=== PATIENT | female | born 1940 | race Caucasian/White ===

== ENCOUNTER 2019-08-01 01:20 | Day surgery (SDC) | payer MEDICARE, SELFPAY ==
[2019-07-26 13:35] VITALS: BMI 41.9
--- NOTE | 2019-07-31 17:20 | WPDANESEPP ---
Anes - Eval Pre Procedure Procedure: Operation Date: 08/01/19 07:30 Proposed Procedures p Screening Colonoscopy - Otoniel Grant MD Date/Time: 07/31/19 17:20 Pre Op Diagnosis: Neoplasm screening Patient Data Age: 78 Gender: F Height: 1.6 m Weight: 107.3 kg Allergies Allergy/AdvReac Type Severity Reaction Status Date / Time Penicillins Allergy Unknown Urticaria Verified 07/26/19 13:29 montelukast AdvReac Intermediate Hallucinati Verified 07/26/19 14:08 ng Home Medications Medication Instructions Recorded Confirmed Type albuterol sulfate 90 mcg/actuation 2 puff INHALATION Q4H PRN gm 05/16/19 07/26/19 History aerosol inhaler cholecalciferol (vitamin D3) 4,000 4,000 unit PO DAILY 05/16/19 07/26/19 History unit capsule coenzyme Q10 100 mg capsule 100 mg PO DAILY 05/16/19 07/26/19 History fluticasone 250 mcg-salmeterol 50 1 inhalation INHALATION BID 05/16/19 07/26/19 History mcg/dose blistr powdr for inhalation levothyroxine 150 mcg tablet 150 mcg PO DAILY 05/16/19 07/26/19 History montelukast 10 mg tablet 10 mg PO DAILY 05/16/19 07/09/19 History multivitamin,ze-gtut-snyrnuwi 1 tablet PO DAILY 05/16/19 07/26/19 History hyoscyamine sulfate 0.125 mg tablet 0.125 mg PO QID PRN #60 tablet 07/09/19 07/26/19 Rx ondansetron HCl 4 mg tablet 4 mg PO Q8H PRN 07/09/19 07/26/19 History peg 3350-electrolytes 236 4,000 ml PO Q10M #4000 ml 07/09/19 Rx gram-22.74 gram-6.74 gram-5.86 gram solution pravastatin 20 mg tablet 20 mg PO DAILY #30 tablet 07/09/19 07/26/19 Rx famotidine [Pepcid AC] 10 mg PO DAILY 07/26/19 07/26/19 History metoprolol succinate 25 mg PO DAILY 07/26/19 07/26/19 History Patient hx anesthesia problems: none Family hx anesthesia problems: none PMFSH Past Medical History Medical History (Updated 07/31/19 @ 17:21 by Jo Ann Mckinney CRNA) 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 artery 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 Fibromyalgia GERD (gastroesophageal reflux disease) Hypothyroidism, unspecified Irritable bowel syndrome with diarrhea Mixed hyperlipidemia Moderate persistent asthma without status asthmaticus without complication Nausea Pancreatitis Surgical History Surgical History (Updated 07/31/19 @ 17:21 by Jo Ann Mckinney CRNA) Hx of cholecystectomy Family History Family History (Updated 10/11/18 @ 13:01 by DOCTOR UNKNOWN) Sibling Family history of condition Family history of Parkinson's disease Social History Social History Smoking status: Never smoker Alcohol intake: never Exam Day of Procedure 07/31/19 17:20
--- NOTE | 2019-08-01 06:38 | WPDANESEFPP ---
Anes - Eval Final PreProcedure Day of Procedure 08/01/19 06:38 Patient weight: morbidly obese Heart: regular rate and rhythm Lungs: clear to auscultation Airway: Mallampati scale class II Neurological: alert and oriented Last oral intake: >/= 8 hours ASA classification: III Emergent: no Anesthetic plan: proceed Anesthesia type and monitoring: general GIVS and standard monitoring Informed Consent: The patient's anesthetic plan and its attendant risks and benefits were discussed with the patient/family/POA. Questions were solicited and answers provided to the satisfaction of the patient/family/POA.
[2019-08-01] MEDS: LACTATED RINGERS 1,000 ML 30 ML IV CONT (06:56)
[2019-08-01 07:12] VITALS: BP 126/98; PULSE 111; RESP 22; TEMP 36; O2SAT 98; BMI 40.1
--- NOTE | 2019-08-01 07:37 | PM.HPGS ---
History of Present Illness History of Present Illness Consent: Risks, benefits, and alternatives have been discussed and questions answered. Patient agrees to proceed with procedure. Chief complaint: Neoplasm screening Narrative: Damaris Wilhelm is a 78 year old female with diarrhea for few months, last colonoscopy 10 years ago Review of Systems Constitutional: Constitutional: Denies headache(s) and Denies weakness Eyes: Eyes: Denies blurry vision ENT: Reports Normal hearing present, Denies headache(s) and Denies neck pain Cardiovascular: Cardiovascular: Denies chest pain and Denies dyspnea Respiratory: Respiratory: Denies dyspnea Gastrointestinal: Gastrointestinal: Reports no additional gastrointestinal complaints Genitourinary: Genitourinary: Denies dysuria Musculoskeletal: Musculoskeletal: Denies neck pain Integumentary/Breasts: Skin/Breast: Denies dry skin Neurologic: Reports Normal hearing present, Denies headache(s) and Denies weakness Psychiatric: Psychiatric: Denies anxiety Endocrine: Endocrine: Denies change in body appearance Hematologic/Lymphatic: Hematologic/Lymphatic: Denies easy bleeding Allergic/Immunologic: Allergic/Immunologic: Denies urticaria PMFSH Past Medical History Medical History (Updated 08/01/19 @ 07:38 by Otoniel Grant MD) 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 artery 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 Diarrhea Fibromyalgia GERD (gastroesophageal reflux disease) Hypothyroidism, unspecified Irritable bowel syndrome with diarrhea Mixed hyperlipidemia Moderate persistent asthma without status asthmaticus without complication Nausea Pancreatitis Surgical History Surgical History (Updated 07/31/19 @ 17:21 by Jo Ann Mckinney CRNA) Hx of cholecystectomy Family History Family History (Updated 10/11/18 @ 13:01 by DOCTOR UNKNOWN) Sibling Family history of condition Family history of Parkinson's disease Social History Social History Smoking status: Never smoker Alcohol intake: never Meds Home Medications and Allergies Home Medications Medication Instructions Recorded Confirmed Type albuterol sulfate 90 mcg/actuation 2 puff INHALATION Q4H PRN gm 05/16/19 08/01/19 History aerosol inhaler cholecalciferol (vitamin D3) 4,000 4,000 unit PO DAILY 05/16/19 07/26/19 History unit capsule coenzyme Q10 100 mg capsule 100 mg PO DAILY 05/16/19 07/26/19 History fluticasone 250 mcg-salmeterol 50 1 inhalation INHALATION BID 05/16/19 07/26/19 History mcg/dose blistr powdr for inhalation levothyroxine 150 mcg tablet 150 mcg PO DAILY 05/16/19 07/26/19 History montelukast 10 mg tablet 10 mg PO DAILY 05/16/19 08/01/19 History multivitamin,ub-yloj-bmfbkqig 1 tablet PO DAILY 05/16/19 07/26/19 History hyoscyamine sulfate 0.125 mg tablet 0.125 mg PO QID PRN #60 tablet 07/09/19 07/26/19 Rx ondansetron HCl 4 mg tablet 4 mg PO Q8H PRN 07/09/19 07/26/19 History pravastatin 20 mg tablet 20 mg PO DAILY #30 tablet 07/09/19 07/26/19 Rx famotidine [Pepcid AC] 10 mg PO DAILY 07/26/19 08/01/19 History metoprolol succinate 25 mg PO DAILY 07/26/19 07/26/19 History Allergies Allergy/AdvReac Type Severity Reaction Status Date / Time Penicillins Allergy Unknown Urticaria Verified 08/01/19 06:42 montelukast AdvReac Intermediate Hallucinati Verified 08/01/19 06:42 ng Vital Signs Vital Signs - 24 hr 08/01/19 07:12 Temperature 96.8 F L Pulse Rate 111 H Respiratory Rate 22 H Blood Pressure 126/98 H Pulse Oximetry 98 Exam Const: General: comfortable and no acute distress Nutritional Appearance: obese HENMT: General nose exam: Normal nares present Eyes: General: appearance normal, both eyes and all related structures Neck: Neck: no JVD Resp: Auscultation: clear to auscultation bilaterally Cardio: Rate: regular rate Rhythm: regular rhythm GI: Inspection: non-distended GI Palp: Yes Soft to p
[2019-08-01 08:00] VITALS: BP 125/65; PULSE 85; RESP 24; O2SAT 99
[2019-08-01 08:10] VITALS: BP 130/76; PULSE 85; RESP 18; O2SAT 98
[2019-08-01 08:20] VITALS: BP 142/64; PULSE 84; RESP 22; O2SAT 99
--- NOTE | 2019-08-01 08:28 | SUR.PHASEII ---
0820 IV D/C'D, SITE WNL/NO ECCYMOSIS.
== END 2019-08-01 08:31 | disposition home or self-care (01) ==
PROVIDERS: PCP Family Medicine; Visit Provider Internal Medicine Gastroenterology
PROC: 0DJD8ZZ Inspection of Lower Intestinal Tract, Via Natural or Artificial Opening Endoscopic (ICD-10-PCS; CPT 45378; principal; 2019-08-01 07:30)
DX: Z12.11 Encounter for screening for malignant neoplasm of colon (principal); K58.0 Irritable bowel syndrome with diarrhea; K57.30 Diverticulosis of large intestine without perforation or abscess without bleeding; K64.8 Other hemorrhoids; I25.10 Atherosclerotic heart disease of native coronary artery without angina pectoris; J45.40 Moderate persistent asthma, uncomplicated; E78.2 Mixed hyperlipidemia; M79.7 Fibromyalgia; H81.10 Benign paroxysmal vertigo, unspecified ear; E03.9 Hypothyroidism, unspecified; K21.9 Gastro-esophageal reflux disease without esophagitis
CPT/HCPCS: 45380; 88305; J2704; J7120

== ENCOUNTER 2020-06-18 06:54 | Outpatient (NON) | payer MEDICARE, SELFPAY ==
[2020-06-18 22:08] LABS: SARS-CoV-2 RNA PCR Negative
== END 2020-06-18 06:55 ==
LOC: ANHCOVIDDT 07:01
PROVIDERS: PCP Family Medicine; Visit Provider Family Medicine
DX: J01.00 Acute maxillary sinusitis, unspecified (principal); Z20.828 Contact with and (suspected) exposure to other viral communicable diseases
CPT/HCPCS: 87635; C9803; U0003

== ENCOUNTER 2020-10-03 12:58 | Outpatient (CLI) | payer MEDICARE, SELFPAY | END 2020-10-03 12:59 | disposition home or self-care (01) | LOC: ANHCOVIDVC 12:58 | PROVIDERS: PCP Family Medicine | DX: Z23 Encounter for immunization (principal) | CPT/HCPCS: 0001A; 91300 ==

== ENCOUNTER 2020-10-24 13:09 | Outpatient (CLI) | payer MEDICARE, SELFPAY | END 2020-10-24 13:10 | disposition home or self-care (01) | LOC: ANHCOVIDVC 13:10 | PROVIDERS: PCP Family Medicine | DX: Z23 Encounter for immunization (principal) | CPT/HCPCS: 0002A; 91300 ==

== ENCOUNTER 2020-11-11 16:00 | Inpatient (IN) | payer MEDICARE, SELFPAY ==
[2020-11-11] VITALS (18 sets, daily range): BP systolic 138–155; BP diastolic 68–91; PULSE 72–96; RESP 11–22; TEMP 36.2–36.7; O2SAT 97–100; BMI 41.8
--- NOTE | ~2020-11-11 | XR_ITS ---
EXAMINATION: XR chest 2V DATE: 11/11/2020 17:29 INDICATION: Left-sided chest pain, asthma and dyspnea on exertion. Weakness and nausea. TECHNIQUE: PA and lateral views of the chest were obtained. COMPARISON: Chest radiograph and CT dated 03/14/2019 FINDINGS: Chronic mild lingular atelectasis/scarring. No new airspace opacities, pulmonary edema, pleural effus ion or pneumothorax. The cardiomediastinal silhouette is normal. Moderate thoracic spondylosis. IMPRESSION: 1. Chronic mild lingular atelectasis/scarring. No acute cardiopulmonary disease. Reviewed, dictated and finalized at location A. IMPRESSION: 1. Chronic mild lingular atelectasis/scarring. No acute cardiopulmonary disease .
--- NOTE | ~2020-11-11 | CT_ITS ---
EXAMINATION: CT abdomen pelvis w con DATE: 11/11/2020 19:32 INDICATION: Generalized abdominal pain. Weight loss for 6 weeks. TECHNIQUE: Computed tomography (CT) of the abdomen and pelvis was performed with 100 cc Omnipaque 350 intravenous contrast. The dose-length product was 1328.09 mGy-cm. Automated exposure control and ite rative reconstruction technique were employed. COMPARISON: CT dated 10/28/2014. FINDINGS: Soft tissue in the breasts is not significantly changed allowing for differences of techniq ue. Heart size normal. No significant pleural or pericardial effusion. Dependent atelectasis. There i s atherosclerosis without aneurysm. No lymphadenopathy. There is atrophy of the psoas muscles, right greater than left. Fatty infiltration of the liver. The spleen, pancreas, adrenal glands are unremarkable. There are su ateral renal cysts. Gallbladder is not identified, likely surgically absent. Nonobstructive bowel gas pattern. Normal appendix. Colonic diverticulosis without evidence for diverticulitis. Small fat-cont aining umbilical hernia. There are bilateral hip arthroplasties. Streak artifact from hip replacement s limit evaluation of the pelvis. No free air or free fluid identified. No acute osseous abnormality. IMPRESSION: 1. No acute abdominal abnormality. Reviewed, dictated and finalized at location A.
--- NOTE | 2020-11-11 16:59 | ECG_ITS ---
Measurements Intervals [place] Rate: 90 P: 8 VA: 202 QRS: -37 QRSD: 82 T: -1 QT: 346 QTc: 425 Interpretive Statements SINUS RHYTHM LEFT AXIS DEVIATION POOR R WAVE PROGRESSION, ANTERIOR LEADS INFERIOR INFARCT, AGE INDETERMINATE ABNORMAL ECG Electronically Signed On 11-11-2020 20:28:41 CDT by Pato Aguirre D.O.
[2020-11-11 17:32] LABS: Basophils Absolute Auto 0.1 K/mm3 (0.0-0.1); Basophils Percent Auto 0.5 % (0.2-1.2); Eosinophils Absolute Auto 0.2 K/mm3 (0-0.3); Eosinophils Percent Auto 1.2 % (0-4.4); Hematocrit 46.2 % (37.0-47.0); Hemoglobin 15.3 g/dL (12.0-15.0); Immature Granulocyte Absolute 0.03 K/mm3 (0.00-0.031); Immature Granulocyte Percent A 0.2 % (0-0.5); Lymphocytes Absolute Auto 3.54 K/mm3 (0.9-3.2); Lymphocytes Percent Auto 27.6 % (18.3-44.2); Mean Corpuscular HGB Conc 33.1 g/dl (32-36); Mean Corpuscular Volume 93.7 fl (80-100); Mean Platelet Volume 10.5 fl (7.4-10.4); Monocytes Absolute Auto 0.7 K/mm3 (0.1-0.6); Monocytes Percent Auto 5.8 % (2.6-8.5); Neutrophils Absolute Auto 8.3 K/mm3 (1.3-6.7); Neutrophils Percent Auto 64.7 % (45.5-73.1); Platelet Count Result 319 k/mm3 (150-375); Red Blood Count 4.93 M/mm3 (4.2-5.4); Red Cell Distribution Width 14.7 % (11.5-14.5); White Blood Count 12.8 K/mm3 (4.5-10.0)
[2020-11-11 17:41] LABS: Anion Gap 12 mmol/L (8-16); Blood Urea Nitrogen 14 mg/dL (7-17); Calcium 9.6 mg/dL (8.4-10.2); Carbon Dioxide 18 mmol/L (22-30); Chloride 110 mmol/L (98-107); Estimated CRCL calculation 63 ml/min; Estimated Glomerular Filt Rate > 60; Glucose 122 mg/dL (65-105); Sodium 140 mmol/L (137-145)
[2020-11-11 17:52] LABS: INR 0.8; Prothrombin Time 12.1 Seconds (11.1-14.7)
[2020-11-11 17:53] LABS: NT Pro B Type Natriuretic Pept 149 pg/mL (5-100); Troponin I < 0.012 ng/mL (0.000-0.034)
--- NOTE | 2020-11-11 19:06 | ED.RECABL ---
HPI - Recheck/Abnormal Lab/Rx General Chief Complaint: Recheck/Abnormal Lab/Rx Stated Complaint: Sob,Elevated Blood Pressure Time Seen by Provider: 11/11/20 19:06 Source: patient Mode of arrival: ambulatory Limitations: no limitations History of Present Illness HPI narrative: Patient is a 80-year-old female complaining of chest discomfort, fatigue, generalized weakness, nausea, loss of appetite and dizziness for the past 6 weeks and getting worse . Patient's chest discomfort is mild intermittent currently denies any pain. Patient also complaining of abdominal discomfort, described as tightness, accompanied by intermittent diarrhea described as loose watery. Patient states that she has been in a lot of stress lately taking care of her sick for the past 6 weeks. Related Data Home Medications Medication Instructions Recorded Confirmed cholecalciferol (vitamin D3) 100 4,000 unit PO DAILY 05/16/19 07/16/20 mcg (4,000 unit) capsule coenzyme Q10 100 mg capsule 100 mg PO DAILY 05/16/19 07/16/20 multivitamin,zi-zbkn-yrmruybm 1 tablet PO DAILY 05/16/19 07/16/20 famotidine [Pepcid AC] 10 mg PO DAILY 07/26/19 07/16/20 metoprolol succinate 25 mg PO DAILY 07/26/19 07/16/20 rosuvastatin 5 mg tablet 5 mg PO DAILY 02/28/20 07/16/20 Allergies Allergy/AdvReac Type Severity Reaction Status Date / Time Penicillins Allergy Unknown Urticaria Verified 11/11/20 19:13 montelukast AdvReac Intermediate Hallucinati Verified 11/11/20 19:13 ng Review of Systems Review of Systems: All systems reviewed & are unremarkable except as noted in HPI and below Constitutional: Constitutional: Denies body ache(s), Denies chills, Denies excessive sweating, Denies fatigue, Denies fever(s), Denies headache(s), Denies lethargy, Denies malaise and Denies weight loss Eyes: Eyes: Denies blurry vision, Denies change in vision and Denies loss of vision ENT: Denies dizziness, Denies ear discharge, Denies headache(s), Denies lip swelling, Denies epistaxis, Denies nasal congestion, Denies neck pain, Denies throat swelling and Denies tongue swelling Cardiovascular: Cardiovascular: Denies chest pain, Denies chest pain at rest, Denies chest pain with activity, Denies diaphoresis, Denies rapid heart rate, Denies edema, Denies irregular heart rhythm, Denies lightheadedness, Denies palpitations and Denies dyspnea Respiratory: Respiratory: Denies chest congestion, Denies cough, Denies hemoptysis and Denies dyspnea Gastrointestinal: Gastrointestinal: Denies melena, Denies hematochezia, Denies diarrhea, Denies vomiting and Denies hematemesis Musculoskeletal: Musculoskeletal: Denies abnormal gait, Denies deformity, Denies joint swelling, Denies limited range of motion, Denies neck pain and Denies numbness Neurologic: Denies Abnormal speech present, Denies abnormal gait, Denies confusion, Denies headache(s), Denies focal weakness, Denies loss of vision, Denies numbness, Denies Other visual disturbances, Denies Sensory deficit (Neuro) and Denies weakness Psychiatric: Psychiatric: Denies confusion, Denies depression, Denies auditory hallucinations, Denies homicidal ideation and Denies suicidal ideation Endocrine: Endocrine: Denies cold intolerance, Denies excessive sweating, Denies fatigue, Denies heat intolerance and Denies palpitations Hematologic/Lymphatic: Hematologic/Lymphatic: Denies easy bleeding and Denies easy bruising Allergic/Immunologic: Allergic/Immunologic: Denies lip swelling, Denies throat swelling and Denies tongue swelling PMFSH Past Medical History Medical History Abnormal fasting glucose Acute non-recurrent maxillary sinusitis 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 artery 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 Diarrhea Fibromyalgia GERD (gastroesophageal reflux disease) Hirsutism Hypothyroidism, unspecified Irritable bowel syndrome with diarrhea Migraine wit
[2020-11-11] MEDS: LACTATED RINGERS 1,000 ML 500 ML IV CONT (20:26)
[2020-11-11 20:57] LABS: Add Urine Microscopic? YES; Appearance Urine Cloudy (Clear); Bacteria Urine Trace /hpf; Bilirubin Urine Negative (Negative); Color Urine Yellow (Yellow); Glucose Urine UA Negative (Negative); Ketones Urine Negative (Negative); Leukocyte Esterase Ur 3+ LEU/UL (Negative); Mucus Urine Moderate /lpf; Nitrate Urine Negative (Negative); Protein Urine Negative (Negative); RBC Urine 21-50 /hpf (0-2); Squamous Epithelial Cell Urine Many /hpf (Few); Urobilinogen Urine Negative mg/dL (<2.0); WBC Urine >75 /hpf
[2020-11-11 21:01] LABS: Blood Urine Negative (Negative); Specific Grav Ur 1.015 (1.001-1.035)
[2020-11-11] MEDS: ASPIRIN 81 MG CHEWABLE TABLET 324 MG PO (21:25)
[2020-11-11 22:21] LABS: Troponin I < 0.012 ng/mL (0.000-0.034)
--- NOTE | 2020-11-11 22:53 | ADMGEN ---
This patient, Damaris Wilhelm, was admitted to 2 Medical Room 256-01. Patient/family oriented to hospital policies and general routines including ID bracelet, bed and alarms, visiting hours, pain management, procedures, bathroom and other care routines, personal items, smoking policy, room service/diet, and visiting hours. Information on how to activate the Rapid Response Team has been discussed. Patient/Family are encouraged to report perceived risks to care and to ask questions if they do not understand what they are told or what they should do.
[2020-11-12] VITALS (10 sets, daily range): BP systolic 126–149; BP diastolic 60–73; PULSE 73–89; RESP 12–18; TEMP 35.6–36.3; O2SAT 95–97; BMI 41.8
[2020-11-12 01:33] LABS: Troponin I < 0.012 ng/mL (0.000-0.034)
--- NOTE | 2020-11-12 03:20 | PM.IMHP ---
H&P: HPI History of Present Illness Date/Time: 11/12/20 03:20 Chief Complaint: Weakness Narrative: This is a 80-year-old female with past medical history significant for irritable bowel syndrome, asthma, obesity, impaired glucose tolerance ,hypertension. Patient presented to the emergency room due to generalized weakness of burning with urination poor appetite ,chills, nausea but no vomiting, fatigue. Patient states that she has been taking care of her for the last 6 weeks after he fell ill and has taken a toll on her she has barely any energy to feed the cat and dog . Today she presented to the emergency after at home she had an episode of dizziness checked her blood pressure was 168 over 95 and that was sitting in when she stood up it went up to 185 over 98. Patient denies any near syncope ,syncope, falls, chest pain, shortness of breath, cough, sputum production, no leg swelling no PND no orthopnea. Preliminary workup was significant for a urinalysis with wbc's over 75 per high power field. CBC with mild leukocytosis. A chest x-ray was clear for any infiltrate Review of Systems Review of Systems: Narrative: Patient presented to the emergency room due to dizziness fatigue generalized weakness poor appetite Constitutional: Constitutional: Reports chills, Reports fatigue, Reports lethargy, Reports poor appetite and Reports weakness Eyes: Eyes: Denies change in vision ENT: Denies nasal congestion, Denies nasal discharge and Denies nasal obstruction Cardiovascular: Cardiovascular: Denies irregular heart rhythm, Denies leg edema, Denies lightheadedness, Denies radiating jaw, neck or arm pain, Denies palpitations, Denies dyspnea and Denies dyspnea on exertion Respiratory: Respiratory: Denies cough and Denies dyspnea Gastrointestinal: Gastrointestinal: Denies change in bowel habits, Denies nausea and Denies vomiting Genitourinary: Genitourinary: Reports dysuria Musculoskeletal: Musculoskeletal: Reports muscle weakness Integumentary/Breasts: Skin/Breast: Denies rash Neurologic: Denies focal weakness and Denies Sensory deficit (Neuro) Psychiatric: Psychiatric: Reports no additional psychiatric complaints Endocrine: Endocrine: Reports no additional endocrine complaints Hematologic/Lymphatic: Hematologic/Lymphatic: Reports no additional hematologic/lymphatic complaints Allergic/Immunologic: Allergic/Immunologic: Reports no additional allergic/immunologic complaints PMFSH Past Medical History Medical History Abnormal fasting glucose Acute non-recurrent maxillary sinusitis 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 artery 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 Diarrhea Fibromyalgia GERD (gastroesophageal reflux disease) Hirsutism Hypothyroidism, unspecified Irritable bowel syndrome with diarrhea Migraine without aura and without status migrainosus, not intractable Mixed hyperlipidemia Moderate persistent asthma without status asthmaticus without complication Nausea Neoplasm of skin of cheek Pancreatitis Surgical History Surgical History Hx of cholecystectomy Family History Family History Sibling Family history of condition Family history of Parkinson's disease Social History Social History Smoking status: Never smoker Alcohol intake: never Substance use: never Substance use type: does not use Gender identity (if verbalized by the patient): Female Spiritual care concerns: No Meds Home Medications and Allergies Home Medications Medication Instructions Recorded Confirmed Type cholecalciferol (vitamin D3) 100 4,000 unit PO DAILY 05/16/19 11/11/20 History mcg (4,000 unit) capsule coenzyme Q10 100 mg capsule 100 mg PO DAILY 05/16/19 0
[2020-11-12] MEDS: ONDANSETRON HCL ODT 4 MG TABLET PO ×2 (05:20→13:02)
[2020-11-12] MEDS: LEVOTHYROXINE SODIUM 150 MCG TABLET PO (06:01)
[2020-11-12] MEDS: FLUTICASONE/SALMETEROL 115-21 MCG INHALER 1 PUFF 2 PUFF INHALATION ×2 (09:42→21:25)
[2020-11-12] MEDS: SPIRONOLACTONE 25 MG TABLET PO ×2 (09:50→16:25)
[2020-11-12] MEDS: THERAPEUTIC MULTIVITAMINS/MINERALS TAB (*BKC) 1 TABLET PO (09:50)
[2020-11-12] MEDS: METOPROLOL SUCCINATE EXT REL 25 MG TABCR PO (09:50)
[2020-11-12] MEDS: FAMOTIDINE 10 MG TABLET PO (09:50)
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
[2020-11-12] MEDS: polyethylene glycoL 3350 17 GM POWD.PACK PO (14:26)
[2020-11-12] MEDS: PANTOPRAZOLE SODIUM IV 40 MG VIAL IV PUSH (14:26)
[2020-11-12 14:39] LABS: D Dimer 0.27 ug/mL (<0.48)
[2020-11-12] MEDS: diazePAM (*CRX) 2 MG TABLET PO (16:28)
[2020-11-13] VITALS (7 sets, daily range): BP systolic 130–136; BP diastolic 63–65; PULSE 68–113; RESP 18; TEMP 36.2–36.5; O2SAT 96–97
[2020-11-13 05:38] LABS: Basophils Absolute Auto 0.1 K/mm3 (0.0-0.1); Basophils Percent Auto 0.5 % (0.2-1.2); Eosinophils Absolute Auto 0.2 K/mm3 (0-0.3); Eosinophils Percent Auto 2.4 % (0-4.4); Hematocrit 40.4 % (37.0-47.0); Hemoglobin 13.1 g/dL (12.0-15.0); Immature Granulocyte Absolute 0.02 K/mm3 (0.00-0.031); Immature Granulocyte Percent A 0.2 % (0-0.5); Lymphocytes Percent Auto 37.3 % (18.3-44.2); Mean Corpuscular HGB Conc 32.4 g/dl (32-36); Mean Corpuscular Hemoglobin 30.8 pg (26-34); Mean Corpuscular Volume 95.1 fl (80-100); Mean Platelet Volume 10.4 fl (7.4-10.4); Monocytes Absolute Auto 0.8 K/mm3 (0.1-0.6); Monocytes Percent Auto 8.9 % (2.6-8.5); Neutrophils Absolute Auto 4.6 K/mm3 (1.3-6.7); Neutrophils Percent Auto 50.7 % (45.5-73.1); Platelet Count Result 277 k/mm3 (150-375); Red Blood Count 4.25 M/mm3 (4.2-5.4); White Blood Count 9.1 K/mm3 (4.5-10.0)
[2020-11-13 05:50] LABS: Alanine Aminotransferase 24 U/L (4-35); Albumin Level 3.4 g/dL (3.5-5.1); Alkaline Phosphatase 67 U/L (38-126); Anion Gap 7 mmol/L (8-16); Aspartate Amino Transferase 28 U/L (14-36); Bilirubin,Total 0.3 mg/dL (0.2-1.3); Blood Urea Nitrogen 10 mg/dL (7-17); Carbon Dioxide 27 mmol/L (22-30); Chloride 109 mmol/L (98-107); Estimated CRCL calculation 50 ml/min; Estimated Glomerular Filt Rate 60; Glucose 120 mg/dL (65-105); Potassium 3.9 mmol/L (3.4-5.0); Sodium 143 mmol/L (137-145)
[2020-11-13] MEDS: LEVOTHYROXINE SODIUM 150 MCG TABLET PO (05:56)
[2020-11-13 06:44] LABS: Thyroid Stimulating Hormone Reflex 0.833 uIU/mL (0.465-4.68)
[2020-11-13] MEDS: polyethylene glycoL 3350 17 GM POWD.PACK PO (08:35)
[2020-11-13] MEDS: THERAPEUTIC MULTIVITAMINS/MINERALS TAB (*BKC) 1 TABLET PO (08:36)
[2020-11-13] MEDS: METOPROLOL SUCCINATE EXT REL 25 MG TABCR PO (08:36)
[2020-11-13] MEDS: PANTOPRAZOLE SODIUM IV 40 MG VIAL IV PUSH (08:37)
[2020-11-13] MEDS: FLUTICASONE/SALMETEROL 115-21 MCG INHALER 1 PUFF 2 PUFF INHALATION (08:38)
[2020-11-13] MEDS: SPIRONOLACTONE 25 MG TABLET PO (08:38)
--- NOTE | 2020-11-13 09:15 | PM.DS ---
DS: Admitting Diagnosis Admitting Diagnosis Admitting Diagnosis: uti DS: Discharge Diagnosis Discharge Diagnosis (1) Urinary tract infection: Qualifiers: Hematuria presence: without hematuria Urinary tract infection type: site unspecified Qualified Code(s): N39.0 - Urinary tract infection, site not specified Code(s): N39.0 - Urinary tract infection, site not specified Status: Acute Assessment and Plan: Growth of mixed ya suggesting possible contamination but the patient had improvement with oral antibiotics -will finish off antibiotics outpatient (2) Abnormal fasting glucose: Code(s): R73.01 - Impaired fasting glucose Status: Acute Assessment and Plan: A1c 6.1 -follow with primary -continue home metformin (3) Moderate persistent asthma without status asthmaticus without complication: Code(s): J45.40 - Moderate persistent asthma, uncomplicated Status: Acute Assessment and Plan: Stable, I do not suspect this to be the cause of her dyspnea on exertion. (4) Benign paroxysmal positional vertigo due to bilateral vestibular disorder: Code(s): H81.13 - Benign paroxysmal vertigo, bilateral Status: Acute Assessment and Plan: Patient has had this for 2 years -much better at discharge, back to baseline -follow-up with ENT (5) Hypothyroidism, unspecified: Qualifiers: Hypothyroidism type: unspecified Qualified Code(s): E03.9 - Hypothyroidism, unspecified Code(s): E03.9 - Hypothyroidism, unspecified Status: Acute Assessment and Plan: TSH WNL -continue levothyroxine (6) Fibromyalgia: Code(s): M79.7 - Fibromyalgia Status: Acute Assessment and Plan: Chronic and stable (7) GERD (gastroesophageal reflux disease): Qualifiers: Esophagitis presence: without esophagitis Qualified Code(s): K21.9 - Gastro-esophageal reflux disease without esophagitis Code(s): K21.9 - Gastro-esophageal reflux disease without esophagitis Status: Acute Assessment and Plan: Will start Protonix instead of Pepcid since the patient has been having nausea and vomiting for 6 weeks -consider outpatient GI follow-up for EGD if she continues to have problems (8) Coronary artery 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: Qualifiers: Coronary Disease-Associated Artery/Lesion type: unspecified vessel or lesion type [place] vs. transplanted heart: absentee-[place] heart Qualified Code(s): I25.10 - Atherosclerotic heart disease of [place] coronary artery without angina pectoris Code(s): I25.10 - Atherosclerotic heart disease of [place] coronary artery without angina pectoris Status: Acute Assessment and Plan: No acute issues -troponins negative x3, BNP slightly elevated but not worrisome for her age (9) Irritable bowel syndrome with diarrhea: Code(s): K58.0 - Irritable bowel syndrome with diarrhea Status: Acute Assessment and Plan: She is a bit constipated -start MiraLax (10) Generalized weakness: Code(s): R53.1 - Weakness Status: Acute Assessment and Plan: Secondary due to her dizziness and now worsened with her UTI -she did well with PT/OT and felt to be back to her baseline (11) Dyspnea on exertion: Code(s): R06.00 - Dyspnea, unspecified Status: Acute Assessment and Plan: Resolved -Could be due to deconditioning or acute illness -d-dimer neg, no hypoxia, no cp or SOB day of discharge. PE less likely -she sees Dr. Tafoya is group and last had a specialized CT which showed 25% disease and cardiac catheterization within the last 10 years with no intervention -she also had a stress test -follow-up with his office (12) Dizziness: Code(s): R42 - Dizziness and giddiness Status: Acute Assessment and Plan: Acute on chronic -she said this starte
== END 2020-11-13 17:30 | disposition home or self-care (01) | DRG 690 ==
LOC: ANHED 21:18 → ANH2MED 22:00
PROVIDERS: Emergency Medicine; Physician Assistant; Admitting Provider Internal Medicine; Emergency Provider Emergency Medicine; PCP Family Medicine; Visit Provider Family Medicine
DX: N39.0 Urinary tract infection, site not specified (principal); Z68.41 Body mass index [BMI] 40.0-44.9, adult; R73.01 Impaired fasting glucose; J45.40 Moderate persistent asthma, uncomplicated; H81.13 Benign paroxysmal vertigo, bilateral; E03.9 Hypothyroidism, unspecified; M79.7 Fibromyalgia; R06.00 Dyspnea, unspecified; K21.9 Gastro-esophageal reflux disease without esophagitis; I25.10 Atherosclerotic heart disease of native coronary artery without angina pectoris; K58.0 Irritable bowel syndrome with diarrhea; L68.0 Hirsutism; E66.9 Obesity, unspecified; J45.909 Unspecified asthma, uncomplicated; Z90.49 Acquired absence of other specified parts of digestive tract
CPT/HCPCS: 36415; 71046; 74177; 80048; 80076; 81001; 83880; 84443; 84484; 85025; 85380; 85610; 85730; 87086; 87088; 93005; 96361; 96365; 97110; 97116; 97161; 99285; A9270; C9113; G0378; J0696; J7120; Q9967

== ENCOUNTER 2021-11-09 15:06 | Inpatient (IN) | payer MEDICARE, SELFPAY ==
[2021-11-09] VITALS (12 sets, daily range): BP systolic 141–180; BP diastolic 84–113; PULSE 90–118; RESP 16–26; TEMP 36.5; O2SAT 92–94
--- NOTE | ~2021-11-09 | XR_ITS ---
EXAMINATION: XR chest 2V Exam Date/Time: 11/09/2021 15:45 CDT HISTORY: SOB, HX CAD, HX ASTHMA, HEADACHE Comparison: 11/11/2020. RESULT: Lines, tubes, and devices: None. Lungs and pleura: Clear. Cardiomediastinal silhouette: Stable cardiomediastinal silhouette. Other: No acute osseous or upper abdominal finding. IMPRESSION: No acute cardiopulmonary process. Reviewed, dictated and finalized at location K.
--- NOTE | ~2021-11-09 | CT_ITS ---
EXAMINATION: CTA chest PE protocol DATE: 11/09/2021 17:29 CDT INDICATION: Chest pain. Anxiety. Elevated d-dimer. Shortness of breath. TECHNIQUE: Computed tomographic angiography (CTA) of the chest was performed with 100 mL Omnipaque-35 0 intravenous contrast. The dose-length product was 888.09 mGy-cm. Maximum intensity projection 3D-re constructions of the aorta and other arteries were constructed by the technologist on a separate work station. COMPARISON: CT dated 03/14/2019. FINDINGS: Study is technically adequate. There is large amount of thrombus in the main pulmonary kimberley mona as well as bilateral segmental and subsegmental pulmonary arteries, consistent with pulmonary em bolism. There is atherosclerosis of the aorta without evidence for aneurysm or dissection. No signifi cant pleural or pericardial effusion. No thoracic lymphadenopathy. There are patchy groundglass opaci ties throughout both lungs and. There is dependent atelectasis. No endobronchial lesions. There is a 1.6 cm left renal cyst. IMPRESSION: 1. Bilateral pulmonary embolism, moderate-large thrombus burden. 2: Patchy groundglass opacities in both lungs which may reflect small airway disease or infection. Dr. Andrés Perry discussed with Dr. Derrick Jiménez MD at 11/09/2021 17:35 CDT. Reviewed, dictated and finalized at location A. IMPRESSION: 1. Bilateral pulmonary embolism, moderate-large thrombus burden. 2: Patchy groundglass opacities in both lungs which may reflect small airway d isease or infection. Dr. Andrés Perry discussed with Dr. Derrick Jiménez MD at 11/09/2021 17:35 CDT.
--- NOTE | ~2021-11-09 | US_ITS ---
EXAMINATION: US venous doppler [facility] DATE: 11/10/2021 08:21 INDICATION: Pulmonary embolism TECHNIQUE: Grayscale ultrasound images without and with compression and Doppler ultrasound images of the bilateral lower extremity veins were obtained. COMPARISON: None. FINDINGS: The visualized portions of right common femoral vein, profunda (deep) femoral vein, femoral vein, pop liteal vein, posterior tibial veins, peroneal veins, gastrocnemius vein and greater saphenous vein ou tflow are patent. Noncompressible deep venous thrombosis in the left popliteal vein as well as the left posterior tibia l and popliteal veins. The visualized portions of left common femoral vein, profunda femoral vein, fe moral vein, gastrocnemius vein and greater saphenous vein outflow are patent. IMPRESSION: 1. Left-sided ijvjp-[id number]-zoov deep venous lumbosacral left popliteal, posterior tibial and peroneal v eins. 2. No right-sided deep venous necrosis. Reviewed, dictated and finalized at location D. IMPRESSION: 1. Left-sided [id number]-kut-[id number] deep venous lumbosacral left popliteal, posterior tibial and peroneal veins. 2. No right-sided deep venous necrosis.
--- NOTE | 2021-11-09 15:17 | ECG_ITS ---
Measurements Intervals [place] Rate: 108 P: [place]: 0 QRS: -39 QRSD: 95 T: 16 QT: 343 QTc: 461 Interpretive Statements SINUS RHYTHM CHANGES TO ATRIAL TACHYCARDIA, THEN CHANGES TO SINUS RHYTHM LEFT AXIS DEVIATION ANTEROSEPTAL INFARCT, AGE INDETERMINATE CONSIDER INFERIOR INFARCT, AGE INDETERMINATE ABNORMAL ECG Electronically Signed On 11-10-2021 08:29:52 CDT by Pato NAPOLES
[2021-11-09 15:52] LABS: Basophils Absolute Auto 0.1 K/mm3 (0.0-0.1); Basophils Percent Auto 0.5 % (0.2-1.2); Eosinophils Absolute Auto 0.2 K/mm3 (0-0.3); Eosinophils Percent Auto 1.5 % (0-4.4); Hematocrit 46.3 % (37.0-47.0); Hemoglobin 15.8 g/dL (12.0-15.0); Immature Granulocyte Absolute 0.05 K/mm3 (0.00-0.031); Immature Granulocyte Percent A 0.4 % (0-0.5); Lymphocytes Absolute Auto 3.52 K/mm3 (0.9-3.2); Lymphocytes Percent Auto 26.6 % (18.3-44.2); Mean Corpuscular HGB Conc 34.1 g/dl (32-36); Mean Corpuscular Hemoglobin 31.6 pg (26-34); Mean Corpuscular Volume 92.6 fl (80-100); Mean Platelet Volume 10.6 fl (7.4-10.4); Monocytes Absolute Auto 0.8 K/mm3 (0.1-0.6); Neutrophils Absolute Auto 8.6 K/mm3 (1.3-6.7); Platelet Count Result 228 k/mm3 (150-375); Red Cell Distribution Width 14.1 % (11.5-14.5); White Blood Count 13.2 K/mm3 (4.5-10.0)
--- NOTE | 2021-11-09 15:54 | ED.SOB ---
HPI - SOB/Dyspnea General Chief Complaint: Shortness of Breath/Dyspnea Stated Complaint: SOB Time Seen by Provider: 11/10/21 07:32 Related Data Home Medications Medication Instructions Recorded Confirmed cholecalciferol (vitamin D3) 100 4,000 unit PO DAILY 05/16/19 09/16/21 mcg (4,000 unit) capsule coenzyme Q10 100 mg capsule (Co 100 mg PO DAILY 05/16/19 09/16/21 Q-10) multivitamin,yc-qvfe-[id number] 1 tablet PO DAILY 05/16/19 09/16/21 (Complete Multivitamin) Allergies Allergy/AdvReac Type Severity Reaction Status Date / Time Penicillins Allergy Unknown Urticaria Verified 11/09/21 15:19 montelukast AdvReac Intermediate Hallucinati Verified 11/09/21 15:19 ng PMFSH Past Medical History Medical History Abnormal fasting glucose Acute non-recurrent maxillary sinusitis Anxiety Benign paroxysmal positional vertigo due to bilateral vestibular disorder Candidiasis of genitalia in female Chronic depression (~06/2021) Controlled diabetes mellitus Coronary artery 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 cardiac catheterization 04/02/2019 with diffuse mild coronary artery disease with 25-40% lesion of the LAD, diagonal, circumflex, and obtuse marginal with normal right coronary artery. Diarrhea Fibromyalgia GERD (gastroesophageal reflux disease) Hirsutism Hypothyroidism, unspecified Irritable bowel syndrome with diarrhea Migraine without aura and without status migrainosus, not intractable Mixed hyperlipidemia Moderate persistent asthma without status asthmaticus without complication Nausea Neoplasm of skin of cheek Pancreatitis Surgical History Surgical History Hx of cholecystectomy Family History Family History Sibling Family history of condition Family history of Parkinson's disease Social History Social History Smoking status: Never smoker Alcohol intake: never Substance use: never Substance use type: does not use Gender identity (if verbalized by the patient): Female Spiritual care concerns: No Course Vital Signs Vital signs: Vital Signs Temperature 97.7 F 11/09/21 15:13 Pulse Rate 118 H 11/09/21 15:13 Respiratory Rate 18 11/09/21 15:13 Blood Pressure 180/112 H 11/09/21 15:13 Pulse Oximetry 94 11/09/21 15:13 Oxygen Delivery Room Air 11/09/21 15:13 Temperature 97.7 F 11/09/21 15:13 Pulse Rate 94 11/10/21 10:00 Respiratory Rate 16 11/10/21 10:48 Blood Pressure 124/65 11/10/21 10:48 Pulse Oximetry 96 11/10/21 10:00 Oxygen Delivery Room Air 11/10/21 01:22 MDM - SOB/Dyspnea Lab Data Result diagrams: 11/09/21 15:40 11/09/21 16:22 Labs: Lab Results 11/09/21 11/09/21 11/09/21 Range/Units 15:40 15:41 16:22 WBC 13.2 H (4.5-10.0) K/mm3 RBC 5.00 (4.2-5.4) M/mm3 Hgb 15.8 H (12.0-15.0) g/dL Hct 46.3 (37.0-47.0) % MCV 92.6 (80-100) fl MCH 31.6 (26-34) pg MCHC 34.1 (32-36) g/dl RDW 14.1 (11.5-14.5) % Plt Count 228 (150-375) k/mm3 MPV 10.6 H (7.4-10.4) fl Immature Gran % (Auto) 0.4 (0-0.5) % Neut % (Auto) 65.0 (45.5-73.1) % Lymph % (Auto) 26.6 (18.3-44.2) % Andrew % (Auto) 6.0 (2.6-8.5) % Eos % (Auto) 1.5 (0-4.4) % Baso % (Auto) 0.5 (0.2-1.2) % Lymph # (Auto) 3.52 H (0.9-3.2) K/mm3 Andrew # (Auto) 0.8 H (0.1-0.6) K/mm3 Eos # (Auto) 0.2 (0-0.3) K/mm3 Baso # (Auto) 0.1 (0.0-0.1) K/mm3 Abs Immat Gran (auto) 0.05 H (0.00-0.031) K/mm3 Absolute Neuts (auto) 8.6 H (1.3-6.7) K/mm3 Absolute Nucleated RBC 0.0 (0.0-0.012) K/mm3 Nucleated RBC % 0.0 (0.0-0.2) % D-Dimer 16.33 H (<0.48) ug/mL Sodium 142 (137-145) mmol/L Potassium 4.0 (3.4-5.0) mmol/L Chloride 111 H (98-107) mmol/L Carbon
--- NOTE | 2021-11-09 16:17 | ER_ITS ---
HPI - SOB/Dyspnea General Chief Complaint: Shortness of Breath/Dyspnea Stated Complaint: SOB Time Seen by Provider: 11/10/21 07:32 Related Data HPI: Patient is 81 years old white female came to the emergency room with gradual increase shortness of breath over the last few weeks. She denies any fever, chills, nausea, vomiting, chest pain. Home Medications Medication Instructions Recorded Confirmed cholecalciferol (vitamin D3) 100 4,000 unit PO DAILY 05/16/19 09/16/21 mcg (4,000 unit) capsule coenzyme Q10 100 mg capsule (Co 100 mg PO DAILY 05/16/19 09/16/21 Q-10) multivitamin,nt-xzqd-[id number] 1 tablet PO DAILY 05/16/19 09/16/21 (Complete Multivitamin) Allergies Allergy/AdvReac Type Severity Reaction Status Date / Time Penicillins Allergy Unknown Urticaria Verified 11/09/21 15:19 montelukast AdvReac Intermediate Hallucinati Verified 11/09/21 15:19 ng [facility] Past Medical History Medical History Abnormal fasting glucose Acute non-recurrent maxillary sinusitis Anxiety Benign paroxysmal positional vertigo due to bilateral vestibular disorder Candidiasis of genitalia in female Chronic depression (~06/2021) Controlled diabetes mellitus Coronary artery 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 cardiac catheterization 04/02/2019 with diffuse mild coronary artery disease with 25-40% lesion of the LAD, diagonal, circumflex, and obtuse marginal with normal right coronary artery. Diarrhea Fibromyalgia GERD (gastroesophageal reflux disease) Hirsutism Hypothyroidism, unspecified Irritable bowel syndrome with diarrhea Migraine without aura and without status migrainosus, not intractable Mixed hyperlipidemia Moderate persistent asthma without status asthmaticus without complication Nausea Neoplasm of skin of cheek Pancreatitis Surgical History Surgical History Hx of cholecystectomy Family History Family History Sibling Family history of condition Family history of Parkinson's disease Social History Social History Smoking status: Never smoker Alcohol intake: never Substance use: never Substance use type: does not use Gender identity (if verbalized by the patient): Female Spiritual care concerns: No Review of system: CONSTITUTIONAL: Denies fever, chills, or sweats. EYES: Denies visual changes, redness, or discharge. ENT: Denies rhinorrhea, congestion, sore throat, or otalgia. CARDIOVASCULAR: Denies chest pain, palpitations, or edema. RESPIRATORY: Gradual shortness of breath GASTROINTESTINAL: Denies abdominal pain, nausea, vomiting, or diarrhea. GENITOURINARY: Denies dysuria or hematuria. SKIN: Denies rash or itching. MUSCULOSKELETAL: Denies back pain, joint pain, or myalgia. NEUROLOGIC: Denies headache, numbness, or weakness. PSYCHIATRIC: Denies anxiety or depression. , Physical examination: General appearance: Well-developed, well-nourished Skin: Normal color Head: Normocephalic, nontraumatic Eyes: Clear conjunctiva ENT: Oropharynx normal, ears normal, nose normal Neck: Supple, nontender Chest and respiratory: Airway patent, no respiratory distress, no accessory muscle use Heart: Regular rate/rhythm Abdomen: Soft, nontender, no organomegaly, quiet bowel sounds Vascular: Normal peripheral pulses, normal capillary refill. Musculoskeletal: Normal range of motion, nontender back Neurologic: Alert and oriented ?3, [employer]ICAL ENGINEER is normal as tested, no gross
[2021-11-09 16:36] LABS: D Dimer 16.33 ug/mL (<0.48)
[2021-11-09 16:41] LABS: Alanine Aminotransferase 26 U/L (6-35); Alkaline Phosphatase 99 U/L (38-126); Anion Gap 10 mmol/L (8-16); Aspartate Amino Transferase 34 U/L (14-36); Bilirubin,Total 0.4 mg/dL (0.2-1.3); Blood Urea Nitrogen 14 mg/dL (7-17); Calcium 9.1 mg/dL (8.4-10.2); Carbon Dioxide 21 mmol/L (22-30); Chloride 111 mmol/L (98-107); Estimated CRCL calculation 58 ml/min; Estimated Glomerular Filt Rate > 60; Glucose 133 mg/dL (65-110); Sodium 142 mmol/L (137-145)
[2021-11-09] MEDS: ENOXAPARIN 100 MG/ML SYRINGE SUB-Q (17:06)
[2021-11-09 17:10] LABS: NT Pro B Type Natriuretic Pept 261 pg/mL (5-100); Troponin I 0.122 ng/mL (0.000-0.034)
[2021-11-09 17:37] LABS: Alveolar/Arterial O2 Gradient 57.1 mmHg; Base Excess ABG -4.4 mEq/l (+/-2.0); Fractional Inspired Oxygen 21 %; HCO3 ABG 17.4 mEq/l (22.0-26.0); Oxygen Saturation ABG 93.7 % (95.0-100.0); Oxyhemoglobin 92.4 % THb (90.0-100.0); PCO2 ABG 24.9 mmHg (35.0-45.0); PO2 ABG 62.8 mmHg (80.0-100.0); PO2 FiO2 Ratio Arterial Blood 2.99 %; Total Hemoglobin 15.4 g/dL (12.0-18.0); pH ABG 7.462 (7.350-7.450)
[2021-11-09 17:38] LABS: Device ROOM AIR; Modified Allen's Test Pass; Site Drawn RIGHT RADIAL
[2021-11-09 20:16] LABS: Troponin I 0.122 ng/mL (0.000-0.034)
--- NOTE | 2021-11-09 23:20 | PC.NURSE ---
Assumed care of pt at this time, report taken from Ashley LNIN
--- NOTE | 2021-11-09 23:46 | PC.NURSE ---
Pt states she has not urinated since 11am this morning. Per bladder scan, pt has approx 278 mL in bladder. EDP notified.
[2021-11-10] VITALS (89 sets, daily range): BP systolic 104–161; BP diastolic 54–98; PULSE 78–126; RESP 13–24; TEMP 36.8; O2SAT 85–97; BMI 39.5
--- NOTE | 2021-11-10 | ECHO_ITS ---
Patient Info Name: Damaris Wilhelm Age: 81 years : 1940 Gender: Female Ht: 64 in Wt: 231 lbs BSA: 2.23 m2 HR: 78 bpm BP: 117 / 70 mmHg Heart Rhythm: Sinus Rhythm Technical Quality: Fair Exam Date: 11/10/2021 12:55 PM Exam Location: [facility] Pulmonary Patient Status: Emergency Admit Date: 11/09/2021 Staff Ordering Physician: Derrick Jiménez MD Aircraft Magneto Mechanic: Viky Stuart RDCS Attending Provider: Derrick Jiménez MD Exam Type: CA echo dop color flow w con Study Info Indications - pulmonary embolism, rule out right ventricular str Complete two-dimensional, color flow and Doppler transthoracic echocardiogram is performed with contrast to opacify the left ventricle and to improve the deliniation of the left ventricle endocardial borders. Contrast/Agitated Saline Contrast/Ag. Saline: Definity Amount: 2.00 ml Administered By: Viky Stuart RDCS Existing IV Access: Yes IV Access Condition: patent with no signs of infiltration Summary 1. Left ventricular chamber dimension is normal. 2. Definity contrast administered improved wall motion interpretation. 3. Left ventricular systolic function is normal, estimated at 65-70%. 4. The left ventricular diastolic function is grade I diastolic dysfunction. 5. E/e' 7 is not elevated. 6. There is mild aortic valve sclerosis. 7. The mitral valve has moderately calcified annulus. 8. No pulmonary hypertension, estimated pulmonary arterial systolic pressure is 27 mmHg. Left Ventricle E/e' 7 is not elevated. Definity contrast administered improved wall motion interpretation. Left ventricular chamber dimension is normal. Left ventricular systolic function is normal, estimated at 65-70%. The left ventricular diastolic function is grade I diastolic dysfunction. Right Ventricle Right ventricular systolic function is normal and with normal TAPSE 1.9 cm. Right ventricular chamber dimension is normal. Left Atria Left atrial chamber dimension is normal. Right Atria Right atrial chamber dimension is normal. Aortic Valve The aortic valve is trileaflet. There is mild aortic valve sclerosis. There is no aortic valve stenosis. There is no aortic valve regurgitation. Pulmonic Valve There is no pulmonic regurgitation. Mitral Valve The mitral valve has moderately calcified annulus. There is no mitral valve stenosis. There is no mitral valve regurgitation. Tricuspid Valve There is no tricuspid valve regurgitation. No pulmonary hypertension, estimated pulmonary arterial systolic pressure is 27 mmHg. Pericardium/Pleural There is no pericardial effusion. Inferior Vena Cava Inferior vena cava is not well visualized. Aorta The aortic root size at the sinus of Valsalva is normal. Left Ventricular Outflow Tract Name Value Normal LVOT 2D LVOT Diameter 1.96 cm LVOT Doppler LVOT Peak Gradient 5 mmHg LVOT Mean Gradient 2 mmHg LVOT VTI 18.76 cm LVOT VTI/AV VTI Ratio 0.82
--- NOTE | 2021-11-10 00:55 | PC.NURSE ---
got her on bedside potty after several failed attempts on bedpans and finally was able to go both urine and bowel. did not desat either.
--- NOTE | 2021-11-10 04:06 | PC.NURSE ---
Received call from Iva at [facility]. No bed at this time.
[2021-11-10] MEDS: ENOXAPARIN 100 MG/ML SYRINGE SUB-Q ×2 (06:34→18:07)
[2021-11-10] MEDS: ONDANSETRON INJ 4 MG/2 ML VIAL IV PUSH (06:35)
--- NOTE | 2021-11-10 07:00 | ECG_ITS ---
Measurements Intervals [place] Rate: 82 P: 14 CO: 202 QRS: -26 QRSD: 93 T: 16 QT: 386 QTc: 453 Interpretive Statements SINUS RHYTHM WITH SINUS ARRHYTHMIA ATRIAL PREMATURE COMPLEX BORDERLINE AV CONDUCTION DELAY POOR R WAVE PROGRESSION, ANTERIOR LEADS CONSIDER INFERIOR INFARCT, AGE INDETERMINATE ABNORMAL ECG Electronically Signed On 11-10-2021 8:01:16 CDT by Pato Aguirre D.O.
--- NOTE | 2021-11-10 08:09 | PC.NURSE ---
Pt to ultrasound
[2021-11-10] MEDS: PERFLUTREN LIPID MICROSPHERES 1.5 ML VIAL DILUTED TO 10 ML TOTAL VOLUME IV PUSH (13:35)
--- NOTE | 2021-11-10 13:35 | IVDEFINITY ---
Prior to administration of IV Definity the patient was educated on the risks and benefits of the imaging enhancing agent including potential adverse side effects. The patient verbalized understanding. Allergies were verified. No exclusion criteria were identified and at least one of the following inclusion criteria were met: 1) physician request, 2) patient technically difficult to image (per the [place] [employer] Echocardi[employer] guidelines of two or more segments not discernable within the apical view), or 3) questionable left ventricular function. ?
--- NOTE | 2021-11-10 13:44 | PC.NURSE ---
Pt resting on stretcher. Still no bed availability at [facility].
--- NOTE | 2021-11-10 17:50 | ECG_ITS ---
Measurements Intervals [place] Rate: 122 P: [place]: 0 QRS: -44 QRSD: 76 T: 28 QT: 350 QTc: 500 Interpretive Statements ATRIAL FLUTTER/TACHYCARDIA WITH RAPID VENTRICULAR RESPONSE LEFT AXIS DEVIATION BORDERLINE R WAVE PROGRESSION, ANTERIOR LEADS ABNORMAL ECG Electronically Signed On 11-10-2021 20:16:54 CDT by Pato Aguirre D.O.
[2021-11-10] MEDS: ASPIRIN 81 MG CHEWABLE TABLET PO (18:07)
--- NOTE | 2021-11-10 18:21 | PC.NURSE ---
Dr. Jiménez at bedside for re-evaluation and to discuss treatment plan with patient.
--- NOTE | 2021-11-10 18:37 | PC.NURSE ---
Update given to [facility] transfer line. [facility] remains at capacity. Pt remains on wait list.
[2021-11-10 19:00] LABS: Troponin I 0.031 ng/mL (0.000-0.034)
--- NOTE | 2021-11-10 19:05 | ED.SOB ---
HPI - SOB/Dyspnea General Chief Complaint: Shortness of Breath/Dyspnea Stated Complaint: SOB Time Seen by Provider: 11/10/21 07:32 Source: patient History of Present Illness HPI Narrative: Patient came with shortness of breath for weeks Related Data Home Medications Medication Instructions Recorded Confirmed cholecalciferol (vitamin D3) 100 4,000 unit PO DAILY 05/16/19 09/16/21 mcg (4,000 unit) capsule coenzyme Q10 100 mg capsule (Co 100 mg PO DAILY 05/16/19 09/16/21 Q-10) multivitamin,up-uwrs-fzfogrzl 1 tablet PO DAILY 05/16/19 09/16/21 (Complete Multivitamin) Allergies Allergy/AdvReac Type Severity Reaction Status Date / Time Penicillins Allergy Unknown Urticaria Verified 11/09/21 15:19 montelukast AdvReac Intermediate Hallucinati Verified 11/09/21 15:19 ng Review of Systems Review of Systems: All systems reviewed & are unremarkable except as noted in HPI and below PMFSH Past Medical History Medical History Abnormal fasting glucose Acute non-recurrent maxillary sinusitis Anxiety Benign paroxysmal positional vertigo due to bilateral vestibular disorder Candidiasis of genitalia in female Chronic depression (~06/2021) Controlled diabetes mellitus Coronary artery 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 cardiac catheterization 04/02/2019 with diffuse mild coronary artery disease with 25-40% lesion of the LAD, diagonal, circumflex, and obtuse marginal with normal right coronary artery. Diarrhea Fibromyalgia GERD (gastroesophageal reflux disease) Hirsutism Hypothyroidism, unspecified Irritable bowel syndrome with diarrhea Migraine without aura and without status migrainosus, not intractable Mixed hyperlipidemia Moderate persistent asthma without status asthmaticus without complication Nausea Neoplasm of skin of cheek Pancreatitis Surgical History Surgical History Hx of cholecystectomy Family History Family History Sibling Family history of condition Family history of Parkinson's disease Social History Social History Smoking status: Never smoker Alcohol intake: never Substance use: never Substance use type: does not use Gender identity (if verbalized by the patient): Female Spiritual care concerns: No Exam Narrative: General appearance: Well-developed, well-nourished Skin: Normal color Head: Normocephalic, nontraumatic Eyes: Clear conjunctiva ENT: Oropharynx normal, ears normal, nose normal Neck: Supple, nontender Chest and respiratory: Airway patent, no respiratory distress, no accessory muscle use Heart: Regular rate/rhythm Abdomen: Soft, nontender, no organomegaly, quiet bowel sounds Vascular: Normal peripheral pulses, normal capillary refill. Musculoskeletal: Normal range of motion, nontender back Neurologic: Alert and oriented ?3, PHOTOLITHOGRAPHER is normal as tested, no gross motor deficit , Labored breathing Course Course Emergency Course: Patient has been in our emergency room for the last 24 hours, 2D echo showed no significant abnormality to require patient transfer to [facility], venous Doppler showed left lower leg deep vein thrombosis, repeated EKG showed A. fib with RVR which is new, elevated troponin is normal. Currently patient is on Lovenox, admit to med telemetry, discussed with cyber security analyst and nurse history hospitalist Consultations Consultation #1: DR PAUL ICU, admit to hospitalist Date: 11/10/21 Time: 19:07 Consultation #2: KANDIS Date: 11/10/21 Time: 19:09 Vital Sign
--- NOTE | 2021-11-10 19:21 | PC.NURSE ---
Assuming care of pt.
--- NOTE | 2021-11-10 20:02 | PM.IMHP ---
H&P: HPI History of Present Illness Date/Time: 11/10/21 20:02 Chief Complaint: Shortness of breath. Narrative: This is an 81-year-old female with past medical history significant for obesity, hypothyroidism, type 2 diabetes mellitus, gastroesophageal reflux disease, dyslipidemia, benign paroxysmal positional vertigo, coronary artery disease, fibromyalgia. Patient presents to the emergency room due to fatigue, shortness of breath, according to patient this has been going on for the last several weeks however lately in the last 2-3 days or so she foot just extremely weak unable to get up unable to walk short distances within the house without getting exhausted. Patient denies any fevers, rigors, chills, no hemoptysis, patient has had a cough productive of grayish color sputum, patient also complains of chest discomfort which initially attributed to her fibromyalgia but eventually after being persistently present thought otherwise, no swelling of the legs, no calves pain. Preliminary workup was significant for CT angiogram of the chest with extensive pulmonary embolism present, patient was also found to have atrial fibrillation with rapid ventricular response. Patient has been admitted for further evaluation management and treatment. Review of Systems Review of Systems: Fatigue, shortness of breath, generalized weakness, chest pain. Constitutional: Constitutional: Denies chills, Reports fatigue, Denies fever(s), Reports lethargy and Reports weakness Eyes: Eyes: Denies change in vision ENT: Denies dysphagia, Denies vertigo, Denies dizziness, Denies nasal congestion, Denies nasal discharge and Denies odynophagia Cardiovascular: Cardiovascular: Reports chest pain, Denies syncope, Denies pedal edema, Denies edema, Denies claudication, Denies leg edema, Denies lightheadedness, Denies radiating jaw, neck or arm pain, Reports dyspnea and Reports dyspnea on exertion Respiratory: Respiratory: Reports chest congestion, Reports cough and Reports other (Sputum production bassett color) Gastrointestinal: Gastrointestinal: Denies abdominal pain, Denies dyspepsia, Denies heartburn, Denies nausea and Denies vomiting Genitourinary: Genitourinary: Denies dysuria Musculoskeletal: Musculoskeletal: Denies arthralgias Integumentary/Breasts: Skin/Breast: Denies rash Neurologic: Denies focal weakness and Denies Sensory deficit (Neuro) Psychiatric: Psychiatric: Reports no additional psychiatric complaints and Reports as per HPI Endocrine: Endocrine: Denies cold intolerance, Denies flushing, Denies heat intolerance, Denies polyphagia, Denies polydipsia, Denies polyuria and Denies palpitations Hematologic/Lymphatic: Hematologic/Lymphatic: Reports no additional hematologic/lymphatic complaints and Reports as per HPI Allergic/Immunologic: Allergic/Immunologic: Reports no additional allergic/immunologic complaints and Reports as per HPI [facility] Past Medical History Medical History (Updated 11/11/21 @ 15:47 by Carolyn Saavedra, INSURANCE POLICY ISSUE CLERK) Abnormal fasting glucose Acute non-recurrent maxillary sinusitis Anxiety Benign paroxysmal positional vertigo due to bilateral vestibular disorder Candidiasis of genitalia in female Chronic depression (~06/2021) Controlled diabetes mellitus Coronary artery 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 cardiac catheterization 04/02/2019 with diffuse mild coronary artery disease with 25-40% lesion of the LAD, diagonal, circumflex, and obtuse marginal with normal right coronary artery. Deep vein thrombosis (DVT) of left lower extremity (11/09/21) Diarrhea Fibromyalgia GERD (gastroesophageal reflux disease) Hirsutism Hypothyroidism, unspecified Irritable bowel syndrome with diarrhea Migraine without aura and without status migrainosus, not intractable Mixed hyperlipidemia Moderate persistent asthma without status asthmaticus without complication Nausea Neoplasm of skin of cheek Pancreatitis Surgical History Surgical History (Reviewed
--- NOTE | 2021-11-10 21:27 | ADMGEN ---
This patient, Damaris Wilhelm, was admitted to 3 Med Surg Room 307-02. Patient/family oriented to hospital policies and general routines including ID bracelet, bed and alarms, visiting hours, pain management, procedures, bathroom and other care routines, personal items, smoking policy, room service/diet, and visiting hours. Information on how to activate the Rapid Response Team has been discussed. Patient/Family are encouraged to report perceived risks to care and to ask questions if they do not understand what they are told or what they should do.
[2021-11-11] VITALS (13 sets, daily range): BP systolic 114–125; BP diastolic 50–68; PULSE 71–100; RESP 16–22; TEMP 36.1–37.2; O2SAT 92–97
[2021-11-11] MEDS: ACETAMINOPHEN 325 MG TABLET 650 MG PO ×2 (03:03→14:36)
[2021-11-11] MEDS: LEVOTHYROXINE SODIUM 150 MCG TABLET PO (05:59)
[2021-11-11] MEDS: ENOXAPARIN 120 MG/0.8 ML SYRINGE 105 MG SUB-Q ×2 (06:03→17:04)
[2021-11-11 06:25] LABS: Anion Gap 7 mmol/L (8-16); Blood Urea Nitrogen 14 mg/dL (7-17); Calcium 8.3 mg/dL (8.4-10.2); Carbon Dioxide 23 mmol/L (22-30); Chloride 109 mmol/L (98-107); Estimated CRCL calculation 58 ml/min; Estimated Glomerular Filt Rate > 60; Glucose 127 mg/dL (65-110); Potassium 3.9 mmol/L (3.4-5.0); Sodium 139 mmol/L (137-145)
[2021-11-11] MEDS: ROSUVASTATIN 5 MG TABLET PO (08:06)
[2021-11-11] MEDS: THERAPEUTIC MULTIVITAMINS/MINERALS TAB (*BKC) 1 TABLET PO (08:06)
[2021-11-11] MEDS: PANTOPRAZOLE SOD SESQUIHYDRATE 20 MG TAB PO (08:06)
[2021-11-11] MEDS: METOPROLOL SUCCINATE EXT REL 25 MG TABCR PO (08:06)
[2021-11-11] MEDS: CHOLECALCIFEROL 1,000 UNITS TABLET 4000 UNITS PO (08:07)
[2021-11-11] MEDS: FLUTICASONE/SALMETEROL 115-21 MCG INHALER 1 PUFF 2 PUFF INHALATION ×2 (08:17→20:45)
[2021-11-11] MEDS: ASPIRIN 81 MG CHEWABLE TABLET PO (08:55)
--- NOTE | 2021-11-11 10:43 | PM.CNCAR ---
Assessment and Plan Assessment and plan (1) Deep vein thrombosis (DVT) of left lower extremity: Onset Date: 11/09/21 Code(s): I82.402 - Acute embolism and thrombosis of unspecified deep veins of left lower extremity Status: Acute Assessment and Plan: Enoxaparin for now and likely to start Xarelto. Clot is likely from inactivity (2) Pulmonary embolism: Onset Date: 11/09/21 Qualifiers: Acute cor pulmonale presence: unspecified Chronicity: acute Pulmonary embolism type: unspecified Qualified Code(s): I26.99 - Other pulmonary embolism without acute cor pulmonale Code(s): I26.99 - Other pulmonary embolism without acute cor pulmonale Status: Acute Assessment and Plan: Extensive bilateral pulmonary embolism. She is on enoxaparin 1 milligram/kilogram q.12 hours. Transition to direct oral anticoagulant. Given her obesity and clot burden, Xarelto would be a preferential choice. 15 mg p.o. b.i.d. times 21 days and transition 20 mg thereafter (3) Atrial tachycardia: Code(s): I47.1 - Supraventricular tachycardia Status: Acute Assessment and Plan: Patient is not having atrial fibrillation. She is having bursts of atrial tachycardia. Continue metoprolol (4) Elevated troponin: Code(s): R77.8 - Other specified abnormalities of plasma proteins Status: Acute Assessment and Plan: Related to right heart strain. Not related to ACS (5) Coronary artery 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: Qualifiers: Coronary Disease-Associated Artery/Lesion type: unspecified vessel or lesion type [place] vs. transplanted heart: [place] heart Qualified Code(s): I25.10 - Atherosclerotic heart disease of [place] coronary artery without angina pectoris Code(s): I25.10 - Atherosclerotic heart disease of [place] coronary artery without angina pectoris Status: Acute Assessment and Plan: Continue metoprolol, rosuvastatin. History of Present Illness History of Present Illness Consult date/time: 11/11/21 10:43 mine Requesting and physician: Dr. Méndez Consult reason: atrial fibrillation and Other (Elevated troponin, PE) Reason For Visit: Pulmonary embolism, new onset A. fib with RVR Narrative: History: Patient is a an 81-year-old female who was admitted because of shortness of breath and pulmonary embolism. She has had a 4 month history of worsening shortness of breath. Over the past month or so she has been very short of breath with mild activity and 3 days ago which show short of breath she was scared that she cannot get to the phone. She also had chest pain which is pleuritic in her left upper chest as well as under her left breast area. She has been more sedentary as of late. Patient denies any edema. She has had some paroxysmal nocturnal dyspnea also for the past couple months which is usually happening between the hours of 2 and 4:00 a.m.. She does feel some palpitations and runs of fast heartbeat [place] relatively brief lasting for a few seconds at a time. She denies any syncope, presyncope. She came to the hospital where workup was performed including an echocardiogram which did not show any RV strain. Troponins were minimally elevated and CT scan of chest showed extensive bilateral pulmonary embolism as well as residual left leg thrombus also. She has been started on anticoagulation. There was initial plan for transfer to [facility] but this was not done the patient is now being seen on the floor Review of Systems Review of Systems: All systems reviewed & are unremarkable except as noted in HPI and below Constitutional: Comments: No weight gain or weight loss Eyes: Comments: No blurry vision ENT: Comments: Hearing is normal. Cardiovascular: Comments: Chest pain as above Respiratory: Comments: Shortness of breath as above Gastrointestinal: Comments: No diarrhea Genitourinary: Comments: No urinary c
--- NOTE | 2021-11-11 11:04 | PM.IMPN ---
Progress Note: A&P Assessment and Plan (1) Pulmonary embolism: Onset Date: 11/09/21 Qualifiers: Acute cor pulmonale presence: unspecified Chronicity: acute Pulmonary embolism type: unspecified Qualified Code(s): I26.99 - Other pulmonary embolism without acute cor pulmonale Code(s): I26.99 - Other pulmonary embolism without acute cor pulmonale Status: Acute Assessment and Plan: CTA with bilateral PE and venous doppler with left sided [id number] DVT left popliteal, posterior tibial and peroneal veins. TTE without right heart strain noted. -Continue therapeutic lovenox 1 mg/kg. Plan to transition to oral DOAC pending care coordination evaluation for insurance coverage/cost. -Monitor for bleeding. -Troponin trended down. -Daily CBC & BMP (2) Atrial fibrillation with rapid ventricular response: Onset Date: 11/09/21 Code(s): I48.91 - Unspecified atrial fibrillation Status: Inactive Assessment and Plan: -Cardiology consulted. Unlikely afib, appears SR/ST with PACs. -Continue metoprolol XL 25 mg daily (3) Elevated troponin: Code(s): R77.8 - Other specified abnormalities of plasma proteins Status: Acute Assessment and Plan: Trended down. Likely secondary to demand ischemia from PEs, hypoxia and tachcyardia. (4) Generalized weakness: Code(s): R53.1 - Weakness Status: Acute Assessment and Plan: -secondary to above. (5) Fibromyalgia: Code(s): M79.7 - Fibromyalgia Status: Chronic Assessment and Plan: To be aware. (6) GERD (gastroesophageal reflux disease): Qualifiers: Esophagitis presence: without esophagitis Qualified Code(s): K21.9 - Gastro-esophageal reflux disease without esophagitis Code(s): K21.9 - Gastro-esophageal reflux disease without esophagitis Status: Chronic Assessment and Plan: Protonix PO daily (7) Coronary artery 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: Qualifiers: Coronary Disease-Associated Artery/Lesion type: unspecified vessel or lesion type [place] vs. transplanted heart: [place] heart Qualified Code(s): I25.10 - Atherosclerotic heart disease of [place] coronary artery without angina pectoris Code(s): I25.10 - Atherosclerotic heart disease of [place] coronary artery without angina pectoris Status: Chronic Assessment and Plan: continue aspirin, statin, and beta-gabriela. (8) Body mass index (BMI) 40.0-44.9, adult: Onset Date: 10/11/18 Code(s): Z68.41 - Body mass index [BMI] 40.0-44.9, adult Status: Chronic Assessment and Plan: Recommend lifestyle modifications. Time Spent With Patient Time with patient: 15 - 25 minutes Subjective Date/time seen: 11/11/21 11:04 Patient is a 81 yo female with medical history of asthma, CAD, diabetes, GERD, hypothyroidism and obesity. She presented to the ED for evaluation of progressively worsening dyspnea for several weeks. She was found to have bilateral PEs and multiple DVTs to LLE. EKG in the ED was concerning for afib with RVR. Patient is lying in bed. She c/o pleuritic pain to left chest area that is moderate and aching. She denies shortness of breath, but dose think her breathing is shallow. No recent travel or surgeries noted and she has had no prior history of PE/DVT, however she does report being more sedentary in the past 4 months. She sits for long hours at a time at her desk for work. She denies LLE pain or redness. No paresthesia. She attributed her shortness of breath to anxiety related to caring for her . Review of Systems Review of Systems: All systems reviewed & are unremarkable except as noted in HPI and below Psychiatric: Psychiatric: Reports anxiety Exam Narrative: General:?Well-developed, obese female lying in bed.? NAD. HEENT:??Normocephalic. Atraumatic. PERRL, EOMI.? Sclerae anicteric.? Oral mucosa pink & moist.? Neck:??Supple. No JVD.
[2021-11-11] MEDS: LIDOCAINE 5% PATCH 1 PATCH TRANSDERM (17:05)
[2021-11-12] VITALS (8 sets, daily range): BP systolic 121–127; BP diastolic 56–65; PULSE 79–93; RESP 16–20; TEMP 36–36.5; O2SAT 94–96
[2021-11-12 06:17] LABS: Hematocrit 38.8 % (37.0-47.0); Hemoglobin 12.6 g/dL (12.0-15.0); Mean Corpuscular HGB Conc 32.5 g/dl (32-36); Mean Corpuscular Hemoglobin 30.8 pg (26-34); Mean Corpuscular Volume 94.9 fl (80-100); Mean Platelet Volume 10.8 fl (7.4-10.4); Platelet Count Result 196 k/mm3 (150-375); Red Blood Count 4.09 M/mm3 (4.2-5.4); Red Cell Distribution Width 14.2 % (11.5-14.5); White Blood Count 11.4 K/mm3 (4.5-10.0)
[2021-11-12] MEDS: LEVOTHYROXINE SODIUM 150 MCG TABLET PO (06:18)
[2021-11-12] MEDS: ENOXAPARIN 120 MG/0.8 ML SYRINGE 105 MG SUB-Q (06:18)
[2021-11-12 06:34] LABS: Anion Gap 7 mmol/L (8-16); Blood Urea Nitrogen 11 mg/dL (7-17); Calcium 8.4 mg/dL (8.4-10.2); Carbon Dioxide 24 mmol/L (22-30); Chloride 107 mmol/L (98-107); Estimated CRCL calculation 52 ml/min; Estimated Glomerular Filt Rate 60; Glucose 127 mg/dL (65-110); Potassium 3.7 mmol/L (3.4-5.0); Sodium 138 mmol/L (137-145)
[2021-11-12] MEDS: FLUTICASONE/SALMETEROL 115-21 MCG INHALER 1 PUFF 2 PUFF INHALATION (08:11)
[2021-11-12] MEDS: ROSUVASTATIN 5 MG TABLET PO (09:33)
[2021-11-12] MEDS: METOPROLOL SUCCINATE EXT REL 25 MG TABCR PO (09:33)
[2021-11-12] MEDS: ASPIRIN 81 MG CHEWABLE TABLET PO (09:33)
[2021-11-12] MEDS: PANTOPRAZOLE SOD SESQUIHYDRATE 20 MG TAB PO (09:33)
[2021-11-12] MEDS: THERAPEUTIC MULTIVITAMINS/MINERALS TAB (*BKC) 1 TABLET PO (09:34)
[2021-11-12] MEDS: LIDOCAINE 5% PATCH 1 PATCH TRANSDERM (09:34)
[2021-11-12] MEDS: CHOLECALCIFEROL 1,000 UNITS TABLET 4000 UNITS PO (09:34)
[2021-11-12 11:10] LABS: Hematocrit 41.9 % (37.0-47.0); Hemoglobin 13.5 g/dL (12.0-15.0)
--- NOTE | 2021-11-12 12:02 | PM.DS ---
DS: Admitting Diagnosis Discharge Date 11/12/2021 1221 Admitting Diagnosis Pulmonary embolism DVT, left leg Possible afib RVR Elevated troponin DS: Discharge Diagnosis Discharge Diagnosis (1) Pulmonary embolism: Onset Date: 11/09/21 Qualifiers: Acute cor pulmonale presence: unspecified Chronicity: acute Pulmonary embolism type: unspecified Qualified Code(s): I26.99 - Other pulmonary embolism without acute cor pulmonale Code(s): I26.99 - Other pulmonary embolism without acute cor pulmonale Status: Acute (2) Deep vein thrombosis (DVT) of left lower extremity: Onset Date: 11/09/21 Code(s): I82.402 - Acute embolism and thrombosis of unspecified deep veins of left lower extremity Status: Acute (3) Atrial tachycardia: Onset Date: 11/09/21 Code(s): I47.1 - Supraventricular tachycardia Status: Acute (4) Elevated troponin: Code(s): R77.8 - Other specified abnormalities of plasma proteins Status: Acute (5) Controlled diabetes mellitus: Code(s): E11.9 - Type 2 diabetes mellitus without complications Status: Chronic (6) Chronic depression: Onset Date: Code(s): F32.A - Depression, unspecified Status: Chronic (7) Generalized weakness: Code(s): R53.1 - Weakness Status: Chronic (8) GERD (gastroesophageal reflux disease): Qualifiers: Esophagitis presence: without esophagitis Qualified Code(s): K21.9 - Gastro-esophageal reflux disease without esophagitis Code(s): K21.9 - Gastro-esophageal reflux disease without esophagitis Status: Suspected (9) Coronary artery 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: Qualifiers: Coronary Disease-Associated Artery/Lesion type: unspecified vessel or lesion type [place] vs. transplanted heart: [place] heart Qualified Code(s): I25.10 - Atherosclerotic heart disease of [place] coronary artery without angina pectoris Code(s): I25.10 - Atherosclerotic heart disease of [place] coronary artery without angina pectoris Status: Chronic (10) Body mass index (BMI) 40.0-44.9, adult: Onset Date: 10/11/18 Code(s): Z68.41 - Body mass index [BMI] 40.0-44.9, adult Status: Chronic DS: Summary Hospital Course Reason for hospitalization: Pulmonary embolism Hospital Course: Damaris Wilhelm is a 81-year-old female with past medical history significant for obesity, hypothyroidism, type 2 diabetes mellitus, gastroesophageal reflux disease, dyslipidemia, benign paroxysmal positional vertigo, coronary artery disease, and fibromyalgia.? She presented to the emergency room for evaluation of fatigue and shortness of breath that has been going on for the last several weeks and worsened 2-3 days prior to admission. She reported extremely weak foot and unable to get up or walk short distances within the house without getting exhausted.? Patient denied any fevers, rigors, chills, no hemoptysis, patient has had a cough, productive with grayish color sputum. She also complained of chest discomfort, which initially she attributed to her fibromyalgia but decided otherwise when it persisted. No swelling of the legs or calf pain.? Preliminary workup was significant for CT angiogram of the chest with extensive pulmonary embolism present, patient was also found to have atrial fibrillation with rapid ventricular response.? Patient has been admitted to the medical floor with telemetry for further evaluation management and treatment. Cardiology was consulted for evaluation of afib and she was thought to have bursts of atrial tachycardia, but otherwise was in sinus rhythm. She was continued on Toprol XL 25 mg daily and HR was stable 70-90s at discharge She was continued on therapeutic lovenox 1 mg/kg BID. Echocardiogram did not demonstrate right heart strain and she was hemodynamically stable, requiring only 2 liters of O2 upon admission. Her troponin was mildly eleva
[2021-11-12] MEDS: RIVAROXABAN 15 MG TABLET PO (17:24)
== END 2021-11-12 17:30 | disposition home or self-care (01) | DRG 176 ==
LOC: ANHED 11-10 19:07 → ANH3MEDSUR 11-10 20:28
PROVIDERS: Admitting Provider Internal Medicine; Emergency Provider Emergency Medicine; PCP Family Medicine; Visit Provider Nurse Practitioner Family
DX: I26.99 Other pulmonary embolism without acute cor pulmonale (principal); I82.432 Acute embolism and thrombosis of left popliteal vein; I82.442 Acute embolism and thrombosis of left tibial vein; I82.452 Acute embolism and thrombosis of left peroneal vein; I24.8 Other forms of acute ischemic heart disease; Z68.41 Body mass index [BMI] 40.0-44.9, adult; I47.1 Supraventricular tachycardia; I48.91 Unspecified atrial fibrillation; R77.8 Other specified abnormalities of plasma proteins; R53.1 Weakness; M79.7 Fibromyalgia; K21.9 Gastro-esophageal reflux disease without esophagitis; I25.10 Atherosclerotic heart disease of native coronary artery without angina pectoris; E78.2 Mixed hyperlipidemia; E03.9 Hypothyroidism, unspecified; J45.40 Moderate persistent asthma, uncomplicated; F32.A Depression, unspecified; E66.9 Obesity, unspecified; E11.9 Type 2 diabetes mellitus without complications; Z82.49 Family history of ischemic heart disease and other diseases of the circulatory system; Z79.899 Other long term (current) drug therapy
CPT/HCPCS: 36415; 36600; 71046; 71275; 80048; 80053; 82805; 83880; 84484; 85014; 85018; 85025; 85027; 85380; 93005; 93970; 94640; 96372; 96374; 96375; 97161; 97165; 99285; A9270; C8929; G0378; J1650; J2405; Q9957; Q9967

== ENCOUNTER 2022-02-17 17:52 | Observation (INO) | payer MEDICARE, SELFPAY ==
[2022-02-17] VITALS (8 sets, daily range): BP systolic 136–156; BP diastolic 51–98; PULSE 79–100; RESP 16–23; TEMP 36.6–36.8; O2SAT 96–99; BMI 39.0
--- NOTE | ~2022-02-17 | XR_ITS ---
EXAMINATION: XR chest 1V portable Exam Date/Time: 02/17/2022 18:18 CDT HISTORY: dyspnea on exertion Comparison: 11/09/2021. RESULT: Lines, tubes, and devices: None. Lungs and pleura: Streaky bibasilar opacities, likely representing atelectasis. Senescent change. Cardiomediastinal silhouette: Stable. Other: No acute osseous or upper abdominal finding. IMPRESSION: No acute cardiopulmonary process. Reviewed, dictated and finalized at location K.
--- NOTE | ~2022-02-17 | CT_ITS ---
EXAMINATION: CTA chest PE protocol DATE: 02/17/2022 18:51 INDICATION: PE TECHNIQUE: Computed tomography angiography (CTA) of the chest was performed with 100 mL Omnipaque-350 intravenous contrast timed to evaluate the pulmonary arteries. Coronal maximum intensity projection 3D-reconstructions were created by the technologist. The dose-length product (DLP) was 632.07 mGy-cm. Automated exposure control and iterative reconstruction technique were employed. COMPARISON: 11/09/2021. FINDINGS: Lung parenchyma and airways: Mild senescent change. Mild dependent atelectasis.. Pleura: Unremarkable. Thoracic inlet, axillae and chest wall: Unremarkable. Thoracic aorta: Ectasia and arch calcifications. Mediastinum: Dilated central pulmonary arteries as can be seen with pulmonary arterial hypertension. Heart and pericardium: Normal. Coronary artery calcifications: Mild. Upper abdomen: No significant finding. Bones: No acute osseous finding. Pulmonary arteries: Study quality: Adequate. No pulmonary emboli detected. IMPRESSION: No CT evidence of acute pulmonary embolus. Reviewed, dictated and finalized at location K.
--- NOTE | ~2022-02-17 | NM_ITS ---
EXAMINATION: NM jose juan stress w perfusion DATE: 02/18/2022 14:09 INDICATION: Chest pain TECHNIQUE: Rest images were obtained following intravenous administration of 9.4 mCi Tc99m tetrofosmi n (Myoview). The patient was infused intravenously with Lexiscan (Regadenoson). Then, 32 mCi Tc99m te trofosmin (Myoview) was administered intravenously, and stress images were obtained. Data was reconst ructed into short axis and horizontal and vertical long axis SPECT images. Gated SPECT images were al so obtained. COMPARISON: None. FINDINGS: There is no definite reversible or fixed perfusion abnormality to suggest ischemia or infar ction. There is normal left ventricular chamber size, wall motion and ejection fraction. Left ventr icular ejection fraction measures 69%. IMPRESSION: 1. Normal myocardial perfusion at rest and during stress. 2. Left ventricular ejection fraction measuring 69%. Reviewed, dictated and finalized at location A.
--- NOTE | 2022-02-17 17:53 | ECG_ITS ---
Measurements Intervals [place] Rate: 96 P: 41 DC: 203 QRS: -18 QRSD: 85 T: 19 QT: 328 QTc: 416 Interpretive Statements SINUS RHYTHM WITH OCCASIONAL SUPRAVENTRICULAR PREMATURE COMPLEXES COMPARED TO ECG 11/10/2021 18:16:03 SINUS RHYTHM HAS BEEN RESTORED Electronically Signed On 02-17-2022 20:03:56 CDT by Ashley Kee M.D.
--- NOTE | 2022-02-17 18:09 | ED.CHESTPAIN ---
HPI - Chest Pain General Chief Complaint: Chest Pain Stated Complaint: CP Time Seen by Provider: 02/17/22 17:55 History of Present Illness HPI narrative: Pt presents with chest pain and sob with minimal exertion today. This has been progressively worsening over the last week. Pt went to see PCP today and got very SOB and diaphoretic going to car and then to his office and then even getting from chair to exam table. Pt states the symptoms resolve after 15-20 minutes if she rests. Pt has no CP or SOB now. Pt had PE in October and is on Xeralto. Pt had a negative cardiac cath in 2018. Related Data Home Medications Medication Instructions Recorded Confirmed cholecalciferol (vitamin D3) 100 4,000 unit PO DAILY 05/16/19 02/17/22 mcg (4,000 unit) capsule coenzyme Q10 100 mg capsule (Co 100 mg PO DAILY 05/16/19 02/17/22 Q-10) multivitamin,[id number]-[id number]-mpohrauj 1 tablet PO DAILY 05/16/19 02/17/22 (Complete Multivitamin tablet) Allergies Allergy/AdvReac Type Severity Reaction Status Date / Time Penicillins Allergy Unknown Urticaria Verified 02/17/22 17:54 montelukast AdvReac Intermediate Hallucinati Verified 02/17/22 17:54 ng Review of Systems Review of Systems: All systems reviewed & are unremarkable except as noted in HPI and below PMFSH Past Medical History Medical History Abnormal fasting glucose Acute non-recurrent maxillary sinusitis Anxiety Benign paroxysmal positional vertigo due to bilateral vestibular disorder BMI 38.0-38.9,adult Candidiasis of genitalia in female Chronic depression (~06/2021) Controlled diabetes mellitus Coronary artery 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 cardiac catheterization 04/02/2019 with diffuse mild coronary artery disease with 25-40% lesion of the LAD, diagonal, circumflex, and obtuse marginal with normal right coronary artery. Deep vein thrombosis (DVT) of left lower extremity (11/09/21) Diarrhea Fibromyalgia GERD (gastroesophageal reflux disease) Hirsutism Hypothyroidism, unspecified Irritable bowel syndrome with diarrhea Migraine without aura and without status migrainosus, not intractable Mixed hyperlipidemia Moderate persistent asthma without status asthmaticus without complication Nausea Neoplasm of skin of cheek Obesity (BMI 35.0-39.9 without comorbidity) Pancreatitis Surgical History Surgical History Hx of cholecystectomy Family History Family History Sibling Family history of condition Family history of Parkinson's disease Father CHF (congestive heart failure) Social History Social History Smoking status: Never smoker Alcohol intake: never Substance use: never Substance use type: does not use Gender identity (if verbalized by the patient): Female Spiritual care concerns: No Exam Const: General: healthy appearing Nutritional Appearance: well nourished and obese Orientation/consciousness: patient oriented x3 Limitations: no limitations Chest: Chest palpation & inspection: normal inspection of the chest Resp: Effort & Inspection: normal respiratory effort Auscultation: clear to auscultation bilaterally Cardio: Rate: regular rate Rhythm: regular rhythm GI: GI Palp: Yes Soft to palpation Auscultation: normal bowel sounds Skin: General skin exam: normal color Rashes: no rashes Wounds: no wounds Neuro: General: patient oriented x3 and no focal motor deficits Cranial nerves: Yes Nystagmus not present Speech: normal speech Extrem: General: normal to inspection and no clubbing, cyanosis or edema Other: no calf tenderness Psych: Mental Status: mental status grossly normal Affect: normal affect Attitude: cooperative Course Vital Signs Vital signs: Vital Signs Temperature 98.2 F 02/17/22 17:59 Pulse Rate 1
[2022-02-17 18:21] LABS: Basophils Absolute Auto 0.1 K/mm3 (0.0-0.1); Basophils Percent Auto 0.5 % (0.2-1.2); Eosinophils Absolute Auto 0.1 K/mm3 (0-0.3); Eosinophils Percent Auto 1.2 % (0-4.4); Hematocrit 41.5 % (37.0-47.0); Hemoglobin 13.6 g/dL (12.0-15.0); Immature Granulocyte Absolute 0.03 K/mm3 (0.00-0.031); Immature Granulocyte Percent A 0.3 % (0-0.5); Lymphocytes Absolute Auto 2.57 K/mm3 (0.9-3.2); Lymphocytes Percent Auto 21.8 % (18.3-44.2); Mean Corpuscular HGB Conc 32.8 g/dl (32-36); Mean Corpuscular Hemoglobin 30.2 pg (26-34); Mean Corpuscular Volume 92.2 fl (80-100); Mean Platelet Volume 10.3 fl (7.4-10.4); Monocytes Absolute Auto 0.8 K/mm3 (0.1-0.6); Neutrophils Absolute Auto 8.2 K/mm3 (1.3-6.7); Neutrophils Percent Auto 69.2 % (45.5-73.1); Platelet Count Result 311 k/mm3 (150-375); Red Cell Distribution Width 14.7 % (11.5-14.5); White Blood Count 11.8 K/mm3 (4.5-10.0)
[2022-02-17 18:34] LABS: Alanine Aminotransferase 24 U/L (6-35); Albumin Level 3.8 g/dL (3.5-5.1); Alkaline Phosphatase 84 U/L (38-126); Anion Gap 15 mmol/L (8-16); Aspartate Amino Transferase 26 U/L (14-36); Bilirubin,Total 0.2 mg/dL (0.2-1.3); Blood Urea Nitrogen 19 mg/dL (7-17); Calcium 9.5 mg/dL (8.4-10.2); Carbon Dioxide 20 mmol/L (22-30); Chloride 105 mmol/L (98-107); Estimated CRCL calculation 51 ml/min; Estimated Glomerular Filt Rate 60; Glucose 127 mg/dL (65-110); Lipase 115 U/L (23-300); Potassium 3.8 mmol/L (3.4-5.0); Sodium 140 mmol/L (137-145)
[2022-02-17 18:42] LABS: INR 1.6; Partial Thromboplastin Time 32.5 SECONDS (22.3-36.8); Prothrombin Time 18.3 Seconds (11.1-14.7)
[2022-02-17 18:44] LABS: NT Pro B Type Natriuretic Pept 225 pg/mL (5-100); Troponin I < 0.012 ng/mL (0.000-0.034)
--- NOTE | 2022-02-17 19:41 | PM.IMHP ---
H&P: [facility] History of Present Illness Date/Time: 02/17/22 19:41 Chief Complaint: Shortness of breath. Narrative: This is an 81-year-old female with past medical history significant for obesity, hypothyroidism, type 2 diabetes mellitus, gastroesophageal reflux disease, dyslipidemia, benign paroxysmal positional vertigo, coronary artery disease, fibromyalgia. Patient presents to the emergency room with progressively worsening dyspnea on exertion, relieved with laying flat and rest. She states that she is having sharp pain in her back, that radiates into her armpit and to her chest on the left side. It is reproducible with palpation. She admits to her falling a few weeks ago and she grabbed him to catch him and feels like she pulled a muscle at that time. She denies palpitations, fevers, chills, URI symptoms. She does admit to significant anxiety and did chart all of her symptoms on a spreadsheet over the last 3 months. Her difficulty breathing did not correlate with when she felt more anxious. Of note, patient was diagnosed with PE as well as DVT in October 2021 and has been on Xarelto since then. In the ER, CTA was redone of her chest, negative for any blood clots or pathology. ECG and troponin were both negative for acute cardiac issues. She was admitted to trend troponins, monitor telemetry and check a stress test. Review of Systems Review of Systems: 12 point review of systems was assessed and was negative except as noted in the HPI [facility] Past Medical History Medical History Abnormal fasting glucose Acute non-recurrent maxillary sinusitis Anxiety Benign paroxysmal positional vertigo due to bilateral vestibular disorder BMI 38.0-38.9,adult Candidiasis of genitalia in female Chronic depression (~06/2021) Controlled diabetes mellitus Coronary artery 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 cardiac catheterization 04/02/2019 with diffuse mild coronary artery disease with 25-40% lesion of the LAD, diagonal, circumflex, and obtuse marginal with normal right coronary artery. Deep vein thrombosis (DVT) of left lower extremity (11/09/21) Diarrhea Fibromyalgia GERD (gastroesophageal reflux disease) Hirsutism Hypothyroidism, unspecified Irritable bowel syndrome with diarrhea Migraine without aura and without status migrainosus, not intractable Mixed hyperlipidemia Moderate persistent asthma without status asthmaticus without complication Nausea Neoplasm of skin of cheek Obesity (BMI 35.0-39.9 without comorbidity) Pancreatitis Surgical History Surgical History Hx of cholecystectomy Family History Family History Sibling Family history of condition Family history of Parkinson's disease Father CHF (congestive heart failure) Social History Social History Smoking status: Never smoker Alcohol intake: never Substance use: never Substance use type: does not use Gender identity (if verbalized by the patient): Female Spiritual care concerns: No Meds Home Medications and Allergies Home Medications Medication Instructions Recorded Confirmed Type cholecalciferol (vitamin D3) 100 4,000 unit PO DAILY 05/16/19 02/17/22 History mcg (4,000 unit) capsule multivitamin,[id number]-bpee-[id number] 1 tablet PO DAILY 05/16/19 02/17/22 History (Complete Multivitamin tablet) spironolactone 25 mg tablet 25 mg PO BID #60 tabs 04/27/21 02/17/22 Rx metoprolol succinate 25 mg 25 mg PO DAILY #30 tabs 07/03/21 02/17/22 Rx tablet,extended release 24 hr diazepam 2 mg tablet 2 mg PO BID PRN anxiety #60 tabs 09/16/21 02/17/22 Rx metformin 500 mg tablet,extended 500 mg PO BID #60 tabs 09/16/21 02/17/22 Rx release 24 hr levothyroxine 150 mcg tablet 150 mcg PO DAILY #90 tabs 10/21/21 02/17/22 Rx (Synthroid) albuterol sul
[2022-02-17] MEDS: ALBUTEROL SULFATE NEB 2.5 MG/3 ML INH INHALATION (19:46)
[2022-02-17 20:11] LABS: Glucose Point of Care 105 mg/dl (65-105)
[2022-02-17 20:13] LABS: D Dimer 0.27 ug/mL (<0.48)
--- NOTE | 2022-02-17 20:48 | ADMGEN ---
This patient, Damaris Wilhelm, was admitted to Medical Room 246-01. Patient/family oriented to hospital policies and general routines including ID bracelet, bed and alarms, visiting hours, pain management, procedures, bathroom and other care routines, personal items, smoking policy, room service/diet, and visiting hours. Information on how to activate the Rapid Response Team has been discussed. Patient/Family are encouraged to report perceived risks to care and to ask questions if they do not understand what they are told or what they should do.
[2022-02-17 21:45] LABS: Hemoglobin A1C 6.2 % (<5.7)
[2022-02-17 21:48] LABS: Glucose Point of Care 166 mg/dl (65-105)
[2022-02-17 22:23] LABS: Troponin I < 0.012 ng/mL (0.000-0.034)
[2022-02-17] MEDS: predniSONE 20 MG TABLET 40 MG PO (23:01)
[2022-02-18] VITALS (12 sets, daily range): BP systolic 136–147; BP diastolic 72–79; PULSE 77–98; RESP 16–20; TEMP 36.2–36.6; O2SAT 94–97
[2022-02-18 00:55] LABS: Troponin I < 0.012 ng/mL (0.000-0.034)
--- NOTE | 2022-02-18 04:12 | PC.NURSE ---
Pt admitted to unit for observation. Pt resting in room. Pt up with NICK dorantes. Pt states she believes now that she was experiencing asthma earlier in the day. Will continue to monitor pt.
[2022-02-18] MEDS: LEVOTHYROXINE SODIUM 150 MCG TABLET PO (05:32)
[2022-02-18 07:05] LABS: Thyroid Stimulating Hormone 0.046 uIU/mL (0.465-4.680)
[2022-02-18 08:05] LABS: Glucose Point of Care 160 mg/dl (65-105)
[2022-02-18] MEDS: FLUTICASONE/SALMETEROL 115-21 MCG INHALER 1 PUFF 2 PUFF INHALATION ×2 (09:30→20:47)
--- NOTE | 2022-02-18 09:31 | EST_ITS ---
Patient Info Name: Damaris Wilhelm Age: 81 years : 1940 Gender: Female Ht: 64 in Wt: 222 lbs BSA: 2.18 m2 Exam Date: 02/18/2022 12:43 PM Exam Location: [facility] Stress Patient Status: Inpatient Admit Date: 02/17/2022 Staff Ordering Physician: Noel Coy MD Attending Provider: Kiersten Wolfe DO Exercise Technologist: Portia Adams RDCS Nurse: LEILANI KEITH NP Exam Type: CA stress josej uan w NM Study Info Indications - SOB WITH EXERTION R06.02 - Shortness of breath A regadenoson stress test was performed. Summary 1. No abnormal ST-T wave changes with lexiscan. 2. Nuclear test results to follow. Protocol: Lexiscan Stress ECG Details Stage: REST Duration (min): 8 min : 3 sec HR (bpm): 90 SBP (mmHg): 147 DBP (mmHg): 77 Stage: REST Duration (min): 9 min : 5 sec HR (bpm): 86 SBP (mmHg): 147 DBP (mmHg): 77 Stage: STAGE 1 Duration (min): 1 min : 0 sec HR (bpm): 103 SBP (mmHg): 157 DBP (mmHg): 63 Stage: RECOVERY Duration (min): 1 min : 0 sec HR (bpm): 102 SBP (mmHg): 133 DBP (mmHg): 58 Stage: RECOVERY Duration (min): 2 min : 0 sec HR (bpm): 107 SBP (mmHg): 133 DBP (mmHg): 58 Stage: RECOVERY Duration (min): 3 min : 0 sec HR (bpm): 109 SBP (mmHg): 148 DBP (mmHg): 58 Stage: RECOVERY Duration (min): 4 min : 0 sec HR (bpm): 112 SBP (mmHg): 148 DBP (mmHg): 58 Stage: RECOVERY Duration (min): 5 min : 0 sec HR (bpm): 109 SBP (mmHg): 148 DBP (mmHg): 58 Stage: RECOVERY Duration (min): 6 min : 0 sec HR (bpm): 104 SBP (mmHg): 173 DBP (mmHg): 88 Stage: RECOVERY Duration (min): 7 min : 0 sec HR (bpm): 100 SBP (mmHg): 162 DBP (mmHg): 81 Stage: RECOVERY Duration (min): 7 min : 1 sec HR (bpm): 100 SBP (mmHg): 162 DBP (mmHg): 81 Rest HR: 86 bpm Peak HR: 113 bpm Rest Sys BP: 147 mmHg Peak Sys BP: 173 mmHg Max Pred HR: 140 bpm % Max Pred HR: 81 % Target HR: 119 bpm Max RPP: 19,549 bpm*mmHg Total Time: 1 min : 0 sec Rest Patterson BP: 77 mmHg Peak Patterson BP: 88 mmHg Total Dose: 0.4 mg Resting ECG Normal sinus rhythm - normal ECG. Stress ECG No abnormal ST/T wave changes with test. Arrhythmias Occasional PACs. Report Signatures
--- NOTE | 2022-02-18 11:33 | PM.IMPN ---
Progress Note: A&P Assessment and Plan (1) Chest pain: Code(s): R07.9 - Chest pain, unspecified Status: Acute Assessment and Plan: Suspect costochondritis, prednisone burst, heating pad Rule out underlying cardiac etiology, monitor telemetry, trend troponins, check stress test (2) SCHWARZ (dyspnea on exertion): Code(s): R06.09 - Other forms of dyspnea Status: Acute Assessment and Plan: Suspect this is 2/2 msk pain from intercostal spasm (3) BMI 38.0-38.9,adult: Code(s): Z68.38 - Body mass index [BMI] 38.0-38.9, adult Status: Acute (4) Pulmonary embolism: Onset Date: 11/09/21 Qualifiers: Acute cor pulmonale presence: unspecified Chronicity: acute Pulmonary embolism type: unspecified Qualified Code(s): I26.99 - Other pulmonary embolism without acute cor pulmonale Code(s): I26.99 - Other pulmonary embolism without acute cor pulmonale Status: Acute Assessment and Plan: Continue Xarelto for now, can likely discontinue in the next few months if no recurrences of blood clots (5) Deep vein thrombosis (DVT) of left lower extremity: Onset Date: 11/09/21 Code(s): I82.402 - Acute embolism and thrombosis of unspecified deep veins of left lower extremity Status: Acute Assessment and Plan: As above for PE (6) Controlled diabetes mellitus: Code(s): E11.9 - Type 2 diabetes mellitus without complications Status: Chronic Assessment and Plan: Check A1c, monitor Accu-Cheks, add sliding scale insulin (7) Anxiety: Code(s): F41.9 - Anxiety disorder, unspecified Status: Acute (8) Hypothyroidism, unspecified: Qualifiers: Hypothyroidism type: unspecified Qualified Code(s): E03.9 - Hypothyroidism, unspecified Code(s): E03.9 - Hypothyroidism, unspecified Status: Acute Assessment and Plan: Check TSH (9) Fibromyalgia: Code(s): M79.7 - Fibromyalgia Status: Chronic (10) GERD (gastroesophageal reflux disease): Qualifiers: Esophagitis presence: without esophagitis Qualified Code(s): K21.9 - Gastro-esophageal reflux disease without esophagitis Code(s): K21.9 - Gastro-esophageal reflux disease without esophagitis Status: Suspected (11) Coronary artery 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: Qualifiers: Coronary Disease-Associated Artery/Lesion type: unspecified vessel or lesion type [place] vs. transplanted heart: [place] heart Qualified Code(s): I25.10 - Atherosclerotic heart disease of [place] coronary artery without angina pectoris Code(s): I25.10 - Atherosclerotic heart disease of [place] coronary artery without angina pectoris Status: Chronic (12) Irritable bowel syndrome with diarrhea: Code(s): K58.0 - Irritable bowel syndrome with diarrhea Status: Acute (13) Mixed hyperlipidemia: Code(s): E78.2 - Mixed hyperlipidemia Status: Acute Plan DVT prophylaxis with Xarelto GI prophylaxis not indicated Code status full code Subjective Date/time seen: 02/18/22 11:33 no complaints Exam Narrative: General: No acute distress, alert and oriented per baseline HEENT: Atraumatic, normocephalic, mucous membranes moist CV: Regular rate and rhythm, S1, S2 Lungs: Clear to auscultation bilaterally, no rales or crackles noted, no wheezes, good air entry Msk: TTP over left rib 4-5, lateral ribs 4-5 on the left, and in thoracic area adjacent to ribs 4-5, ribs noted to be stuck in exhalation/depressed position with significant pain Abdomen: Soft, nontender, nondistended Extremities: Normal to inspection Skin: No rashes noted, no lesions or wounds seen Psych: Euthymic, normal affect Objective Data Vital Signs Vital Signs: Vital Signs - 24 hr 02/17/22 17:59 02/17/22 17:59 02/17/22 18:01 Temperature 98.2 F 98.2 F Pulse Rate 100 92 Respiratory Rate 16 23 H Blood Pressure 151/86 H 151/86
--- NOTE | 2022-02-18 11:55 | PC.NURSE ---
To Nuclear Medicine via wheelchair.
--- NOTE | 2022-02-18 13:35 | PC.NURSE ---
Returned from Nuclear Med via wheelchair.
[2022-02-18] MEDS: ACETAMINOPHEN 325 MG TABLET 650 MG PO (14:43)
[2022-02-18 14:47] LABS: Glucose Point of Care 175 mg/dl (65-105)
[2022-02-18] MEDS: SPIRONOLACTONE 25 MG TABLET PO (16:32)
[2022-02-18] MEDS: predniSONE 40 MG, predniSONE 10 MG 50 MG PO (16:32)
[2022-02-18] MEDS: METOPROLOL SUCCINATE EXT REL 25 MG TABCR PO (16:34)
[2022-02-18] MEDS: RIVAROXABAN 20 MG TABLET PO (16:34)
[2022-02-18] MEDS: PANTOPRAZOLE SOD SESQUIHYDRATE 20 MG TAB PO (16:34)
[2022-02-18] MEDS: ROSUVASTATIN 5 MG TABLET PO (16:35)
[2022-02-18 17:06] LABS: Glucose Point of Care 208 mg/dl (65-105)
[2022-02-18 21:03] LABS: Glucose Point of Care 195 mg/dl (65-105)
[2022-02-19] VITALS (10 sets, daily range): BP systolic 128–150; BP diastolic 57–81; PULSE 73–93; RESP 16–18; TEMP 36.2–36.4; O2SAT 95–96
--- NOTE | 2022-02-19 05:18 | PC.NURSE ---
Pt resting comfortably. Pt states she has no complaints of pain at this time. Pt gets up independently to the bathroom. Pt anticipates discharge today. Will continue to monitor pt.
[2022-02-19] MEDS: LEVOTHYROXINE SODIUM 150 MCG TABLET PO (06:18)
[2022-02-19] MEDS: FLUTICASONE/SALMETEROL 115-21 MCG INHALER 1 PUFF 2 PUFF INHALATION (08:07)
[2022-02-19 08:46] LABS: Glucose Point of Care 108 mg/dl (65-105)
[2022-02-19] MEDS: METOPROLOL SUCCINATE EXT REL 25 MG TABCR PO (08:57)
[2022-02-19] MEDS: predniSONE 40 MG, predniSONE 10 MG 50 MG PO (08:57)
[2022-02-19] MEDS: THERAPEUTIC MULTIVITAMINS/MINERALS TAB (*BKC) 1 TABLET PO (08:57)
[2022-02-19] MEDS: CHOLECALCIFEROL 1,000 UNITS TABLET 4000 UNITS PO (08:57)
[2022-02-19] MEDS: SPIRONOLACTONE 25 MG TABLET PO (08:58)
[2022-02-19] MEDS: PANTOPRAZOLE SOD SESQUIHYDRATE 20 MG TAB PO (08:58)
[2022-02-19] MEDS: RIVAROXABAN 20 MG TABLET PO (08:58)
--- NOTE | 2022-02-19 11:31 | PM.DS ---
DS: Admitting Diagnosis Discharge Date February 19, 2022 Admitting Diagnosis Chest pain DS: Discharge Diagnosis Discharge Diagnosis (1) Chest pain: Code(s): R07.9 - Chest pain, unspecified Status: Acute Assessment and Plan: Suspect costochondritis, prednisone burst, heating pad Rule out underlying cardiac etiology, monitor telemetry, trend troponins, check stress test (2) SCHWARZ (dyspnea on exertion): Code(s): R06.09 - Other forms of dyspnea Status: Acute Assessment and Plan: Suspect this is 2/2 msk pain from intercostal spasm (3) BMI 38.0-38.9,adult: Code(s): Z68.38 - Body mass index [BMI] 38.0-38.9, adult Status: Acute (4) Pulmonary embolism: Onset Date: 11/09/21 Qualifiers: Acute cor pulmonale presence: unspecified Chronicity: acute Pulmonary embolism type: unspecified Qualified Code(s): I26.99 - Other pulmonary embolism without acute cor pulmonale Code(s): I26.99 - Other pulmonary embolism without acute cor pulmonale Status: Acute Assessment and Plan: Continue Xarelto for now, can likely discontinue in the next few months if no recurrences of blood clots (5) Deep vein thrombosis (DVT) of left lower extremity: Onset Date: 11/09/21 Code(s): I82.402 - Acute embolism and thrombosis of unspecified deep veins of left lower extremity Status: Acute Assessment and Plan: As above for PE (6) Controlled diabetes mellitus: Code(s): E11.9 - Type 2 diabetes mellitus without complications Status: Chronic Assessment and Plan: Check A1c, monitor Accu-Cheks, add sliding scale insulin (7) Anxiety: Code(s): F41.9 - Anxiety disorder, unspecified Status: Acute (8) Hypothyroidism, unspecified: Qualifiers: Hypothyroidism type: unspecified Qualified Code(s): E03.9 - Hypothyroidism, unspecified Code(s): E03.9 - Hypothyroidism, unspecified Status: Acute Assessment and Plan: Check TSH (9) Fibromyalgia: Code(s): M79.7 - Fibromyalgia Status: Chronic (10) GERD (gastroesophageal reflux disease): Qualifiers: Esophagitis presence: without esophagitis Qualified Code(s): K21.9 - Gastro-esophageal reflux disease without esophagitis Code(s): K21.9 - Gastro-esophageal reflux disease without esophagitis Status: Suspected (11) Coronary artery 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: Qualifiers: Coronary Disease-Associated Artery/Lesion type: unspecified vessel or lesion type [place] vs. transplanted heart: [place] heart Qualified Code(s): I25.10 - Atherosclerotic heart disease of [place] coronary artery without angina pectoris Code(s): I25.10 - Atherosclerotic heart disease of [place] coronary artery without angina pectoris Status: Chronic (12) Irritable bowel syndrome with diarrhea: Code(s): K58.0 - Irritable bowel syndrome with diarrhea Status: Acute (13) Mixed hyperlipidemia: Code(s): E78.2 - Mixed hyperlipidemia Status: Acute Plan DVT prophylaxis with Xarelto GI prophylaxis not indicated Code status full code DS: Summary Hospital Course Hospital Course: Patient was admitted for chest pain, workup negative. She can be discharged follow-up primary care physician as needed. Time Spent with Patient Time attestation: Total time spent providing and/or coordinating discharge services: Exam Narrative: General: No acute distress, alert and oriented per baseline HEENT: Atraumatic, normocephalic, mucous membranes moist CV: Regular rate and rhythm, S1, S2 Lungs: Clear to auscultation bilaterally, no rales or crackles noted, no wheezes, good air entry Msk: TTP over left rib 4-5, lateral ribs 4-5 on the left, and in thoracic area adjacent to ribs 4-5, ribs noted to be stuck in exhalation/depressed position with significant pain Abdomen: Soft, nontender, nondistended Extremities: Normal to
[2022-02-19 12:15] LABS: Glucose Point of Care 187 mg/dl (65-105)
== END 2022-02-19 15:30 | disposition home or self-care (01) ==
LOC: ANHED 19:39 → ANH2MED 21:35
PROVIDERS: Emergency Medicine; Admitting Provider Student in an Organized Health Care Education/Training Program; Emergency Provider Emergency Medicine; PCP Family Medicine; Visit Provider Chiropractor
DX: R07.9 Chest pain, unspecified (principal); R06.09 Other forms of dyspnea; E66.9 Obesity, unspecified; Z68.39 Body mass index [BMI] 39.0-39.9, adult; I26.99 Other pulmonary embolism without acute cor pulmonale; I82.402 Acute embolism and thrombosis of unspecified deep veins of left lower extremity; E11.9 Type 2 diabetes mellitus without complications; F41.9 Anxiety disorder, unspecified; E03.9 Hypothyroidism, unspecified; M79.7 Fibromyalgia; K21.9 Gastro-esophageal reflux disease without esophagitis; I25.10 Atherosclerotic heart disease of native coronary artery without angina pectoris; E78.2 Mixed hyperlipidemia; H81.10 Benign paroxysmal vertigo, unspecified ear; K58.0 Irritable bowel syndrome with diarrhea; I49.1 Atrial premature depolarization; J45.909 Unspecified asthma, uncomplicated; R61 Generalized hyperhidrosis; F32.A Depression, unspecified; Z86.718 Personal history of other venous thrombosis and embolism; Z79.01 Long term (current) use of anticoagulants; Z79.51 Long term (current) use of inhaled steroids; Z79.84 Long term (current) use of oral hypoglycemic drugs; Z79.899 Other long term (current) drug therapy; Z82.49 Family history of ischemic heart disease and other diseases of the circulatory system
CPT/HCPCS: 36415; 71045; 71275; 78452; 80053; 82948; 83036; 83690; 83880; 84443; 84484; 85025; 85380; 85610; 85730; 93005; 93017; 94640; 99285; A9270; A9502; G0378; J2785; J7512; Q9967

== ENCOUNTER → 2023-05-10 12:41 | Outpatient (CLI) | payer MEDICARE, SELFPAY ==
--- NOTE | ~2023-05-10 | CT_ITS ---
EXAMINATION: CTA chest DATE: 05/11/2023 08:47 UNION REPRESENTATIVE INDICATION: Abnormal echocardiogram. TECHNIQUE: Computed tomographic angiography (CTA) of the chest was performed with 100 mL Omnipaque-35 0 intravenous contrast. The dose-length product was 666.55 mGy-cm. Maximum intensity projection 3D-re constructions of the aorta and other arteries were constructed by the technologist on a separate work station. Automated exposure control and iterative reconstruction technique were employed. COMPARISON: CT dated 02/17/2022. FINDINGS: There is atherosclerosis of the aorta without aneurysm or dissection. Heart size normal. No significant pleural or pericardial effusion. No thoracic lymphadenopathy. No focal airspace consolid ation. No endobronchial lesions. No pulmonary nodules or masses. No pneumothorax. Moderate thoracic s pondylosis. IMPRESSION: 1. No acute cardiopulmonary disease. No significant vascular abnormality. Reviewed, dictated and finalized at location B. N REPRESENTATIVE
== END ==
PROVIDERS: PCP Family Medicine; Visit Provider Internal Medicine Cardiovascular Disease
DX: R93.1 Abnormal findings on diagnostic imaging of heart and coronary circulation (principal); R06.02 Shortness of breath; I47.19 Other supraventricular tachycardia; I49.1 Atrial premature depolarization; Z86.711 Personal history of pulmonary embolism
CPT/HCPCS: 71275; Q9967

== ENCOUNTER 2023-07-21 00:47 | Day surgery (SDC) | payer MEDICARE, SELFPAY ==
[2023-07-20 16:08] VITALS: BMI 36.9
[2023-07-21] VITALS (21 sets, daily range): BP systolic 109–135; BP diastolic 48–78; PULSE 64–87; RESP 14–22; TEMP 36.3–37.1; O2SAT 95–99; BMI 36.3
[2023-07-21 07:30] LABS: Basophils Absolute Auto 0.1 K/mm3 (0.0-0.1); Basophils Percent Auto 0.5 % (0.2-1.2); Eosinophils Absolute Auto 0.2 K/mm3 (0-0.3); Eosinophils Percent Auto 2.1 % (0-4.4); Hematocrit 42.2 % (37.0-47.0); Hemoglobin 13.3 g/dL (12.0-15.0); Immature Granulocyte Absolute 0.03 K/mm3 (0.00-0.031); Immature Granulocyte Percent A 0.3 % (0-0.5); Lymphocytes Absolute Auto 3.43 K/mm3 (0.9-3.2); Lymphocytes Percent Auto 33.1 % (18.3-44.2); Mean Corpuscular HGB Conc 31.5 g/dl (32-36); Mean Corpuscular Hemoglobin 30.1 pg (26-34); Mean Corpuscular Volume 95.5 fl (80-100); Mean Platelet Volume 10.6 fl (7.4-10.4); Monocytes Absolute Auto 0.7 K/mm3 (0.1-0.6); Monocytes Percent Auto 6.9 % (2.6-8.5); Neutrophils Absolute Auto 5.9 K/mm3 (1.3-6.7); Neutrophils Percent Auto 57.1 % (45.5-73.1); Platelet Count Result 300 k/mm3 (150-375); Red Blood Count 4.42 M/mm3 (4.2-5.4); Red Cell Distribution Width 14.3 % (11.5-14.5); White Blood Count 10.4 K/mm3 (4.5-10.0)
[2023-07-21 07:42] LABS: Anion Gap 11 mmol/L (8-16); Blood Urea Nitrogen 21 mg/dL (7-17); Calcium 9.3 mg/dL (8.4-10.2); Carbon Dioxide 22 mmol/L (22-30); Chloride 108 mmol/L (98-107); Estimated CRCL calculation 48 ml/min; Estimated Glomerular Filt Rate 60; Glucose 116 mg/dL (65-110); Sodium 141 mmol/L (137-145)
[2023-07-21] MEDS: SODIUM CHLORIDE 0.9% IV 500 ML 100 ML IV CONT (08:30)
--- NOTE | 2023-07-21 10:03 | WPDHPUPDATE1 ---
History and Physical Update Update Date/Time: 07/21/23 10:03 History and Physical has been reviewed, including an updated exam of the patient. There are NO changes in the patient's condition. Risks, benefits, and alternatives have been discussed and questions answered. Patient agrees to proceed with procedure.
--- NOTE | 2023-07-21 10:03 | WPDMODSED ---
Moderate Sedation Note-Pt Data Patient Data Diagnosis: Chest pain Present Complaint: Chest pain Procedure to be performed/Plan: Coronary angiography, left heart cath, +/- PCI Allergies Allergy/AdvReac Type Severity Reaction Status Date / Time Penicillins Allergy Unknown Hives Verified 07/21/23 07:16 montelukast AdvReac Intermediate Hallucinating Verified 07/21/23 07:16 suicidial ideation morphine AdvReac Hallucinati Verified 07/21/23 07:16 ng Home Medications Medication Instructions Recorded Confirmed Type cholecalciferol (vitamin D3) 100 4,000 unit PO DAILY 05/16/19 07/20/23 History mcg (4,000 unit) capsule multivitamin,gi-[id number]-[id number] 1 tablet PO BID 05/16/19 07/20/23 History (Complete Multivitamin tablet) pantoprazole 20 mg tablet,delayed 20 mg PO QAM 4 weeks #30 tabs 11/08/22 07/20/23 Rx release arginine HCl (L-arginine) 1,000 mg 1,000 mg PO . daily 11/11/22 07/20/23 History tablet levothyroxine 150 mcg tablet 150 mcg PO DAILY #90 tabs 11/30/22 07/21/23 Rx (Synthroid) fluticasone 250 mcg-salmeterol 50 1 inh inhalation BID #60 ea 12/27/22 07/20/23 Rx mcg/dose blistr powdr for inhalation (Advair Diskus) spironolactone 25 mg tablet 25 mg PO BID #60 tabs 02/28/23 07/20/23 Rx magnesium malate, chelate 250 mg PO . daily #180 caps 05/18/23 07/20/23 Rx rivaroxaban 20 mg tablet (Xarelto) 20 mg PO QAM #30 tabs 07/04/23 07/20/23 Rx albuterol sulfate 90 mcg/actuation 2 puff inhalation Q4H PRN 07/18/23 07/20/23 Rx aerosol inhaler (Proventil HFA) Shortness Of Breath #18 grams metformin 500 mg tablet,extended 500 mg PO BID #60 tabs 07/19/23 07/20/23 Rx release 24 hr aspirin 81 mg chewable tablet 81 mg PO DAILY 07/20/23 07/20/23 History coQ10 (ubiquinol) 100 mg capsule 100 mg PO DAILY 07/20/23 07/20/23 History metoprolol succinate 25 mg 37.5 mg PO DAILY 07/20/23 07/21/23 History tablet,extended release 24 hr zinc 50 mg tablet 50 mg PO DAILY 07/20/23 07/20/23 History Current Medications: Active Medications Sodium Chloride (Normal Saline Iv) 500 mls @ 100 mls/hr IV CONT .Q5H CHRISTIANO Sedation/Anesthesia: No previous sedation/anesthesia problems (including family history). [facility] Past Medical History Medical History Abdominal pain Abnormal fasting glucose Acute non-recurrent maxillary sinusitis Anxiety At low risk for fall Benign paroxysmal positional vertigo due to bilateral vestibular disorder BMI 36.0-36.9,adult BMI 38.0-38.9,adult BMI 39.0-39.9,adult Body mass index (BMI) 40.0-44.9, adult (10/11/18) Breast cancer screening by mammogram Candidiasis of genitalia in female Chest pain Lexiscan stress test negative for ischemia 02/18/2022 Chest pain in adult Chronic depression (~06/2021) Controlled diabetes mellitus fasting glucose 115 with hemoglobin A1c 6.2 on 08/24/2022. Fasting glucose 112 with hemoglobin A1c 5.7 on 05/05/2023. Coronary artery 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 cardiac catheterization 04/02/2019 with diffuse mild coronary artery disease with 25-40% lesion of the LAD, diagonal, circumflex, and obtuse marginal with normal right coronary artery. Deep vein thrombosis (DVT) of left lower extremity (11/09/21) Diarrhea Dizziness Dyspnea on exertion Elevated troponin Fibromyalgia Generalized weakness GERD (gastroesophageal reflux disease) Hirsutism Hypothyroidism, unspecified TSH suppressed at 0.35 08/24/2022. TSH 0.33 on 05/05/2023. Irritable bowel syndrome with diarrhea Leukocytosis WBC 12.8 on 11/11/2020. WBC 11.3 on 05/05/2023. Migraine without aura and without status migrainosus, not intractable Mixed hyperlipidemia Total cholesterol 160, triglycerides 126, HDL 52, LDL 85 on 08/24/2022. Cholesterol 221, triglycerides 172, HDL 59, LDL 139 with ratio of 3.7 on 05/05/2023. Moderate persistent asthma without status asthmaticus without complication Nausea Neoplasm of skin of cheek Obesity (BMI 30-39.
--- NOTE | 2023-07-21 10:06 | WPDCARDPROC ---
Cardiac Cath Procedure Note Date of procedure:: 07/21/23 Performing physician:: CATHETERIZATION LABORATORY REPORT Procedure Date: 07/21/2023 Band Machine Operator: Crystal Gray M.D., [facility]? Referring Physician: Clarence Cabello M.D. ? Anesthesia: Versed and Fentanyl were ordered and given in my presence at 09:28, procedure ended at 09:59. Supervision of nurse monitored moderate sedation with Versed and Fentanyl was provided for 31 minutes. Total of Versed 2mg and Fentanyl 50mcg were administered by the Shear Grinder Operator Helper RN Geno Claudio. Pre-op Diagnosis: Coronary artery disease Post-op Diagnosis: 1. The distal LAD has a moderate stenosis. 2. The first diagonal branch has a moderate stenosis in the proximal portion followed by a tandem lesion of 99%. 3. Left ventricular end-diastolic pressure of 16mmHg Procedure(s): 1. Moderate sedation 2. Ultrasound-guided access of the right common femoral artery 3. Coronary angiography 4. Left heart cath Access Site: Right common femoral artery Brief History and Clinical Indications: Patient is an 82 year old female with history of pulmonary embolism, type 2 diabetes mellitus, dyslipidemia who is referred for cardiac catheterization for angina. All risks, benefits and alternatives to left heart catheterization with or without percutaneous coronary intervention was discussed at length with the patient. Risk of complications including but not limited to bleeding, infection, arrhythmia, stroke, worsening kidney function, blood loss, groin hematoma, limb loss, emergency coronary artery bypass grafting, and even were discussed with the patient and all questions were answered. The patient understood and wished to proceed. Time out called, patient name, date of , medical record number, allergies, procedure performed, identify Band Machine Operator, patient and staff member concurred with accurate data, procedure carried on. Findings: LEFT HEART CATHETERIZATION FINDINGS: 1. Left main: The left main coronary artery is widely patent without any significant obstructive disease. 2. Left anterior descending: The proximal and mid LAD has luminal irregularities without any significant obstructive angiographic disease. The distal LAD has a moderate stenosis. The first diagonal branch has a moderate stenosis in the proximal portion followed by a tandem lesion of 99%. 3. Ramus: There is a large caliber Ramus with luminal irregularities. 4. Left circumflex: The left circumflex artery and the main marginal branches have mild luminal irregularities without any significant obstructive angiographic disease. 5. Right coronary artery: The RCA has luminal irregularities without any significant obstructive angiographic disease. The RCA is the dominant vessel. 6. Left ventricle: A. End-diastolic pressure 16 mmHg. B. LV gram deferred. C. No significant gradient across aortic valve on catheter pullback. Description of Procedure: Informed consent signed and placed in the chart. Patient transferred to laboratory animal caretaker room. Prepped and draped in usual sterile fashion. 2% lidocaine injected subcutaneously in right wrist area. 22-gauge venipuncture catheter used to access the right radial artery under ultrasound guidance. Unable to cannulate the radial artery with wire, therefore, femoral access pursued. Manual pressure applied to achieve hemostasis at right radial artery. 2% lidocaine in right groin area. Micropuncture needle used to access right common femoral artery with Seldinger technique under fluoroscopic and ultrasound guidance. J wire advanced, micropuncture cannula placed. Right iliofemoral angiogram performed, access confirmed and micropuncture cannula exchanged for 5-FR sheath. 5F FL 4 diagnostic catheter engaged Left Main Coronary Artery. 5F FR 4 diagnostic catheter engaged Right Coronary Artery. Multiple orthogonal angiogram obtained and reviewed 5F Pigtail diagnostic catheter crossed aortic valve to obtain L
== END 2023-07-21 17:00 | disposition home or self-care (01) ==
PROVIDERS: PCP Family Medicine; Visit Provider Internal Medicine
PROC: 4A023N7 Measurement of Cardiac Sampling and Pressure, Left Heart, Percutaneous Approach (ICD-10-PCS; CPT 93452; principal; 2023-07-21 08:30)
DX: I25.119 Atherosclerotic heart disease of native coronary artery with unspecified angina pectoris (principal); I47.19 Other supraventricular tachycardia; E78.5 Hyperlipidemia, unspecified; E11.9 Type 2 diabetes mellitus without complications; E03.9 Hypothyroidism, unspecified; E78.2 Mixed hyperlipidemia; M79.7 Fibromyalgia; F41.9 Anxiety disorder, unspecified; F32.A Depression, unspecified; J45.40 Moderate persistent asthma, uncomplicated; E66.9 Obesity, unspecified; Z68.36 Body mass index [BMI] 36.0-36.9, adult; K21.9 Gastro-esophageal reflux disease without esophagitis; K58.0 Irritable bowel syndrome with diarrhea; Z86.711 Personal history of pulmonary embolism; Z79.01 Long term (current) use of anticoagulants; Z79.51 Long term (current) use of inhaled steroids; Z79.84 Long term (current) use of oral hypoglycemic drugs; Z79.82 Long term (current) use of aspirin; Z86.718 Personal history of other venous thrombosis and embolism
CPT/HCPCS: 36415; 80048; 85025; 93458; C1769; C1887; C1894; J0461; J1644; J2250; J2305; J3010; J7040

== ENCOUNTER 2023-09-09 15:10 | Observation (INO) | payer MEDICARE, SELFPAY ==
[2023-09-09] VITALS (26 sets, daily range): BP systolic 113–147; BP diastolic 53–99; PULSE 72–116; RESP 12–20; TEMP 36.1–36.5; O2SAT 96–100; BMI 36.3
--- NOTE | ~2023-09-09 | XR_ITS ---
EXAMINATION: XR chest 2V DATE: 09/09/2023 15:41 INDICATION: Chest pain TECHNIQUE: Frontal and lateral views of the chest are obtained COMPARISON: 02/17/2022 FINDINGS: The lungs are free of acute opacities. No pleural effusion or pneumothorax. The cardiomedia stinal silhouette is normal. There is moderate thoracic spondylosis. IMPRESSION: 1. No acute cardiopulmonary abnormality. Reviewed, dictated and finalized at location F.
--- NOTE | 2023-09-09 15:12 | ECG_ITS ---
Measurements Intervals [place] Rate: 100 P: DC: 0 QRS: -47 QRSD: 79 T: 15 QT: 339 QTc: 438 Interpretive Statements SINUS TACHYCARDIA WITH SINUS ARRHYTHMIA ATRIAL AND VENTRICULAR PREMATURE COMPLEXES LEFT AXIS DEVIATION BORDERLINE AV CONDUCTION DELAY LOW QRS VOLTAGE IN PRECORDIAL LEADS EXTENSIVE ANTERIOR INFARCT, AGE INDETERMINATE CONSIDER INFERIOR INFARCT, AGE INDETERMINATE COMPARED TO ECG 02/17/2022 17:59:29 ABNORMAL ECG NO SIGNIFICANT CHANGES Electronically Signed On 09-09-2023 16:00:15 CDT by Pato Aguirre D.O.
--- NOTE | 2023-09-09 15:16 | ED.CHESTPAIN ---
HPI - Chest Pain General Chief Complaint: Chest Pain <Veronica Jaquez PA-C - Last Filed: 09/10/23 09:06> Stated Complaint: sent by ralph <Veronica Jaquez PA-C - Last Filed: 09/10/23 09:06> Time Seen by Provider: 09/09/23 15:16 <Veronica Jaquez PA-C - Last Filed: 09/10/23 09:06> Patient is an 82 y/o female, with PMH of PE, AFIB on xarelto, CAD, who presents to the ED with c/o CP. Patient reports she has had intermittent CP over the last 1 month, has had more persistent CP yesterday and today. States pain is intermittent, radiates through to back - occasionally to neck, worse with exertion. States she can only exert herself for about 5 minutes before she begins to feel chest tightness/heaviness and develops shortness of breath, fatigue, nausea. States she will need to rest for at least 15 minutes before symptoms improve. She had an office visit with her log chipper operator, Dr. Cabello, today and was referred to the ED for further evaluation. She was given NTG in office by Dr. Cabello which improved her CP. Rates CP 07/30 currently. Patient had cardiac cath on 07/22 which showed a 99% blockage of one of her vessels. Patient states she is being medically managed for this. <Veronica Jaquez PA-C - Last Filed: 09/10/23 09:06> Source: patient <Veronica Jaquez PA-C - Last Filed: 09/10/23 09:06> Mode of arrival: ambulatory <CHARISMA Barnard Last Filed: 09/10/23 09:06> Limitations: no limitations <Veronica Jauqez PA-C - Last Filed: 09/10/23 09:06> History of Present Illness HPI narrative: 82-year-old female presenting with exertional shortness of breath and chest pain. Saw her log chipper operator today who gave her a dose of nitro which helped with her discomfort and advised she come to the ER for further evaluation. Currently denies active symptoms. <Nhi Kan MD - Last Filed: 09/16/23 10:20> Related Data Home Medications: Home Medications Medication Instructions Recorded Confirmed cholecalciferol (vitamin D3) 100 4,000 unit PO DAILY 05/16/19 09/09/23 mcg (4,000 unit) capsule multivitamin,au-[id number]-[id number] 1 tablet PO BID 05/16/19 09/09/23 (Complete Multivitamin tablet) arginine HCl (L-arginine) 1,000 mg 1,000 mg PO . daily 11/11/22 09/09/23 tablet coQ10 (ubiquinol) 100 mg capsule 100 mg PO DAILY 07/20/23 09/09/23 <Veronica Jaquez PA-C - Last Filed: 09/10/23 09:06> Allergies/Adverse Reactions: Allergies Allergy/AdvReac Type Severity Reaction Status Date / Time Penicillins Allergy Unknown Hives Verified 09/09/23 15:21 montelukast AdvReac Intermediate Hallucinating Verified 09/09/23 15:21 suicidial ideation morphine AdvReac Hallucinati Verified 09/09/23 15:21 ng <Veronica Jaquez PA-C - Last Filed: 09/10/23 09:06> Review of Systems Review of Systems: All systems reviewed & are unremarkable except as noted in HPI and below <Nhi Kan MD - Last Filed: 09/16/23 10:20> [facility] Past Medical History Medical History: Medical History (Updated 09/13/23 @ 15:04 by Ahsan Ta MD) Abdominal pain Abnormal fasting glucose Acute non-recurrent maxillary sinusitis Anxiety At low risk for fall Benign paroxysmal positional vertigo due to bilateral vestibular disorder BMI 36.0-36.9,adult BMI 38.0-38.9,adult BMI 39.0-39.9,adult Body mass index (BMI) 40.0-44.9, adult (10/11/18) Breast cancer screening by mammogram Candidiasis of genitalia in female Chest pain Lexiscan stress test negative for ischemia 02/18/2022 Chest pain in adult Chronic depression (~06/2021) Controlled diabetes mellitus fasting glucose 115 with hemoglobin A1c 6.2 on 08/24/2022. Fasting glucose 112 with hemoglobin A1c 5.7 on 05/05/2023. Coronary artery 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 cardiac catheterization 04/02/2019 with diffuse mild coronary artery disease with 25-40% lesion of the LAD, diagonal, circumflex, a
[2023-09-09 15:40] LABS: Basophils Absolute Auto 0.1 K/mm3 (0.0-0.1); Basophils Percent Auto 0.5 % (0.2-1.2); Eosinophils Absolute Auto 0.3 K/mm3 (0-0.3); Eosinophils Percent Auto 2.5 % (0-4.4); Hematocrit 42.6 % (37.0-47.0); Hemoglobin 13.8 g/dL (12.0-15.0); Immature Granulocyte Absolute 0.03 K/mm3 (0.00-0.031); Immature Granulocyte Percent A 0.3 % (0-0.5); Lymphocytes Absolute Auto 3.52 K/mm3 (0.9-3.2); Lymphocytes Percent Auto 31.9 % (18.3-44.2); Mean Corpuscular HGB Conc 32.4 g/dl (32-36); Mean Corpuscular Hemoglobin 29.9 pg (26-34); Mean Corpuscular Volume 92.4 fl (80-100); Mean Platelet Volume 10.8 fl (7.4-10.4); Monocytes Absolute Auto 0.7 K/mm3 (0.1-0.6); Monocytes Percent Auto 6.6 % (2.6-8.5); Neutrophils Absolute Auto 6.4 K/mm3 (1.3-6.7); Neutrophils Percent Auto 58.2 % (45.5-73.1); Platelet Count Result 312 k/mm3 (150-375); Red Blood Count 4.61 M/mm3 (4.2-5.4); Red Cell Distribution Width 14.6 % (11.5-14.5)
[2023-09-09] MEDS: ONDANSETRON INJ 4 MG/2 ML VIAL IV PUSH (15:47)
[2023-09-09] MEDS: ASPIRIN 81 MG CHEWABLE TABLET 324 MG PO (15:47)
[2023-09-09 15:50] LABS: INR 1.6; Prothrombin Time 20.1 Seconds (11.1-14.7)
[2023-09-09 15:51] LABS: Partial Thromboplastin Time 33.6 Seconds (22.3-36.8)
[2023-09-09 15:56] LABS: Alanine Aminotransferase 23 U/L (6-35); Alkaline Phosphatase 89 U/L (38-126); Anion Gap 8 mmol/L (8-16); Bilirubin,Total 0.4 mg/dL (0.2-1.3); Blood Urea Nitrogen 18 mg/dL (7-17); Calcium 9.8 mg/dL (8.4-10.2); Carbon Dioxide 20 mmol/L (22-30); Chloride 112 mmol/L (98-107); Estimated CRCL calculation 62 ml/min; Estimated Glomerular Filt Rate > 60; Glucose 121 mg/dL (65-110); Lipase 129 U/L (23-300); Potassium 3.9 mmol/L (3.4-5.0); Sodium 140 mmol/L (137-145)
[2023-09-09 16:04] LABS: NT Pro B Type Natriuretic Pept 299 pg/mL (19.9-100); Troponin I < 0.012 ng/mL (0.000-0.034)
[2023-09-09 16:14] LABS: Aspartate Amino Transferase 30 U/L (14-36)
--- NOTE | 2023-09-09 18:20 | ECG_ITS ---
Measurements Intervals [place] Rate: 75 P: 28 NV: 221 QRS: -24 QRSD: 87 T: 1 QT: 375 QTc: 421 Interpretive Statements SINUS RHYTHM WITH FIRST DEGREE AV BLOCK LOW QRS VOLTAGE IN PRECORDIAL LEADS PATTERN CONSISTENT WITH PULMONARY DISEASE CONSIDER INFERIOR INFARCT, AGE INDETERMINATE ABNORMAL ECG COMPARED TO ECG 09/09/2023 15:22:13 SINUS RHYTHM NOW PRESENT FIRST DEGREE AV BLOCK NOW PRESENT Electronically Signed On 09-09-2023 20:09:18 CDT by Pato Aguirre D.O.
[2023-09-09 18:55] LABS: Troponin I < 0.012 ng/mL (0.000-0.034)
--- NOTE | 2023-09-09 20:08 | PM.IMHP ---
H&P: HPI History of Present Illness Date/Time: 09/09/23 20:08 Chief Complaint: Chest pain Narrative: this is an 82-year-old female with past medical history significant for coronary artery disease, fibromyalgia, hypothyroidism, type 2 diabetes mellitus, GERD, pulmonary embolism. patient comes to the emergency room instructed by her community arts worker due to chest pain, recent left heart catheterization was significant for blockage. Patient complaints of shortness of with minimal exertion and chest pain localized to the retrosternal area feels like 10 books on top of my chest , denies any lightheadedness, syncope near syncope, no palpitations, has had orthopnea and PND no leg swelling, no pedal swelling, has a cough nonproductive, no fevers no rigors no chills. While at the office patient receive nitroglycerin which took the pain away. Preliminary workup has been essentially nonrevealing. EXAMINATION: XR chest 2V DATE: 09/09/2023 15:41 INDICATION: Chest pain TECHNIQUE: Frontal and lateral views of the chest are obtained COMPARISON: 02/17/2022 FINDINGS: The lungs are free of acute opacities. No pleural effusion or pneumothorax. The cardiomediastinal silhouette is normal. There is moderate thoracic spondylosis. IMPRESSION: 1. No acute cardiopulmonary abnormality. Review of Systems Review of Systems: Chest pain, shortness of breath, PND, orthopnea PMFSH Past Medical History Medical History Abdominal pain Abnormal fasting glucose Acute non-recurrent maxillary sinusitis Anxiety At low risk for fall Benign paroxysmal positional vertigo due to bilateral vestibular disorder BMI 36.0-36.9,adult BMI 38.0-38.9,adult BMI 39.0-39.9,adult Body mass index (BMI) 40.0-44.9, adult (10/11/18) Breast cancer screening by mammogram Candidiasis of genitalia in female Chest pain Lexiscan stress test negative for ischemia 02/18/2022 Chest pain in adult Chronic depression (~06/2021) Controlled diabetes mellitus fasting glucose 115 with hemoglobin A1c 6.2 on 08/24/2022. Fasting glucose 112 with hemoglobin A1c 5.7 on 05/05/2023. Coronary artery 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 cardiac catheterization 04/02/2019 with diffuse mild coronary artery disease with 25-40% lesion of the LAD, diagonal, circumflex, and obtuse marginal with normal right coronary artery. Cardiac catheterization 07/21/2023 with moderate distal LAD lesion. Moderate lesion of the 1st diagonal with tandem distal lesion of 99%. Deep vein thrombosis (DVT) of left lower extremity (11/09/21) Diarrhea Dizziness Dyspnea on exertion Elevated troponin Fibromyalgia Generalized weakness GERD (gastroesophageal reflux disease) Hirsutism Hypothyroidism, unspecified TSH suppressed at 0.35 08/24/2022. TSH 0.33 on 05/05/2023. Irritable bowel syndrome with diarrhea Leukocytosis WBC 12.8 on 11/11/2020. WBC 11.3 on 05/05/2023. Migraine without aura and without status migrainosus, not intractable Mixed hyperlipidemia Total cholesterol 160, triglycerides 126, HDL 52, LDL 85 on 08/24/2022. Cholesterol 221, triglycerides 172, HDL 59, LDL 139 with ratio of 3.7 on 05/05/2023. Moderate persistent asthma without status asthmaticus without complication Nausea Neoplasm of skin of cheek Obesity (BMI 30-39.9) Obesity (BMI 35.0-39.9 without comorbidity) Pancreatitis Pulmonary embolism (11/09/21) Urinary tract infection Surgical History Surgical History Hx of cholecystectomy Family History Family History Sibling Family history of condition Family history of Parkinson's disease Father CHF (congestive heart failure) Social History Social History Smoking status: Never smoker Second hand tobacco smoke exposure: No Alcohol intake: never Substance
--- NOTE | 2023-09-09 21:31 | ECG_ITS ---
Measurements Intervals [place] Rate: 73 P: -11 GA: 202 QRS: -21 QRSD: 90 T: -4 QT: 383 QTc: 424 Interpretive Statements SINUS RHYTHM LOW QRS VOLTAGE IN PRECORDIAL LEADS PATTERN CONSISTENT WITH PULMONARY DISEASE CONSIDER INFERIOR INFARCT, AGE INDETERMINATE ABNORMAL ECG COMPARED TO ECG 09/09/2023 18:22:12 NO SIGNIFICANT CHANGES Electronically Signed On 09-10-2023 7:25:18 CDT by Pato Aguirre D.O.
[2023-09-09 22:00] LABS: Troponin I < 0.012 ng/mL (0.000-0.034)
--- NOTE | 2023-09-09 22:19 | ADMGEN ---
This patient, Damaris Wilhelm, was admitted to IMU Room [id number] Patient/family oriented to hospital policies and general routines including ID bracelet, bed and alarms, visiting hours, pain management, procedures, bathroom and other care routines, personal items, smoking policy, room service/diet, and visiting hours. Information on how to activate the Rapid Response Team has been discussed. Patient/Family are encouraged to report perceived risks to care and to ask questions if they do not understand what they are told or what they should do.
[2023-09-10] VITALS (17 sets, daily range): BP systolic 111–135; BP diastolic 50–82; PULSE 68–96; RESP 12–24; TEMP 36.1–36.8; O2SAT 92–97
[2023-09-10] MEDS: LEVOTHYROXINE SODIUM 150 MCG TABLET PO (06:11)
[2023-09-10] MEDS: FLUTICASONE/SALMETEROL 115-21 MCG INHALER 1 PUFF 2 PUFF INHALATION ×2 (08:14→20:57)
[2023-09-10] MEDS: PANTOPRAZOLE SOD SESQUIHYDRATE 20 MG TAB PO (09:03)
[2023-09-10] MEDS: METOPROLOL SUCCINATE EXT REL 25 MG TABCR PO ×2 (09:04→09:45)
[2023-09-10] MEDS: MAGNESIUM OXIDE 200 MG TABLET PO (09:04)
[2023-09-10] MEDS: ASPIRIN 81 MG CHEWABLE TABLET PO (09:04)
[2023-09-10] MEDS: SPIRONOLACTONE 25 MG TABLET PO ×2 (09:04→18:09)
--- NOTE | 2023-09-10 09:17 | PM.CNCAR ---
Assessment and Plan Assessment and plan (1) Unstable angina pectoris: Code(s): I20.0 - Unstable angina Status: Acute Assessment and Plan: She is having chest pain consistent with unstable angina which is progressive and occurring at rest. Plan will be to up titrate medications initially and depending on response consider PCI to the diagonal branch. Will start her on isosorbide mononitrate 30 mg daily. P.r.n. nitro were also be ordered. Will increase her metoprolol succinate to 50 mg daily. Continue aspirin and will add rosuvastatin 10 mg daily also. Depending on response, will is to discharge her for outpatient follow-up and outpatient PCI versus keeping her in the hospital to undergo repeat angiogram early next week. In preparation, will hold her Xarelto. Will give DVT dose enoxaparin 40 mg subQ daily in the interim. (2) CAD (coronary artery disease): Code(s): I25.10 - Atherosclerotic heart disease of [place] coronary artery without angina pectoris Status: Acute Assessment and Plan: Plan as above (3) Hypertension: Code(s): I10 - Essential (primary) hypertension Status: Acute Assessment and Plan: At goal (4) History of pulmonary embolism: Code(s): Z86.711 - Personal history of pulmonary embolism Status: Acute Assessment and Plan: Holding anticoagulation but will use DVT prophylaxis dose in the interim (5) Chronic anticoagulation: Code(s): Z79.01 - terminal system operator (current) use of anticoagulants Status: Acute Assessment and Plan: On Xarelto but will currently hold case catheterization is performed History of Present Illness History of Present Illness Consult date/time: 09/10/23 09:17 Requesting physician: Nhi Kan MD Consult reason: chest pain Reason For Visit: Unstable Angina Narrative: Reason for consultation: Chest pain, angina Date of service 09/10/2023 Requesting provider: Dr. Kan History patient is an 82-year-old female patient of mine who has a history of pulmonary embolism, atrial tachycardia as well as coronary disease. She had a catheterization performed in July 2019 for showing a 99% stenosis in a diagonal branch. Due to the diameter of the artery it was initially decided to try to treat this medically. She was seen in the office yesterday and was still having ongoing symptoms. Symptoms were occurring at rest and worsened with exertion. Symptoms included chest pain described as an L4 foot slightly pressing on the anterior aspect of her chest that worsen with exertion. It was associated with shortness of breath. She also still has some occasional palpitations will last from min her so. She denies any syncope, presyncope, paroxysmal nocturnal dyspnea, orthopnea, and edema. In the office she was given 1 sublingual nitroglycerin which did seem to improve her symptoms. Therefore plan was to have her come to the emergency department for rule out AR and to up titrate medications and possibly intervene upon the diagonal branch. She states that she has had some recurrence of her chest discomfort this morning and last night but it is still much better than it was and has been over the past several weeks home. Review of Systems Review of Systems: All systems reviewed & are unremarkable except as noted in HPI and below Constitutional: Constitutional: Reports no additional constitutional complaints Eyes: Eyes: Reports no additional eye complaints ENT: Reports Normal hearing present Cardiovascular: Cardiovascular: Reports chest pain Respiratory: Respiratory: Denies dyspnea Gastrointestinal: Gastrointestinal: Denies abdominal pain Genitourinary: Genitourinary: Denies hematuria Musculoskeletal: Musculoskeletal: Denies back pain Integumentary/Breasts: Skin/Breast: Denies dry skin Neurologic: Denies Abnormal speech present Psychiatric: Psychiatric: Denies anxiety and Denies behavioral changes
[2023-09-10] MEDS: ENOXAPARIN 40 MG/0.4 ML SYRINGE SUB-Q (09:46)
[2023-09-10] MEDS: ROSUVASTATIN 10 MG TABLET PO (09:46)
[2023-09-10] MEDS: ISOSORBIDE MONONITRATE 30 MG TAB.ER.24H PO (09:46)
--- NOTE | 2023-09-10 09:52 | P.PNIM_ITS ---
Progress Note: A&P Assessment and Plan (1) Unstable angina pectoris: Code(s): I20.0 - Unstable angina Status: Acute (2) Chest pain: Qualifiers: Chest pain type: chest pain due to myocardial ischemia Ischemic chest pain type: unstable angina pectoris Qualified Code(s): I20.0 - Unstable angina Code(s): R07.9 - Chest pain, unspecified Status: Acute (3) Hypertension: Qualifiers: Hypertension type: primary hypertension Qualified Code(s): I10 - Essential (primary) hypertension Code(s): I10 - Essential (primary) hypertension Status: Acute (4) History of pulmonary embolism: Code(s): Z86.711 - Personal history of pulmonary embolism Status: Acute (5) Chronic anticoagulation: Code(s): Z79.01 - half-way (current) use of anticoagulants Status: Acute (6) CAD (coronary artery disease): Code(s): I25.10 - Atherosclerotic heart disease of [place] coronary artery without angina pectoris Status: Acute (7) Hypercoagulable state: Code(s): D68.59 - Other primary thrombophilia Status: Acute Plan Chest pain/Unstable angina Pectoris * Atypical chest pain worse with coughing likely secondary to pneumonia * serial troponins x3 q.6 hours Negative * EKG without ischemic changes q.6 hours SR * cardiology consulted * Treat with Imdur and increase BB * catheterization if continues and no relieve with medical management * Will need CC pending inpatient or O/P * continuous cardiac monitoring * HX pancreatitis/Lipase WNL * Holding Xarelto will place on Lovenox 1mg/kg for possible cath patient with HX of DVT's and PE Hypercoagulability with HX of DVT and PE * Xarelto on hold for possible cath * Lovenox 1mg/kg for coverage HTN * Resume home medications * BP per unit protocol * Cardiology added Imdur and increased her BB Diabetes * Accu-Cheks a.c. HS * sliding scale insulin * hold oral diabetic Metformin * resume patient's home long-acting * lipid panel pending * Diabetic diet * consult to dietitian * encourage lifestyle modifications and weight loss * Optimize Drake inhibitors and statins. * Watch for hypoglycemia/hypoglycemic protocol ordered Code status: Full code per patient DVT prophylaxis: Lovenox Stress ulcer prophylaxis: Protonix 40 daily PT/OT notes: Disposition: Patient admitted to the cardiac unit for further treatment of unstable angina, cardiology recommends medical management and if unchanged will need cardiac cath either inpatient or O/P if stable. Time Spent With Patient Time with patient: 15 - 25 minutes Subjective Date/time seen: 09/10/23 09:52 Interval history: Medical record: Chest pain Narrative: ?this is an 82-year-old female with past medical history significant for coronary artery disease, fibromyalgia, hypothyroidism, type 2 diabetes mellitus, GERD, pulmonary embolism. patient comes to the emergency room instructed by her sales assistant institutional sales due to chest pain, recent left heart catheterization? was significant for blockage.? Patient complaints of shortness of with minimal exertion and chest pain localized to the retrosternal area feels like 10 books on top of my chest , denies any lightheadedness, syncope near syncope, no palpitations, has had orthopnea and PND no leg swelling, no pedal swelling, has a cough nonproductive, no fevers no rigors no chills.? While at the office patient receive nitroglycerin which took the pain away.? Preliminary workup
--- NOTE | 2023-09-10 09:52 | PM.IMPN ---
Progress Note: A&P Assessment and Plan (1) Unstable angina pectoris: Code(s): I20.0 - Unstable angina Status: Acute (2) Chest pain: Qualifiers: Chest pain type: chest pain due to myocardial ischemia Ischemic chest pain type: unstable angina pectoris Qualified Code(s): I20.0 - Unstable angina Code(s): R07.9 - Chest pain, unspecified Status: Acute (3) Hypertension: Qualifiers: Hypertension type: primary hypertension Qualified Code(s): I10 - Essential (primary) hypertension Code(s): I10 - Essential (primary) hypertension Status: Acute (4) History of pulmonary embolism: Code(s): Z86.711 - Personal history of pulmonary embolism Status: Acute (5) Chronic anticoagulation: Code(s): Z79.01 - residential (current) use of anticoagulants Status: Acute (6) CAD (coronary artery disease): Code(s): I25.10 - Atherosclerotic heart disease of [place] coronary artery without angina pectoris Status: Acute (7) Hypercoagulable state: Code(s): D68.59 - Other primary thrombophilia Status: Acute Plan Chest pain/Unstable angina Pectoris Atypical chest pain worse with coughing likely secondary to pneumonia serial troponins x3 q.6 hours Negative EKG without ischemic changes q.6 hours SR cardiology consulted Treat with Imdur and increase BB catheterization if continues and no relieve with medical management Will need CC pending inpatient or O/P continuous cardiac monitoring HX pancreatitis/Lipase WNL Holding Xarelto will place on Lovenox 1mg/kg for possible cath patient with HX of DVT's and PE Hypercoagulability with HX of DVT and PE Xarelto on hold for possible cath Lovenox 1mg/kg for coverage HTN Resume home medications BP per unit protocol Cardiology added Imdur and increased her BB Diabetes Accu-Cheks a.c. HS sliding scale insulin hold oral diabetic Metformin resume patient's home long-acting lipid panel pending Diabetic diet consult to dietitian encourage lifestyle modifications and weight loss Optimize Drake inhibitors and statins. Watch for hypoglycemia/hypoglycemic protocol ordered Code status: Full code per patient DVT prophylaxis: Lovenox Stress ulcer prophylaxis: Protonix 40 daily PT/OT notes: Disposition: Patient admitted to the cardiac unit for further treatment of unstable angina, cardiology recommends medical management and if unchanged will need cardiac cath either inpatient or O/P if stable. Time Spent With Patient Time with patient: 15 - 25 minutes Subjective Date/time seen: 09/10/23 09:52 Interval history: Medical record: Chest pain Narrative: ?this is an 82-year-old female with past medical history significant for coronary artery disease, fibromyalgia, hypothyroidism, type 2 diabetes mellitus, GERD, pulmonary embolism. patient comes to the emergency room instructed by her boarding machine operator due to chest pain, recent left heart catheterization? was significant for blockage.? Patient complaints of shortness of with minimal exertion and chest pain localized to the retrosternal area feels like 10 books on top of my chest , denies any lightheadedness, syncope near syncope, no palpitations, has had orthopnea and PND no leg swelling, no pedal swelling, has a cough nonproductive, no fevers no rigors no chills.? While at the office patient receive nitroglycerin which took the pain away.? Preliminary workup has been essentially nonrevealing. 09/09: Patient currently denying CP states new medication helping. Will continue with medical management per cardiology plan is for cardiac cath either O/P or inpatient based on patient response to medication. Review of Systems Review of Systems: All systems reviewed & are unremarkable except as noted in HPI and below Exam Narrative: Physical Exam: GENERAL: Alert and oriented x 3. No acute distress. Wel
[2023-09-10 12:01] LABS: Glucose Point of Care 143 mg/dl (65-105)
[2023-09-10] MEDS: ENOXAPARIN 60 MG/0.6 ML SYRINGE 55 MG SUB-Q (12:23)
[2023-09-10 15:50] LABS: Glucose Point of Care 135 mg/dl (65-105)
[2023-09-10] MEDS: ENOXAPARIN 100 MG/ML SYRINGE 95 MG SUB-Q (20:03)
[2023-09-10 21:01] LABS: Glucose Point of Care 143 mg/dl (65-105)
[2023-09-10] MEDS: ACETAMINOPHEN 500 MG TABLET 1000 MG PO (21:48)
[2023-09-11] VITALS (20 sets, daily range): BP systolic 111–126; BP diastolic 50–65; PULSE 72–92; RESP 18–20; TEMP 36.2–36.7; O2SAT 93–98
[2023-09-11 05:02] LABS: Basophils Absolute Auto 0.1 K/mm3 (0.0-0.1); Basophils Percent Auto 0.6 % (0.2-1.2); Eosinophils Absolute Auto 0.3 K/mm3 (0-0.3); Eosinophils Percent Auto 3.1 % (0-4.4); Hematocrit 36.9 % (37.0-47.0); Hemoglobin 11.6 g/dL (12.0-15.0); Immature Granulocyte Absolute 0.03 K/mm3 (0.00-0.031); Immature Granulocyte Percent A 0.3 % (0-0.5); Lymphocytes Absolute Auto 4.34 K/mm3 (0.9-3.2); Lymphocytes Percent Auto 42.7 % (18.3-44.2); Mean Corpuscular HGB Conc 31.4 g/dl (32-36); Mean Corpuscular Hemoglobin 30.1 pg (26-34); Mean Corpuscular Volume 95.8 fl (80-100); Mean Platelet Volume 11.1 fl (7.4-10.4); Monocytes Absolute Auto 0.8 K/mm3 (0.1-0.6); Monocytes Percent Auto 7.5 % (2.6-8.5); Neutrophils Absolute Auto 4.7 K/mm3 (1.3-6.7); Neutrophils Percent Auto 45.8 % (45.5-73.1); Platelet Count Result 263 k/mm3 (150-375); Red Blood Count 3.85 M/mm3 (4.2-5.4); Red Cell Distribution Width 14.7 % (11.5-14.5); White Blood Count 10.2 K/mm3 (4.5-10.0)
[2023-09-11 05:26] LABS: Alanine Aminotransferase 19 U/L (6-35); Albumin Level 3.4 g/dL (3.5-5.1); Alkaline Phosphatase 69 U/L (38-126); Anion Gap 3 mmol/L (8-16); Aspartate Amino Transferase 21 U/L (14-36); Bilirubin,Total 0.4 mg/dL (0.2-1.3); Blood Urea Nitrogen 19 mg/dL (7-17); Carbon Dioxide 27 mmol/L (22-30); Chloride 110 mmol/L (98-107); Estimated CRCL calculation 50 ml/min; Estimated Glomerular Filt Rate 60; Glucose 112 mg/dL (65-110); Magnesium 1.7 mg/dL (1.6-2.3); Potassium 3.7 mmol/L (3.4-5.0); Sodium 140 mmol/L (137-145)
[2023-09-11] MEDS: LEVOTHYROXINE SODIUM 150 MCG TABLET PO (06:01)
[2023-09-11] MEDS: FLUTICASONE/SALMETEROL 115-21 MCG INHALER 1 PUFF 2 PUFF INHALATION ×2 (07:51→21:00)
--- NOTE | 2023-09-11 08:34 | P.PNIM_ITS ---
Progress Note: A&P Assessment and Plan (1) Unstable angina pectoris: Code(s): I20.0 - Unstable angina Status: Acute (2) Chest pain: Qualifiers: Chest pain type: chest pain due to myocardial ischemia Ischemic chest pain type: unstable angina pectoris Qualified Code(s): I20.0 - Unstable angina Code(s): R07.9 - Chest pain, unspecified Status: Acute (3) Hypertension: Qualifiers: Hypertension type: primary hypertension Qualified Code(s): I10 - Essential (primary) hypertension Code(s): I10 - Essential (primary) hypertension Status: Acute (4) History of pulmonary embolism: Code(s): Z86.711 - Personal history of pulmonary embolism Status: Acute (5) Chronic anticoagulation: Code(s): Z79.01 - half-way (current) use of anticoagulants Status: Acute (6) CAD (coronary artery disease): Code(s): I25.10 - Atherosclerotic heart disease of [place] coronary artery without angina pectoris Status: Acute (7) Hypercoagulable state: Code(s): D68.59 - Other primary thrombophilia Status: Acute Plan Chest pain/Unstable angina Pectoris * serial troponins x3 q.6 hours Negative * EKG without ischemic changes q.6 hours SR * cardiology consulted * Treat with Imdur and increase BB * catheterization if continues and no relieve with medical management * Will need CC pending inpatient or O/P * continuous cardiac monitoring * HX pancreatitis/Lipase WNL * Holding Xarelto will place on Lovenox 1mg/kg for possible cath patient with HX of DVT's and PE 09/10: * Angina improved but still moderate dyspnea * patient would like to proceed with PCI to diagonal branch Hypercoagulability with HX of DVT and PE * Xarelto on hold for possible cath * Lovenox 1mg/kg for coverage HTN * Resume home medications * BP per unit protocol * Cardiology added Imdur and increased her BB Diabetes * Accu-Cheks a.c. HS * sliding scale insulin * hold oral diabetic Metformin * resume patient's home long-acting * lipid panel pending * Diabetic diet * consult to dietitian * encourage lifestyle modifications and weight loss * Optimize Drake inhibitors and statins. * Watch for hypoglycemia/hypoglycemic protocol ordered Code status: Full code per patient DVT prophylaxis: Lovenox Stress ulcer prophylaxis: Protonix 40 daily PT/OT notes: Disposition: Patient admitted to the cardiac unit for further treatment of unstable angina, cardiology recommends medical management patient would like to proceed with PCI Time Spent With Patient Time with patient: 15 - 25 minutes Subjective Date/time seen: 09/11/23 08:34 Interval history: Medical record: Chest pain Narrative: ?this is an 82-year-old female with past medical history significant for coronary artery disease, fibromyalgia, hypothyroidism, type 2 diabetes mellitus, GERD, pulmonary embolism. patient comes to the emergency room instructed by her field sales agent due to chest pain, recent left heart catheterization? was significant for blockage.? Patient complaints of shortness of with minimal exertion and chest pain localized to the retrosternal area feels like 10 books on top of my chest , denies any lightheadedness, syncope near syncope, no palpitations, has had orthopnea and PND no leg swelling, no pedal swelling, has a cough nonproductive, no fevers no rigors no chills.? While at the office patient receive nitroglycerin which took the pain away.? Preliminary
--- NOTE | 2023-09-11 08:34 | PM.IMPN ---
Progress Note: A&P Assessment and Plan (1) Unstable angina pectoris: Code(s): I20.0 - Unstable angina Status: Acute (2) Chest pain: Qualifiers: Chest pain type: chest pain due to myocardial ischemia Ischemic chest pain type: unstable angina pectoris Qualified Code(s): I20.0 - Unstable angina Code(s): R07.9 - Chest pain, unspecified Status: Acute (3) Hypertension: Qualifiers: Hypertension type: primary hypertension Qualified Code(s): I10 - Essential (primary) hypertension Code(s): I10 - Essential (primary) hypertension Status: Acute (4) History of pulmonary embolism: Code(s): Z86.711 - Personal history of pulmonary embolism Status: Acute (5) Chronic anticoagulation: Code(s): Z79.01 - care home (current) use of anticoagulants Status: Acute (6) CAD (coronary artery disease): Code(s): I25.10 - Atherosclerotic heart disease of [place] coronary artery without angina pectoris Status: Acute (7) Hypercoagulable state: Code(s): D68.59 - Other primary thrombophilia Status: Acute Plan Chest pain/Unstable angina Pectoris serial troponins x3 q.6 hours Negative EKG without ischemic changes q.6 hours SR cardiology consulted Treat with Imdur and increase BB catheterization if continues and no relieve with medical management Will need CC pending inpatient or O/P continuous cardiac monitoring HX pancreatitis/Lipase WNL Holding Xarelto will place on Lovenox 1mg/kg for possible cath patient with HX of DVT's and PE 09/10: Angina improved but still moderate dyspnea patient would like to proceed with PCI to diagonal branch Hypercoagulability with HX of DVT and PE Xarelto on hold for possible cath Lovenox 1mg/kg for coverage HTN Resume home medications BP per unit protocol Cardiology added Imdur and increased her BB Diabetes Accu-Cheks a.c. HS sliding scale insulin hold oral diabetic Metformin resume patient's home long-acting lipid panel pending Diabetic diet consult to dietitian encourage lifestyle modifications and weight loss Optimize Drake inhibitors and statins. Watch for hypoglycemia/hypoglycemic protocol ordered Code status: Full code per patient DVT prophylaxis: Lovenox Stress ulcer prophylaxis: Protonix 40 daily PT/OT notes: Disposition: Patient admitted to the cardiac unit for further treatment of unstable angina, cardiology recommends medical management patient would like to proceed with PCI Time Spent With Patient Time with patient: 15 - 25 minutes Subjective Date/time seen: 09/11/23 08:34 Interval history: Medical record: Chest pain Narrative: ?this is an 82-year-old female with past medical history significant for coronary artery disease, fibromyalgia, hypothyroidism, type 2 diabetes mellitus, GERD, pulmonary embolism. patient comes to the emergency room instructed by her newspaper photographer due to chest pain, recent left heart catheterization? was significant for blockage.? Patient complaints of shortness of with minimal exertion and chest pain localized to the retrosternal area feels like 10 books on top of my chest , denies any lightheadedness, syncope near syncope, no palpitations, has had orthopnea and PND no leg swelling, no pedal swelling, has a cough nonproductive, no fevers no rigors no chills.? While at the office patient receive nitroglycerin which took the pain away.? Preliminary workup has been essentially nonrevealing. 09/09: Patient currently denying CP states new medication helping. Will continue with medical management per cardiology plan is for cardiac cath either O/P or inpatient based on patient response to medication. 09/10: Patient denied any further chest pain but still with complaints of dyspnea worse with exertion. Per Cardiology notes patient would like to proceed with PCI. Review of Systems Review of Systems:
[2023-09-11] MEDS: MAGNESIUM OXIDE 200 MG TABLET PO (09:29)
[2023-09-11] MEDS: SPIRONOLACTONE 25 MG TABLET PO ×2 (09:29→16:07)
[2023-09-11] MEDS: ENOXAPARIN 100 MG/ML SYRINGE 95 MG SUB-Q ×2 (09:29→20:35)
[2023-09-11] MEDS: PANTOPRAZOLE SOD SESQUIHYDRATE 20 MG TAB PO (09:29)
[2023-09-11] MEDS: METOPROLOL SUCCINATE EXT REL 50 MG TABCR PO (09:29)
[2023-09-11] MEDS: ISOSORBIDE MONONITRATE 30 MG TAB.ER.24H PO (09:29)
[2023-09-11] MEDS: ASPIRIN 81 MG CHEWABLE TABLET PO (09:29)
[2023-09-11] MEDS: ROSUVASTATIN 10 MG TABLET PO (09:29)
[2023-09-11 09:30] LABS: Glucose Point of Care 109 mg/dl (65-105)
--- NOTE | 2023-09-11 11:08 | PM.PNCARD ---
Progress Note: A&P Assessment and Plan (1) Unstable angina pectoris: Code(s): I20.0 - Unstable angina Status: Acute Assessment and Plan: Chest pain has improved. Will continue higher dose metoprolol and isosorbide and other regimen for now. Still has significant dyspnea however which may be anginal as well. After long discussion with patient, she wishes to proceed and have PCI attempted to the diagonal branch. Continue to hold Xarelto. Continue enoxaparin (2) CAD (coronary artery disease): Code(s): I25.10 - Atherosclerotic heart disease of [place] coronary artery without angina pectoris Status: Acute Assessment and Plan: Plan as above (3) Hypertension: Qualifiers: Hypertension type: primary hypertension Qualified Code(s): I10 - Essential (primary) hypertension Code(s): I10 - Essential (primary) hypertension Status: Acute Assessment and Plan: At goal (4) History of pulmonary embolism: Code(s): Z86.711 - Personal history of pulmonary embolism Status: Acute Assessment and Plan: Holding oral anticoagulation but will use DVT prophylaxis dose in the interim (5) Chronic anticoagulation: Code(s): Z79.01 - terminal operations manager (current) use of anticoagulants Status: Acute Assessment and Plan: On Xarelto but will currently on hold for angiogram (6) Hypokalemia: Code(s): E87.6 - Hypokalemia Status: Acute Assessment and Plan: Potassium is low normal. Will give 40 mEq KCL x1 Subjective Date/time seen: 09/11/23 11:08 Interval history: Medical record: Chest pain Narrative: ?this is an 82-year-old female with past medical history significant for coronary artery disease, fibromyalgia, hypothyroidism, type 2 diabetes mellitus, GERD, pulmonary embolism. patient comes to the emergency room instructed by her industrial relations manager due to chest pain, recent left heart catheterization? was significant for blockage. Date of service 09/11/2023: No chest pain. Still has some dyspnea with activity. Review of Systems Review of Systems: All systems reviewed & are unremarkable except as noted in HPI and below Constitutional: Constitutional: Reports no additional constitutional complaints and Denies excessive sweating Eyes: Eyes: Reports no additional eye complaints ENT: Reports Normal hearing present Cardiovascular: Cardiovascular: Reports chest pain and Denies dyspnea Respiratory: Respiratory: Denies dyspnea Gastrointestinal: Gastrointestinal: Denies abdominal pain Genitourinary: Genitourinary: Denies hematuria Musculoskeletal: Musculoskeletal: Denies back pain Integumentary/Breasts: Skin/Breast: Denies dry skin Neurologic: Reports Normal hearing present, Denies Abnormal speech present and Denies behavioral changes Psychiatric: Psychiatric: Denies anxiety and Denies behavioral changes Endocrine: Endocrine: Denies excessive sweating Hematologic/Lymphatic: Hematologic/Lymphatic: Denies easy bleeding Allergic/Immunologic: Allergic/Immunologic: Denies GI upset with certain foods Exam Narrative: Alert awake oriented. Appears stated age Const: General: comfortable and no acute distress HENMT: Face/Nose/Sinus: Normal nares present Mouth: Yes moist mucous membranes Eyes: General: appearance normal, both eyes and all related structures Sclera: sclerae normal Neck: Neck: supple and no JVD Carotids: no bruits Chest: Other: No reproducible chest wall pain to palpation Resp: Effort & Inspection: normal respiratory effort Auscultation: clear to auscultation bilaterally Cardio: Rate: regular rate Rhythm: regular rhythm GI: Inspection: non-distended Skin: General skin exam: normal color Neuro: Cranial nerves: Yes Normal hearing present Speech: normal speech and No Abnormal speech present Sensory Exam: normal sensation Extrem: General: normal to inspection Psych: Mental St
[2023-09-11 12:31] LABS: Glucose Point of Care 161 mg/dl (65-105)
[2023-09-11] MEDS: POTASSIUM CHLORIDE 20 MEQ ER TABLET 40 MEQ PO (13:25)
[2023-09-11 16:17] LABS: Glucose Point of Care 123 mg/dl (65-105)
[2023-09-11 20:46] LABS: Glucose Point of Care 144 mg/dl (65-105)
[2023-09-11] MEDS: ALBUTEROL SULFATE (*SP) AEROSOL 1 PUFF 2 PUFF INHALATION (21:01)
--- NOTE | 2023-09-11 22:41 | PC.NURSE ---
On assessment, patient's left pupil appeared to be larger than the right pupil. A&O x3. No neurological deficits. Notified Juan Manuel RANDLE. Juan Manuel RANDLE stated she would evaluate.
[2023-09-12] VITALS (20 sets, daily range): BP systolic 115–131; BP diastolic 50–95; PULSE 80–88; RESP 18–20; TEMP 36.1–36.8; O2SAT 96–98
[2023-09-12 05:11] LABS: Basophils Absolute Auto 0.1 K/mm3 (0.0-0.1); Basophils Percent Auto 0.6 % (0.2-1.2); Eosinophils Absolute Auto 0.3 K/mm3 (0-0.3); Hematocrit 39.2 % (37.0-47.0); Hemoglobin 12.3 g/dL (12.0-15.0); Immature Granulocyte Absolute 0.03 K/mm3 (0.00-0.031); Immature Granulocyte Percent A 0.3 % (0-0.5); Lymphocytes Absolute Auto 4.03 K/mm3 (0.9-3.2); Lymphocytes Percent Auto 40.4 % (18.3-44.2); Mean Corpuscular HGB Conc 31.4 g/dl (32-36); Mean Corpuscular Volume 95.6 fl (80-100); Mean Platelet Volume 10.8 fl (7.4-10.4); Monocytes Absolute Auto 0.8 K/mm3 (0.1-0.6); Monocytes Percent Auto 7.8 % (2.6-8.5); Neutrophils Absolute Auto 4.8 K/mm3 (1.3-6.7); Neutrophils Percent Auto 47.9 % (45.5-73.1); Platelet Count Result 275 k/mm3 (150-375); Red Cell Distribution Width 14.4 % (11.5-14.5)
[2023-09-12 05:26] LABS: Alanine Aminotransferase 21 U/L (6-35); Albumin Level 3.7 g/dL (3.5-5.1); Alkaline Phosphatase 81 U/L (38-126); Anion Gap 7 mmol/L (8-16); Aspartate Amino Transferase 26 U/L (14-36); Bilirubin,Total 0.5 mg/dL (0.2-1.3); Blood Urea Nitrogen 13 mg/dL (7-17); Calcium 9.3 mg/dL (8.4-10.2); Carbon Dioxide 25 mmol/L (22-30); Chloride 109 mmol/L (98-107); Estimated CRCL calculation 56 ml/min; Estimated Glomerular Filt Rate > 60; Glucose 104 mg/dL (65-110); Potassium 3.9 mmol/L (3.4-5.0); Sodium 141 mmol/L (137-145)
[2023-09-12] MEDS: LEVOTHYROXINE SODIUM 150 MCG TABLET PO (05:37)
--- NOTE | 2023-09-12 07:12 | P.PNIM_ITS ---
Progress Note: A&P Assessment and Plan (1) Unstable angina pectoris: Code(s): I20.0 - Unstable angina Status: Acute (2) Chest pain: Qualifiers: Chest pain type: chest pain due to myocardial ischemia Ischemic chest pain type: unstable angina pectoris Qualified Code(s): I20.0 - Unstable angina Code(s): R07.9 - Chest pain, unspecified Status: Acute (3) Hypertension: Qualifiers: Hypertension type: primary hypertension Qualified Code(s): I10 - Essential (primary) hypertension Code(s): I10 - Essential (primary) hypertension Status: Acute (4) History of pulmonary embolism: Code(s): Z86.711 - Personal history of pulmonary embolism Status: Acute (5) Chronic anticoagulation: Code(s): Z79.01 - longterm (current) use of anticoagulants Status: Acute (6) CAD (coronary artery disease): Code(s): I25.10 - Atherosclerotic heart disease of [place] coronary artery without angina pectoris Status: Acute (7) Hypercoagulable state: Code(s): D68.59 - Other primary thrombophilia Status: Acute Plan Chest pain/Unstable angina Pectoris * serial troponins x3 q.6 hours Negative * EKG without ischemic changes q.6 hours SR * cardiology consulted * Treat with Imdur and increase BB * catheterization if continues and no relieve with medical management * Will need CC pending inpatient or O/P * continuous cardiac monitoring * HX pancreatitis/Lipase WNL * Holding Xarelto will place on Lovenox 1mg/kg for possible cath patient with HX of DVT's and PE 09/10: * Angina improved but still moderate dyspnea * patient would like to proceed with PCI to diagonal branch Hypercoagulability with HX of DVT and PE * Xarelto on hold for possible cath * Lovenox 1mg/kg for coverage * recommend O/P oil field roustabout HTN * Resume home medications * BP per unit protocol * Cardiology added Imdur and increased her BB Diabetes * Accu-Cheks a.c. HS * sliding scale insulin * hold oral diabetic Metformin * resume patient's home long-acting * lipid panel pending * Diabetic diet * consult to dietitian * encourage lifestyle modifications and weight loss * Optimize Drake inhibitors and statins. * Watch for hypoglycemia/hypoglycemic protocol ordered Code status: Full code per patient DVT prophylaxis: Lovenox Stress ulcer prophylaxis: Protonix 40 daily PT/OT notes: Disposition: Patient admitted to the cardiac unit for further treatment of unstable angina, cardiology recommends medical management patient would like to proceed with PCI scheduled for tomorrow 09/12. Time Spent With Patient Time with patient: 15 - 25 minutes Subjective Date/time seen: 09/12/23 07:12 Interval history: Medical record: Chest pain Narrative: ?this is an 82-year-old female with past medical history significant for coronary artery disease, fibromyalgia, hypothyroidism, type 2 diabetes mellitus, GERD, pulmonary embolism. patient comes to the emergency room instructed by her pipe organ technician due to chest pain, recent left heart catheterization? was significant for blockage.? Patient complaints of shortness of with minimal exertion and chest pain localized to the retrosternal area feels like 10 books on top of my chest , denies any lightheadedness, syncope near syncope, no palpitations, has had orthopnea and PND no leg swelling, no pedal swelling, has a cough nonproductive, no fevers no rigors no chills.? While at the office
--- NOTE | 2023-09-12 07:12 | PM.IMPN ---
Progress Note: A&P Assessment and Plan (1) Unstable angina pectoris: Code(s): I20.0 - Unstable angina Status: Acute (2) Chest pain: Qualifiers: Chest pain type: chest pain due to myocardial ischemia Ischemic chest pain type: unstable angina pectoris Qualified Code(s): I20.0 - Unstable angina Code(s): R07.9 - Chest pain, unspecified Status: Acute (3) Hypertension: Qualifiers: Hypertension type: primary hypertension Qualified Code(s): I10 - Essential (primary) hypertension Code(s): I10 - Essential (primary) hypertension Status: Acute (4) History of pulmonary embolism: Code(s): Z86.711 - Personal history of pulmonary embolism Status: Acute (5) Chronic anticoagulation: Code(s): Z79.01 - longterm (current) use of anticoagulants Status: Acute (6) CAD (coronary artery disease): Code(s): I25.10 - Atherosclerotic heart disease of [place] coronary artery without angina pectoris Status: Acute (7) Hypercoagulable state: Code(s): D68.59 - Other primary thrombophilia Status: Acute Plan Chest pain/Unstable angina Pectoris serial troponins x3 q.6 hours Negative EKG without ischemic changes q.6 hours SR cardiology consulted Treat with Imdur and increase BB catheterization if continues and no relieve with medical management Will need CC pending inpatient or O/P continuous cardiac monitoring HX pancreatitis/Lipase WNL Holding Xarelto will place on Lovenox 1mg/kg for possible cath patient with HX of DVT's and PE 09/10: Angina improved but still moderate dyspnea patient would like to proceed with PCI to diagonal branch Hypercoagulability with HX of DVT and PE Xarelto on hold for possible cath Lovenox 1mg/kg for coverage recommend O/P computer repair instructor HTN Resume home medications BP per unit protocol Cardiology added Imdur and increased her BB Diabetes Accu-Cheks a.c. HS sliding scale insulin hold oral diabetic Metformin resume patient's home long-acting lipid panel pending Diabetic diet consult to dietitian encourage lifestyle modifications and weight loss Optimize Drake inhibitors and statins. Watch for hypoglycemia/hypoglycemic protocol ordered Code status: Full code per patient DVT prophylaxis: Lovenox Stress ulcer prophylaxis: Protonix 40 daily PT/OT notes: Disposition: Patient admitted to the cardiac unit for further treatment of unstable angina, cardiology recommends medical management patient would like to proceed with PCI scheduled for tomorrow 09/12. Time Spent With Patient Time with patient: 15 - 25 minutes Subjective Date/time seen: 09/12/23 07:12 Interval history: Medical record: Chest pain Narrative: ?this is an 82-year-old female with past medical history significant for coronary artery disease, fibromyalgia, hypothyroidism, type 2 diabetes mellitus, GERD, pulmonary embolism. patient comes to the emergency room instructed by her search engineer due to chest pain, recent left heart catheterization? was significant for blockage.? Patient complaints of shortness of with minimal exertion and chest pain localized to the retrosternal area feels like 10 books on top of my chest , denies any lightheadedness, syncope near syncope, no palpitations, has had orthopnea and PND no leg swelling, no pedal swelling, has a cough nonproductive, no fevers no rigors no chills.? While at the office patient receive nitroglycerin which took the pain away.? Preliminary workup has been essentially nonrevealing. 09/09: Patient currently denying CP states new medication helping. Will continue with medical management per cardiology plan is for cardiac cath either O/P or inpatient based on patient response to medication. 09/10: Patient denied any further chest pain but still with complaints of dyspnea worse with exertion. Per Cardiology notes patient would like to proceed wit
[2023-09-12] MEDS: ALBUTEROL SULFATE (*SP) AEROSOL 1 PUFF 2 PUFF INHALATION ×2 (08:24→20:36)
[2023-09-12] MEDS: FLUTICASONE/SALMETEROL 115-21 MCG INHALER 1 PUFF 2 PUFF INHALATION ×2 (08:24→20:36)
[2023-09-12 08:28] LABS: Glucose Point of Care 102 mg/dl (65-105)
[2023-09-12] MEDS: METOPROLOL SUCCINATE EXT REL 50 MG TABCR PO (09:28)
[2023-09-12] MEDS: ASPIRIN 81 MG CHEWABLE TABLET PO (09:29)
[2023-09-12] MEDS: MAGNESIUM OXIDE 200 MG TABLET PO (09:29)
[2023-09-12] MEDS: SPIRONOLACTONE 25 MG TABLET PO ×2 (09:29→16:30)
[2023-09-12] MEDS: PANTOPRAZOLE SOD SESQUIHYDRATE 20 MG TAB PO (09:29)
[2023-09-12] MEDS: ENOXAPARIN 100 MG/ML SYRINGE SUB-Q (09:29)
[2023-09-12] MEDS: ROSUVASTATIN 10 MG TABLET PO (09:29)
[2023-09-12] MEDS: ISOSORBIDE MONONITRATE 30 MG TAB.ER.24H PO (09:29)
--- NOTE | 2023-09-12 10:47 | PM.PNCARD ---
Progress Note: A&P Assessment and Plan (1) Unstable angina pectoris: Code(s): I20.0 - Unstable angina Status: Acute Assessment and Plan: Chest pain has improved. Will continue higher dose metoprolol and isosorbide and other regimen for now. Plan for coronary angiogram/PCI to diagonal tomorrow. NPO after midnight. After long discussion with patient, she wishes to proceed and have PCI attempted to the diagonal branch. Continue to hold Xarelto. Discontinue enoxaparin. (2) CAD (coronary artery disease): Code(s): I25.10 - Atherosclerotic heart disease of [place] coronary artery without angina pectoris Status: Acute Assessment and Plan: Plan as above (3) Hypertension: Qualifiers: Hypertension type: primary hypertension Qualified Code(s): I10 - Essential (primary) hypertension Code(s): I10 - Essential (primary) hypertension Status: Acute Assessment and Plan: At goal (4) History of pulmonary embolism: Code(s): Z86.711 - Personal history of pulmonary embolism Status: Acute Assessment and Plan: Holding oral anticoagulation (5) Chronic anticoagulation: Code(s): Z79.01 - telephone order clerk room service (current) use of anticoagulants Status: Acute Assessment and Plan: On Xarelto but will currently on hold for angiogram (6) Hypokalemia: Code(s): E87.6 - Hypokalemia Status: Acute Assessment and Plan: Replaced Subjective Date/time seen: 09/12/23 10:47 Interval history: Medical record: Chest pain Narrative: ?this is an 82-year-old female with past medical history significant for coronary artery disease, fibromyalgia, hypothyroidism, type 2 diabetes mellitus, GERD, pulmonary embolism. patient comes to the emergency room instructed by her fire sprinkler inspector due to chest pain, recent left heart catheterization? was significant for blockage. Date of service 09/12/2023: No chest pain at rest but still having some discomfort when active and walking to the bathroom. Associated shortness of breath. Review of Systems Review of Systems: All systems reviewed & are unremarkable except as noted in HPI and below Constitutional: Constitutional: Reports no additional constitutional complaints and Denies excessive sweating Eyes: Eyes: Reports no additional eye complaints ENT: Reports Normal hearing present Cardiovascular: Cardiovascular: Reports chest pain and Denies dyspnea Respiratory: Respiratory: Denies dyspnea Gastrointestinal: Gastrointestinal: Denies abdominal pain Genitourinary: Genitourinary: Denies hematuria Musculoskeletal: Musculoskeletal: Denies back pain Integumentary/Breasts: Skin/Breast: Denies dry skin Neurologic: Reports Normal hearing present, Denies Abnormal speech present and Denies behavioral changes Psychiatric: Psychiatric: Denies anxiety and Denies behavioral changes Endocrine: Endocrine: Denies excessive sweating Hematologic/Lymphatic: Hematologic/Lymphatic: Denies easy bleeding Allergic/Immunologic: Allergic/Immunologic: Denies GI upset with certain foods Exam Narrative: Alert awake oriented. Appears stated age Const: General: comfortable and no acute distress HENMT: Face/Nose/Sinus: Normal nares present Mouth: Yes moist mucous membranes Eyes: General: appearance normal, both eyes and all related structures Sclera: sclerae normal Neck: Neck: supple and no JVD Carotids: no bruits Chest: Other: No reproducible chest wall pain to palpation Resp: Effort & Inspection: normal respiratory effort Auscultation: clear to auscultation bilaterally Cardio: Rate: regular rate Rhythm: regular rhythm GI: Inspection: non-distended Skin: General skin exam: normal color Neuro: Cranial nerves: Yes Normal hearing present Speech: normal speech and No Abnormal speech present Sensory Exam: normal sensation Extrem: General: normal to inspection Psych: Mental Sta
[2023-09-12 13:09] LABS: Glucose Point of Care 166 mg/dl (65-105)
[2023-09-12 16:32] LABS: Glucose Point of Care 142 mg/dl (65-105)
[2023-09-12 20:27] LABS: Glucose Point of Care 144 mg/dl (65-105)
[2023-09-13] VITALS (25 sets, daily range): BP systolic 105–134; BP diastolic 46–72; PULSE 64–96; RESP 14–22; TEMP 36.2–36.6; O2SAT 94–98
[2023-09-13 05:14] LABS: Basophils Absolute Auto 0.1 K/mm3 (0.0-0.1); Basophils Percent Auto 0.6 % (0.2-1.2); Eosinophils Absolute Auto 0.3 K/mm3 (0-0.3); Hematocrit 39.5 % (37.0-47.0); Hemoglobin 12.3 g/dL (12.0-15.0); Immature Granulocyte Absolute 0.02 K/mm3 (0.00-0.031); Immature Granulocyte Percent A 0.2 % (0-0.5); Lymphocytes Absolute Auto 3.77 K/mm3 (0.9-3.2); Lymphocytes Percent Auto 35.4 % (18.3-44.2); Mean Corpuscular HGB Conc 31.1 g/dl (32-36); Mean Corpuscular Hemoglobin 29.8 pg (26-34); Mean Corpuscular Volume 95.6 fl (80-100); Mean Platelet Volume 10.8 fl (7.4-10.4); Monocytes Absolute Auto 0.8 K/mm3 (0.1-0.6); Monocytes Percent Auto 7.8 % (2.6-8.5); Neutrophils Absolute Auto 5.7 K/mm3 (1.3-6.7); Platelet Count Result 279 k/mm3 (150-375); Red Blood Count 4.13 M/mm3 (4.2-5.4); Red Cell Distribution Width 14.6 % (11.5-14.5); White Blood Count 10.7 K/mm3 (4.5-10.0)
[2023-09-13 05:31] LABS: Alanine Aminotransferase 26 U/L (6-35); Albumin Level 3.7 g/dL (3.5-5.1); Alkaline Phosphatase 80 U/L (38-126); Anion Gap 3 mmol/L (8-16); Aspartate Amino Transferase 31 U/L (14-36); Bilirubin,Total 0.4 mg/dL (0.2-1.3); Blood Urea Nitrogen 12 mg/dL (7-17); Calcium 9.2 mg/dL (8.4-10.2); Carbon Dioxide 29 mmol/L (22-30); Chloride 109 mmol/L (98-107); Estimated CRCL calculation 56 ml/min; Estimated Glomerular Filt Rate > 60; Glucose 103 mg/dL (65-110); Potassium 3.9 mmol/L (3.4-5.0); Sodium 141 mmol/L (137-145)
[2023-09-13] MEDS: LEVOTHYROXINE SODIUM 150 MCG TABLET PO (05:38)
[2023-09-13 09:14] LABS: Glucose Point of Care 119 mg/dl (65-105)
[2023-09-13] MEDS: ASPIRIN 81 MG CHEWABLE TABLET PO (09:17)
[2023-09-13] MEDS: METOPROLOL SUCCINATE EXT REL 50 MG TABCR PO (09:17)
[2023-09-13] MEDS: ROSUVASTATIN 10 MG TABLET PO (09:17)
[2023-09-13] MEDS: PANTOPRAZOLE SOD SESQUIHYDRATE 20 MG TAB PO (09:17)
[2023-09-13] MEDS: ISOSORBIDE MONONITRATE 30 MG TAB.ER.24H PO (09:18)
--- NOTE | 2023-09-13 09:23 | P.PNIM_ITS ---
Progress Note: A&P Assessment and Plan (1) Unstable angina pectoris: Code(s): I20.0 - Unstable angina Status: Acute (2) Chest pain: Qualifiers: Chest pain type: chest pain due to myocardial ischemia Ischemic chest pain type: unstable angina pectoris Qualified Code(s): I20.0 - Unstable angina Code(s): R07.9 - Chest pain, unspecified Status: Acute (3) Hypertension: Qualifiers: Hypertension type: primary hypertension Qualified Code(s): I10 - Essential (primary) hypertension Code(s): I10 - Essential (primary) hypertension Status: Acute (4) History of pulmonary embolism: Code(s): Z86.711 - Personal history of pulmonary embolism Status: Acute (5) Chronic anticoagulation: Code(s): Z79.01 - [facility] (current) use of anticoagulants Status: Acute (6) CAD (coronary artery disease): Code(s): I25.10 - Atherosclerotic heart disease of [place] coronary artery without angina pectoris Status: Acute (7) Hypercoagulable state: Code(s): D68.59 - Other primary thrombophilia Status: Acute Plan Chest pain/Unstable angina Pectoris * serial troponins x3 q.6 hours Negative * EKG without ischemic changes q.6 hours SR * cardiology consulted * Treat with Imdur and increase BB * catheterization if continues and no relieve with medical management * Will need CC pending inpatient or O/P * continuous cardiac monitoring * HX pancreatitis/Lipase WNL * Holding Xarelto will place on Lovenox 1mg/kg for possible cath patient with HX of DVT's and PE 09/10: * Angina improved but still moderate dyspnea * patient would like to proceed with PCI to diagonal branch 09/12: * Successful PCI of proximal-mid diagonal * D/C on plavix, Xarelto, ASA 1 month then just Plavix and Xarelto Hypercoagulability with HX of DVT and PE * Xarelto on hold for possible cath * Lovenox 1mg/kg for coverage * recommend O/P aircraft assembler HTN * Resume home medications * BP per unit protocol * Cardiology added Imdur and increased her BB Diabetes * Accu-Cheks a.c. HS * sliding scale insulin * hold oral diabetic Metformin * resume patient's home long-acting * lipid panel pending * Diabetic diet * consult to dietitian * encourage lifestyle modifications and weight loss * Optimize Drake inhibitors and statins. * Watch for hypoglycemia/hypoglycemic protocol ordered Code status: Full code per patient DVT prophylaxis: Lovenox switched back to Xarelto Stress ulcer prophylaxis: Protonix 40 daily PT/OT notes: Disposition: Patient admitted to the cardiac unit for further treatment of unstable angina, Underwent Cardiac sarah with successful PCI should discharge home tomorrow if no events overnight. Time Spent With Patient Time with patient: 15 - 25 minutes Subjective Date/time seen: 09/13/23 09:23 Interval history: Medical record: Chest pain Narrative: ?this is an 82-year-old female with past medical history significant for coronary artery disease, fibromyalgia, hypothyroidism, type 2 diabetes mellitus, GERD, pulmonary embolism. patient comes to the emergency room instructed by her cofounder due to chest pain, recent left heart catheterization? was significant for blockage.? Patient complaints of shortness of with minimal exertion and chest pain localized to the retrosternal area feels like 10 books on top of my chest , denies any lightheadedness, syncope near syncope, no palpitations,
--- NOTE | 2023-09-13 09:23 | PM.IMPN ---
Progress Note: A&P Assessment and Plan (1) Unstable angina pectoris: Code(s): I20.0 - Unstable angina Status: Acute (2) Chest pain: Qualifiers: Chest pain type: chest pain due to myocardial ischemia Ischemic chest pain type: unstable angina pectoris Qualified Code(s): I20.0 - Unstable angina Code(s): R07.9 - Chest pain, unspecified Status: Acute (3) Hypertension: Qualifiers: Hypertension type: primary hypertension Qualified Code(s): I10 - Essential (primary) hypertension Code(s): I10 - Essential (primary) hypertension Status: Acute (4) History of pulmonary embolism: Code(s): Z86.711 - Personal history of pulmonary embolism Status: Acute (5) Chronic anticoagulation: Code(s): Z79.01 - MCFP (current) use of anticoagulants Status: Acute (6) CAD (coronary artery disease): Code(s): I25.10 - Atherosclerotic heart disease of [place] coronary artery without angina pectoris Status: Acute (7) Hypercoagulable state: Code(s): D68.59 - Other primary thrombophilia Status: Acute Plan Chest pain/Unstable angina Pectoris serial troponins x3 q.6 hours Negative EKG without ischemic changes q.6 hours SR cardiology consulted Treat with Imdur and increase BB catheterization if continues and no relieve with medical management Will need CC pending inpatient or O/P continuous cardiac monitoring HX pancreatitis/Lipase WNL Holding Xarelto will place on Lovenox 1mg/kg for possible cath patient with HX of DVT's and PE 09/10: Angina improved but still moderate dyspnea patient would like to proceed with PCI to diagonal branch 09/12: Successful PCI of proximal-mid diagonal D/C on plavix, Xarelto, ASA 1 month then just Plavix and Xarelto Hypercoagulability with HX of DVT and PE Xarelto on hold for possible cath Lovenox 1mg/kg for coverage recommend 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 HS sliding scale insulin hold oral diabetic Metformin resume patient's home long-acting lipid panel pending Diabetic diet consult to dietitian encourage lifestyle modifications and weight loss Optimize Drake inhibitors and statins. Watch for hypoglycemia/hypoglycemic protocol ordered Code status: Full code per patient DVT prophylaxis: Lovenox switched back to Xarelto Stress ulcer prophylaxis: Protonix 40 daily PT/OT notes: Disposition: Patient admitted to the cardiac unit for further treatment of unstable angina, Underwent Cardiac sarah with successful PCI should discharge home tomorrow if no events overnight. Time Spent With Patient Time with patient: 15 - 25 minutes Subjective Date/time seen: 09/13/23 09:23 Interval history: Medical record: Chest pain Narrative: ?this is an 82-year-old female with past medical history significant for coronary artery disease, fibromyalgia, hypothyroidism, type 2 diabetes mellitus, GERD, pulmonary embolism. 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 was significant for blockage.? Patient complaints of shortness of with minimal exertion and chest pain localized to the retrosternal area feels like 10 books on top of my chest , denies any lightheadedness, syncope near syncope, no palpitations, has had orthopnea and PND no leg swelling, no pedal swelling, has a cough nonproductive, no fevers no rigors no chills.? While at the office patient receive nitroglycerin which took the pain away.? Preliminary workup has been essentially nonrevealing. 09/09: Patient currently denying CP states new medication helping. Will continue with medical management per cardiology plan is for cardiac cath either O/P or inpatient based on patient response to medication. 09/10: Patient denied an
--- NOTE | 2023-09-13 09:52 | WPDMODSED ---
Moderate Sedation Note-Pt Data Patient Data Diagnosis: Unstable angina Present Complaint: Unstable angina Procedure to be performed/Plan: PCI to Diagonal Allergies Allergy/AdvReac Type Severity Reaction Status Date / Time Penicillins Allergy Unknown Hives Verified 09/09/23 15:21 montelukast AdvReac Intermediate Hallucinating Verified 09/09/23 15:21 suicidial ideation morphine AdvReac Hallucinati Verified 09/09/23 15:21 ng Home Medications Medication Instructions Recorded Confirmed Type cholecalciferol (vitamin D3) 100 4,000 unit PO DAILY 05/16/19 09/09/23 History mcg (4,000 unit) capsule multivitamin,[id number] 1 tablet PO BID 05/16/19 09/09/23 History (Complete Multivitamin tablet) pantoprazole 20 mg tablet,delayed 20 mg PO QAM 4 weeks #30 tabs 11/08/22 09/09/23 Rx release arginine HCl (L-arginine) 1,000 mg 1,000 mg PO . daily 11/11/22 09/09/23 History tablet levothyroxine 150 mcg tablet 150 mcg PO DAILY #90 tabs 11/30/22 09/09/23 Rx (Synthroid) fluticasone 250 mcg-salmeterol 50 1 inh inhalation BID #60 ea 12/27/22 09/09/23 Rx mcg/dose blistr powdr for inhalation (Advair Diskus) spironolactone 25 mg tablet 25 mg PO BID #60 tabs 02/28/23 09/09/23 Rx magnesium malate, chelate 250 mg PO . daily #180 caps 05/18/23 09/09/23 Rx rivaroxaban 20 mg tablet (Xarelto) 20 mg PO QAM #30 tabs 07/04/23 09/09/23 Rx albuterol sulfate 90 mcg/actuation 2 puff inhalation Q4H PRN 07/18/23 09/09/23 Rx aerosol inhaler (Proventil HFA) Shortness Of Breath #18 grams metformin 500 mg tablet,extended 500 mg PO BID #60 tabs 07/19/23 09/09/23 Rx release 24 hr aspirin 81 mg chewable tablet 81 mg PO DAILY 07/20/23 09/09/23 History coQ10 (ubiquinol) 100 mg capsule 100 mg PO DAILY 07/20/23 09/09/23 History metoprolol succinate 25 mg 37.5 mg PO DAILY 07/20/23 09/09/23 History tablet,extended release 24 hr Current Medications: Active Medications Acetaminophen (Acetaminophen 500 Mg Tablet) 1,000 mg PO Q6H PRN PRN Reason: Mild Pain (1-3) or Fever Last Admin: 09/10/23 21:48 Dose: 1,000 mg Albuterol (Albuterol Sulfate (*Sp) Aerosol 1 Puff) 2 puff INHALATION Q4H PRN PRN Reason: Shortness Of Breath Last Admin: 09/12/23 20:36 Dose: 2 puff Aspirin (Aspirin 81 Mg Chewable Tablet) 81 mg PO DAILY [facility] Last Admin: 09/13/23 09:17 Dose: 81 mg Dextrose (Dextrose 50% 25 Gm/50 Ml Syringe) 12.5 gm IV PUSH PRN PRN; Protocol PRN Reason: Hypoglycemia Glucagon (Glucagon For Inj 1 Mg Vial) 1 mg IM PRN PRN; Protocol PRN Reason: Hypoglycemia Glucose (Glucose Oral Gel 15 Gm Of Glucse In 37.5 Gm Tube) 15 gm PO PRN PRN; Protocol PRN Reason: Hypoglycemia Dextrose (Dextrose 5% 1,000 Ml) 1,000 mls @ 100 mls/hr IVPB PRN PRN; Protocol PRN Reason: Hypoglycemia Insulin Aspart (Insulin Aspart (*Bkc) 100 Units/Ml) 2 - 5 units SUB-Q TIDWM [facility]; Protocol Last Admin: 09/12/23 16:30 Dose: Not Given Isosorbide Mononitrate (Isosorbide Mononitrate 30 Mg Tab.Er.24h) 30 mg PO [facility] Last Admin: 09/13/23 09:18 Dose: 30 mg Levothyroxine Sodium (Levothyroxine Sodium 150 Mcg Tablet) 150 mcg PO DAILY@0630 [facility] Last Admin: 09/13/23 05:38 Dose: 150 mcg Magnesium Oxide (Magnesium Oxide 200 Mg Tablet) 200 mg PO DAILY [facility] Last Admin: 09/12/23 09:29 Dose: 200 mg Metoprolol Succinate (Metoprolol Succinate Ext Rel 50 Mg Tabcr) [facility] Last Admin: 09/13/23 09:17 Dose: 50 mg Nitroglycerin (Nitroglycerin Sl 0.4 Mg Tablet) 0.4 mg SUBLINGUAL Q5MIN PRN PRN Reason: Chest Pain Pantoprazole Sodium (Pantoprazole Sod Sesquihydrate 20 Mg Tab) 20 mg PO [facility] Last Admin: 09/13/23 09:17 Dose: 20 mg Rivaroxaban (Rivaroxaban 20 Mg Tablet) 20 mg PO DAILY@1700 [facility] Last Admin: 09/10/23 09:10 Dose: Not Given Rosuvastatin Calcium (Rosuvastatin 10 Mg Tablet) 10 mg PO [facility] Last Admin: 09/13/23 09:17 Dose: 10 mg Fluticasone/Salmeterol (Fluticasone/Salmeterol 115-21 Mcg Inhaler 1 Puff) 2 puff
[2023-09-13 10:24] LABS: Cholesterol 146 mg/dL (0-200); HDL Direct 39 mg/dL; Triglycerides 103 mg/dL (<150)
[2023-09-13 10:38] LABS: LDL Cholesterol Direct 84 mg/dL
--- NOTE | 2023-09-13 10:40 | WPDCARDPROC ---
Cardiac Cath Procedure Note Date of procedure:: 09/13/23 Performing physician:: CATHETERIZATION LABORATORY REPORT Procedure Date: 09/13/2023 Cover Cutter: Crystal Gray M.D., [facility]? Referring Physician: Clarence Cabello M.D. ? Anesthesia: Versed and Fentanyl were ordered and given in my presence at 10:02, procedure ended at 10:29. Supervision of nurse monitored moderate sedation with Versed and Fentanyl was provided for 27 minutes. Total of Versed 1mg and Fentanyl 50mcg were administered by the Glass Cutting Machine Operator RN Geno Claudio. Pre-op Diagnosis: Unstable angina, coronary artery disease Post-op Diagnosis: Successful IVUS-guided PCI of the proximal-mid Diagonal with TATY x 1 (2.0mm x 22mm [place] TATY) Procedure(s): 1. Moderate sedation 2. Ultrasound-guided access of the right common femoral artery 3. Selective coronary angiography 4. IVUS of the Diagonal 5. PCI of the proximal-mid Diagonal with TATY x 1 6. Angioseal closure of the right common femoral artery Access Site: Right common femoral artery Brief History and Clinical Indications: Patient is an 82 year old female who is referred for PCI of Diagonal vessel for unstable angina. All risks, benefits and alternatives to left heart catheterization with or without percutaneous coronary intervention was discussed at length with the patient. Risk of complications including but not limited to bleeding, infection, arrhythmia, stroke, worsening kidney function, blood loss, groin hematoma, limb loss, emergency coronary artery bypass grafting, and even were discussed with the patient and all questions were answered. The patient understood and wished to proceed. Time out called, patient name, date of , medical record number, allergies, procedure performed, identify Cover Cutter, patient and staff member concurred with accurate data, procedure carried on. Findings: The first diagonal branch has a moderate stenosis in the proximal portion followed by a tandem lesion of 99%. Description of Procedure and PCI: Informed consent signed and placed in the chart. Patient transferred to experimental machining lab manager room. Prepped and draped in usual sterile fashion. 2% lidocaine in right groin area. Micropuncture needle used to access right common femoral artery with Seldinger technique under fluoroscopic and ultrasound guidance. J wire advanced, micropuncture cannula placed. Right iliofemoral angiogram performed, access confirmed and micropuncture cannula exchanged for 6-FR sheath. Angiomax used for anticoagulation. 6F CLS 3.0 guide catheter was used to intubate the left main. 0.014 [place] coronary wire was passed in to the distal diagonal branch. The lesion was pre-dilated with a 2.0 mm x 15 mm balloon inflated to high ANT. IC NTG 200mcg was administered. IVUS catheter advanced distal to the lesion, and reference measurements obtained. A 2.0 mm x 22mm Medtronic [place] TATY was successfully deployed into proximal-mid Diagonal. Intracoronary NTG 200mcg was administered. Follow-up angiograms showed an excellent result Coronary wire and guide-catheter were removed No angiographic complications identified. Post Operative Condition: Stable No significant blood loss Disposition: Floor Plan: The patient will be monitored in the recovery area. Patient was loaded with 600mg of Plavix prior to cath. Will have patient take triple therapy for 1 month (ASA, Plavix, Xarelto). After 1 month, stop the ASA and continue with Plavix and Xarelto. Continue aggressive medical therapy and risk factor modification. ? Crystal Gray M.D. Interventional Cardiology
--- NOTE | 2023-09-13 10:48 | PM.PNCARD ---
Progress Note: A&P Assessment and Plan (1) Unstable angina pectoris: Code(s): I20.0 - Unstable angina Status: Acute Assessment and Plan: Cardiac cath 09/12: Successful IVUS-guided PCI of the proximal-mid Diagonal with TATY x 1 (2.0mm x 22mm [place] TATY) Patient was loaded with 600mg of Plavix prior to cath. Will have patient take triple therapy for 1 month (ASA, Plavix, Xarelto). After 1 month, stop the ASA and continue with Plavix and Xarelto. Continue Toprol 50mg once daily. Continue Imdur 30mg once daily. Will increase Rosuvastatin to 40mg for high intensity dose. Anticipate discharge home tomorrow. Patient can resume Xarelto on 09/14. (2) CAD (coronary artery disease): Code(s): I25.10 - Atherosclerotic heart disease of [place] coronary artery without angina pectoris Status: Acute Assessment and Plan: Plan as above (3) Hypertension: Qualifiers: Hypertension type: primary hypertension Qualified Code(s): I10 - Essential (primary) hypertension Code(s): I10 - Essential (primary) hypertension Status: Acute Assessment and Plan: At goal (4) History of pulmonary embolism: Code(s): Z86.711 - Personal history of pulmonary embolism Status: Acute Assessment and Plan: Holding oral anticoagulation. Patient can resume Xarelto on 09/14. (5) Chronic anticoagulation: Code(s): Z79.01 - care home (current) use of anticoagulants Status: Acute Assessment and Plan: On Xarelto but currently holding for cardiac cath. Patient can resume Xarelto on 09/14. (6) Mixed hyperlipidemia: Code(s): E78.2 - Mixed hyperlipidemia Status: Acute Assessment and Plan: Will increase Rosuvastatin to 40mg for high intensity dose. Subjective Date/time seen: 09/13/23 10:48 Interval history: Reason for visit: Unstable angina HPI: Patient is an 82-year-old female patient of [place] who has a history of pulmonary embolism, atrial tachycardia as well as coronary disease.? She had a catheterization performed in July 2019 for showing a 99% stenosis in a diagonal branch.? Due to the diameter of the artery it was initially decided to try to treat this medically.? She was seen in the office yesterday and was still having ongoing symptoms.? Symptoms were occurring at rest and worsened with exertion.? Symptoms included chest pain described as an L4 foot slightly pressing on the anterior aspect of her chest that worsen with exertion.? It was associated with shortness of breath.? She also still has some occasional palpitations will last from min her so.? She denies any syncope, presyncope, paroxysmal nocturnal dyspnea, orthopnea, and edema.? In the office she was given 1 sublingual nitroglycerin which did seem to improve her symptoms.? Therefore plan was to have her come to the emergency department for rule out SC and to up titrate medications and possibly intervene upon the diagonal branch.? She states that she has had some recurrence of her chest discomfort this morning and last night but it is still much better than it was and has been over the past several weeks home. Date of service 09/10: No chest pain.? Still?has some dyspnea with activity. Date of service 09/11: No chest pain at rest but still having some discomfort when active and walking to the bathroom.? Associated shortness of breath. Date of service 09/12: Cath today. No chest pain at rest. Otherwise feeling well. Review of Systems Review of Systems: All systems reviewed & are unremarkable except as noted in HPI and below (HPI) Exam Const: General: comfortable and no acute distress HENMT: Mouth: Yes moist mucous membranes Eyes: General: appearance normal, both eyes and all related structures Sclera: sclerae normal Resp: Effort & Inspection: normal respiratory effort Cardio: Rate: regular rate Rhythm: regular rhythm Skin: General skin exam: normal color N
--- NOTE | 2023-09-13 11:16 | ECG_ITS ---
Measurements Intervals [place] Rate: 73 P: -15 [place]: 210 QRS: -13 QRSD: 85 T: -10 QT: 388 QTc: 430 Interpretive Statements SINUS RHYTHM WITH FIRST DEGREE AV BLOCK DELAYED PRECORDIAL R/S TRANSITION CONSIDER INFERIOR INFARCT, AGE INDETERMINATE COMPARED TO ECG 09/09/2023 21:38:18 ABNORMAL ECG FIRST DEGREE AV BLOCK NOW PRESENT Electronically Signed On 09-13-2023 12:54:19 CDT by Pato Aguirre D.O.
[2023-09-13] MEDS: SODIUM CHLORIDE 0.9% IV 1,000 ML 125 ML IV CONT (11:30)
[2023-09-13] MEDS: MAGNESIUM OXIDE 200 MG TABLET PO (12:23)
[2023-09-13] MEDS: SPIRONOLACTONE 25 MG TABLET PO ×2 (12:23→18:03)
[2023-09-13 12:31] LABS: Glucose Point of Care 137 mg/dl (65-105)
[2023-09-13 15:52] LABS: Glucose Point of Care 171 mg/dl (65-105)
[2023-09-13] MEDS: RIVAROXABAN 20 MG TABLET PO (18:03)
[2023-09-13] MEDS: ACETAMINOPHEN 500 MG TABLET 1000 MG PO (18:09)
[2023-09-13] MEDS: FLUTICASONE/SALMETEROL 115-21 MCG INHALER 1 PUFF 2 PUFF INHALATION (20:26)
[2023-09-13 21:44] LABS: Glucose Point of Care 140 mg/dl (65-105)
[2023-09-14] VITALS (12 sets, daily range): BP systolic 115–141; BP diastolic 56–71; PULSE 73–95; RESP 16–20; TEMP 36–36.3; O2SAT 96–97
[2023-09-14 05:03] LABS: Basophils Absolute Auto 0.1 K/mm3 (0.0-0.1); Basophils Percent Auto 0.5 % (0.2-1.2); Eosinophils Absolute Auto 0.4 K/mm3 (0-0.3); Eosinophils Percent Auto 3.4 % (0-4.4); Hematocrit 37.9 % (37.0-47.0); Hemoglobin 11.8 g/dL (12.0-15.0); Immature Granulocyte Absolute 0.02 K/mm3 (0.00-0.031); Immature Granulocyte Percent A 0.2 % (0-0.5); Lymphocytes Absolute Auto 3.22 K/mm3 (0.9-3.2); Lymphocytes Percent Auto 31.5 % (18.3-44.2); Mean Corpuscular HGB Conc 31.1 g/dl (32-36); Mean Corpuscular Hemoglobin 30.1 pg (26-34); Mean Corpuscular Volume 96.7 fl (80-100); Monocytes Absolute Auto 0.8 K/mm3 (0.1-0.6); Neutrophils Absolute Auto 5.8 K/mm3 (1.3-6.7); Neutrophils Percent Auto 56.4 % (45.5-73.1); Platelet Count Result 268 k/mm3 (150-375); Red Blood Count 3.92 M/mm3 (4.2-5.4); Red Cell Distribution Width 14.8 % (11.5-14.5); White Blood Count 10.2 K/mm3 (4.5-10.0)
[2023-09-14 05:08] LABS: Alanine Aminotransferase 29 U/L (6-35); Albumin Level 3.5 g/dL (3.5-5.1); Alkaline Phosphatase 73 U/L (38-126); Anion Gap 5 mmol/L (4-12); Aspartate Amino Transferase 36 U/L (14-36); Bilirubin,Total 0.4 mg/dL (0.2-1.3); Blood Urea Nitrogen 13 mg/dL (7-17); Calcium 8.8 mg/dL (8.4-10.2); Carbon Dioxide 25 mmol/L (22-30); Chloride 111 mmol/L (98-107); Estimated CRCL calculation 55 ml/min; Estimated Glomerular Filt Rate > 60; Glucose 106 mg/dL (65-110); Magnesium 2.2 mg/dL (1.6-2.3); Potassium 4.2 mmol/L (3.4-5.0); Sodium 141 mmol/L (137-145)
[2023-09-14] MEDS: LEVOTHYROXINE SODIUM 150 MCG TABLET PO (06:22)
[2023-09-14] MEDS: FLUTICASONE/SALMETEROL 115-21 MCG INHALER 1 PUFF 2 PUFF INHALATION (08:44)
[2023-09-14] MEDS: ASPIRIN 81 MG CHEWABLE TABLET PO (08:47)
[2023-09-14] MEDS: ISOSORBIDE MONONITRATE 30 MG TAB.ER.24H PO (08:48)
[2023-09-14] MEDS: SPIRONOLACTONE 25 MG TABLET PO (08:48)
[2023-09-14] MEDS: CLOPIDOGREL BISULFATE 75 MG TABLET PO (08:48)
[2023-09-14] MEDS: MAGNESIUM OXIDE 200 MG TABLET PO (08:48)
[2023-09-14] MEDS: PANTOPRAZOLE SOD SESQUIHYDRATE 20 MG TAB PO (08:48)
[2023-09-14] MEDS: ROSUVASTATIN 10 MG TABLET 40 MG PO (08:49)
[2023-09-14] MEDS: METOPROLOL SUCCINATE EXT REL 50 MG TABCR PO (08:49)
[2023-09-14] MEDS: ACETAMINOPHEN 500 MG TABLET 1000 MG PO (09:04)
--- NOTE | 2023-09-14 11:31 | PM.PNCARD ---
Progress Note: A&P Assessment and Plan (1) Unstable angina pectoris: Code(s): I20.0 - Unstable angina Status: Acute Assessment and Plan: Cardiac cath 09/12: Successful IVUS-guided PCI of the proximal-mid Diagonal with TATY x 1 (2.0mm x 22mm [place] TATY) Will have patient take triple therapy for 1 month (ASA, Plavix, Xarelto). After 1 month, stop the ASA and continue with Plavix and Xarelto. Continue Toprol 50mg once daily. Continue Imdur 30mg once daily. Continue Rosuvastatin to 40mg for high intensity dose. Discharge home today (2) CAD (coronary artery disease): Code(s): I25.10 - Atherosclerotic heart disease of [place] coronary artery without angina pectoris Status: Acute Assessment and Plan: Plan as above (3) Hypertension: Qualifiers: Hypertension type: primary hypertension Qualified Code(s): I10 - Essential (primary) hypertension Code(s): I10 - Essential (primary) hypertension Status: Acute Assessment and Plan: At goal (4) History of pulmonary embolism: Code(s): Z86.711 - Personal history of pulmonary embolism Status: Acute Assessment and Plan: Holding oral anticoagulation. 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 Patient can resume Xarelto on 09/14. (6) Mixed hyperlipidemia: Code(s): E78.2 - Mixed hyperlipidemia Status: Acute Assessment and Plan: Continue Rosuvastatin to 40mg for high intensity dose. Subjective Date/time seen: 09/14/23 11:31 Interval history: Reason for visit: Unstable angina HPI: Patient is an 82-year-old female patient of [place] who has a history of pulmonary embolism, atrial tachycardia as well as coronary disease.? She had a catheterization performed in July 2019 for showing a 99% stenosis in a diagonal branch.? Due to the diameter of the artery it was initially decided to try to treat this medically.? She was seen in the office yesterday and was still having ongoing symptoms.? Symptoms were occurring at rest and worsened with exertion.? Symptoms included chest pain described as an L4 foot slightly pressing on the anterior aspect of her chest that worsen with exertion.? It was associated with shortness of breath.? She also still has some occasional palpitations will last from min her so.? She denies any syncope, presyncope, paroxysmal nocturnal dyspnea, orthopnea, and edema.? In the office she was given 1 sublingual nitroglycerin which did seem to improve her symptoms.? Therefore plan was to have her come to the emergency department for rule out [place] and to up titrate medications and possibly intervene upon the diagonal branch.? She states that she has had some recurrence of her chest discomfort this morning and last night but it is still much better than it was and has been over the past several weeks home. Date of service 09/10: No chest pain.? Still?has some dyspnea with activity. Date of service 09/11: No chest pain at rest but still having some discomfort when active and walking to the bathroom.? Associated shortness of breath. Date of service 09/14/2023: Successful PCI to the diagonal branch yesterday. Feels good. Active. No chest pain. No shortness breath. Review of Systems Review of Systems: All systems reviewed & are unremarkable except as noted in HPI and below (HPI) Constitutional: Constitutional: Reports no additional constitutional complaints and Denies excessive sweating Eyes: Eyes: Reports no additional eye complaints ENT: Reports Normal hearing present Cardiovascular: Cardiovascular: Denies chest pain and Denies dyspnea Respiratory: Respiratory: Denies dyspnea Gastrointestinal: Gastrointestinal: Denies abdominal pain Genitourinary: Genitourinary: Denies hematuria Mus
[2023-09-14 11:38] LABS: Glucose Point of Care 158 mg/dl (65-105)
--- NOTE | 2023-09-14 12:30 | PM.DS ---
DS: Admitting Diagnosis Discharge Date 09/14/23 Admitting Diagnosis Chest pain DS: Discharge Diagnosis Discharge Diagnosis (1) Unstable angina pectoris: Code(s): I20.0 - Unstable angina Status: Acute (2) Chest pain: Qualifiers: Chest pain type: chest pain due to myocardial ischemia Ischemic chest pain type: unstable angina pectoris Qualified Code(s): I20.0 - Unstable angina Code(s): R07.9 - Chest pain, unspecified Status: Acute (3) Hypertension: Qualifiers: Hypertension type: primary hypertension Qualified Code(s): I10 - Essential (primary) hypertension Code(s): I10 - Essential (primary) hypertension Status: Acute (4) History of pulmonary embolism: Code(s): Z86.711 - Personal history of pulmonary embolism Status: Acute (5) Chronic anticoagulation: Code(s): Z79.01 - 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 Patient had a recent left heart catheterization with significant blockage. Patient described her pain as feeling as if 10 blocks were sitting on her chest. She had minimal shortness of breath associated with this. She was given nitroglycerin in the ED which improved her symptoms. Bottom Buffer consulted and recommended PCI. Patient underwent cardiac catheterization on 09/13/2023. Patient tolerated her procedure well. She was started on triple therapy of anticoagulation with ASA, Plavix and Xarelto for 1 month. After 1 month she will stop the ASA. Plan to continue Toprol, Imdur and Rosuvastatin as an outpatient. Her labs and vital signs are stable she is medically clear for discharge at this time. Time Spent with Patient Time attestation: Total time spent providing and/or coordinating discharge services: Exam Narrative: GENERAL: Comfortable, no acute distress HENMT: moist mucous membranes EYES: EOM intact b/l NECK: no lymphadenopathy RESPIRATORY: clear to auscultation, no increased respiratory effort CARDIO: Regular rate and rhythm GI: soft, nontender, bowel sounds present SKIN/EXTREMITIES: no rashes, no edema, no redness or tenderness NEURO: PROM intact, answers questions appropriately, A&O x4 DS: Data Data Completed and Pending Labs on day of discharge: Labs from last 24 hours 09/14/23 09/14/23 09/13/23 11:27 04:08 20:44 WBC 10.2 H RBC 3.92 L Hgb 11.8 L Hct 37.9 MCV 96.7 MCH 30.1 MCHC 31.1 L RDW 14.8 H Plt Count 268 MPV 11.0 H Immature Gran % (Auto) 0.2 Neut % (Auto) 56.4 Lymph % (Auto) 31.5 Door % (Auto) 8.0 Eos % (Auto) 3.4 Baso % (Auto) 0.5 Lymph # (Auto) 3.22 H Door # (Auto) 0.8 H Eos # (Auto) 0.4 H Baso # (Auto) 0.1 Abs Immat Gran (auto) 0.02 Absolute Neuts (auto) 5.8 Absolute Nucleated RBC 0.000 Nucleated RBC % 0.0 Sodium 141 Potassium 4.2 Chloride 111 H Carbon Dioxide 25 Anion Gap 5 L BUN 13 Creatinine 0.80 Estim Creat Clear Calc 55 Estimated GFR > 60 Glucose 106 POC Capillary Glucose 158 H 140 H Calcium 8.8 Magnesium 2.2 Total Bilirubin 0.4 AST 36 ALT 29 Alkaline Phosphatase 73 Total Protein 7.0 Albumin 3.5 09/13/23 09/13/23 15:43 12:06 WBC RBC Hgb Hct MCV MCH MCHC RDW Plt Count MPV Immature Gran % (Auto) Neut % (Auto) Lymph % (Auto) Door % (Auto) Eos % (Auto) Baso % (Auto) Lymph
== END 2023-09-14 15:08 | disposition home or self-care (01) ==
LOC: ANHED 18:52 → ANHIMU 22:03
PROVIDERS: Internal Medicine; Nurse Practitioner Family; Preventive Medicine Aerospace Medicine; Admitting Provider Internal Medicine; Emergency Provider Emergency Medicine; PCP Family Medicine; Visit Provider Family Medicine
DX: I25.110 Atherosclerotic heart disease of native coronary artery with unstable angina pectoris (principal); I10 Essential (primary) hypertension; I48.91 Unspecified atrial fibrillation; R94.31 Abnormal electrocardiogram [ECG] [EKG]; F41.9 Anxiety disorder, unspecified; E87.6 Hypokalemia; F32.A Depression, unspecified; M79.7 Fibromyalgia; E11.9 Type 2 diabetes mellitus without complications; D68.59 Other primary thrombophilia; K21.9 Gastro-esophageal reflux disease without esophagitis; E03.9 Hypothyroidism, unspecified; K58.0 Irritable bowel syndrome with diarrhea; J45.40 Moderate persistent asthma, uncomplicated; E78.2 Mixed hyperlipidemia; E66.9 Obesity, unspecified; Z68.37 Body mass index [BMI] 37.0-37.9, adult; Z86.711 Personal history of pulmonary embolism; Z86.718 Personal history of other venous thrombosis and embolism; Z79.01 Long term (current) use of anticoagulants; Z79.82 Long term (current) use of aspirin; Z79.51 Long term (current) use of inhaled steroids; Z79.84 Long term (current) use of oral hypoglycemic drugs; Z79.899 Other long term (current) drug therapy
CPT/HCPCS: 36415; 71046; 80053; 80061; 82948; 83690; 83735; 83880; 84484; 85025; 85610; 85730; 92978; 93005; 94640; 96372; 96374; 99285; A9270; C1725; C1753; C1760; C1769; C1874; C1887; C1894; C9600; G0269; G0378; J0583; J1644; J1650; J2250; J2305; J2405; J3010; J7030; J7040

== ENCOUNTER 2024-04-19 14:38 | Inpatient (IN) | payer MEDICARE, SELFPAY ==
[2024-04-19] VITALS (9 sets, daily range): BP systolic 120–143; BP diastolic 68–95; PULSE 79–105; RESP 12–20; TEMP 36.5; O2SAT 95–98
--- NOTE | ~2024-04-19 | CT_ITS ---
CTA chest PE protocol Ordering provider: Nhi Kan MD History: 83 years Female with . hx of PE, SOB, tachy, . Comparison: May 10, 2023 Technique: CT angiogram chest was performed following timed intravenous injection of contrast. Thin s lice axial images and reformatted coronal images were obtained. Three dimensional reformatted images of the chest were also obtained using a [employer] workstation. . Automated exposure control and iterati ve reconstruction technique were employed. The dose-length product was 644.26 mGy-cm. Findings: PULMONARY ARTERIES: No pulmonary embolus. VISUALIZED THORACIC INLET: Normal. MEDIASTINUM: Aorta/coronary arteries: Mild atheromatous disease. Heart/other: The heart is slightly enlarged. Lymph nodes: No mediastinal or hilar adenopathy. LUNGS: Multiple focal densities are seen in the right upper, middle and lower lobe and left lower lobe which may be focal pneumonia.. The left lower lobe density is most likely a nodule and measures 1.[address] follow-up is advised. No pulmonary masses. No effusions. No pneumothorax. VISUALIZED UPPER ABDOMEN: Soft tissue density seen in the left kidney upper pole measuring 1 cm. Foll ow-up in 3 months is advised. Small sliding hiatus hernia. Otherwise, the visualized upper abdomen is normal. MUSCULOSKELETAL: Soft tissues: The superficial soft tissues are normal. Bones: Age appropriate degenerative changes of the spine. IMPRESSION: 1. No pulmonary embolism. 2. Multiple patchy opacities in the right upper, lower and left lower lobes which may indicate focal pneumonia. Follow-up to resolution is advised. Nodule in the left lower lobe measuring 1.1 cm. 3 mo nths follow-up is advised. 3. Soft tissue density in the left kidney. 3 months follow-up advised. 4. Small sliding hiatus hernia. Reviewed, dictated and finalized at location A. IMPRESSION: 1. No pulmonary embolism. 2. Multiple patchy opacities in the right upper, lower and left lower lobes wh ich may indicate focal pneumonia. Follow-up to resolution is advised. Nodule i n the left lower lobe measuring 1.1 cm. 3 months follow-up is advised. 3. Soft tissue density in the left kidney. 3 months follow-up advised. 4. Small sliding hiatus hernia.
--- NOTE | ~2024-04-19 | XR_ITS ---
EXAMINATION: XR chest 2V DATE: 04/19/2024 16:11 INDICATION: Productive cough TECHNIQUE: PA and lateral views of the chest were obtained. COMPARISON: Chest radiograph dated 09/09/[address] dated 05/10/2023 FINDINGS: Mild linear discoid atelectasis/scarring at the right middle lobe. Small wedge-shaped opacity at the lateral right midlung. No other airspace opacities, pulmonary edema, pleural effusion or pneumothorax . The cardiomediastinal silhouette is normal. Moderate thoracic spondylosis. IMPRESSION: 1. Small wedge-shaped opacity at the lateral right midlung zone which could represent atelectasis or pneumonia. Reviewed, dictated and finalized at location A. IMPRESSION: 1. Small wedge-shaped opacity at the lateral right midlung zone which could rep resent atelectasis or pneumonia.
--- NOTE | 2024-04-19 15:48 | ED.URI ---
HPI - URI/Sore Throat General Chief Complaint: Upper Respiratory Infection <Tamanna Sandhu PA-C - Last Filed: 04/20/24 12:29> Stated Complaint: cough, congestion <Tamanna Sandhu PA-C - Last Filed: 04/20/24 12:29> Time Seen by Provider: 04/19/24 15:48 <Tamanna Sandhu PA-C - Last Filed: 04/20/24 12:29> Focused HPI: This is a 83 year old female that presents to the ER for productive cough ongoing over the last several weeks. Reports fatigue, diarrhea, anorexia, elevated heart rate, shortness of breath, chills. Reports crampy abdominal pain. Finished Cefdinir with little relief. Denies fevers, dysuria. GENERAL: Well-appearing, well-nourished, and in no acute distress. HEAD: Normocephalic, atraumatic. CHEST: Clear to auscultation. ?No respiratory distress. HEART: Regular rate and rhythm.? NEURO: ?Alert and oriented x3. Patient screened in triage and initial orders placed.? ?Additional care and disposition to be based upon?diagnostic testing and treatment. <Tamanna Sandhu PA-C - Last Filed: 04/20/24 12:29> History of Present Illness HPI Narrative: 83-year-old female presenting with cough and shortness of breath. States that she has been coughing for the last several weeks. Her PCP placed her on cefdinir last week which she has completed but she continues to cough. States that she also feels very weak and she becomes very short of breath when she walks. She denies any chest pain or leg swelling. States that she has been having some diarrhea after starting the cefdinir. <Nhi Kan MD - Last Filed: 04/23/24 16:53> Related Data Home Medications: Home Medications Medication Instructions Recorded Confirmed coQ10 (ubiquinol) 100 mg capsule 100 mg PO DAILY 07/20/23 04/20/24 <Tamanna Sandhu PA-C - Last Filed: 04/20/24 12:29> Allergies/Adverse Reactions: Allergies Allergy/AdvReac Type Severity Reaction Status Date / Time Penicillins Allergy Unknown Hives Verified 04/23/24 13:00 montelukast AdvReac Intermediate Hallucinating Verified 09/09/23 15:21 suicidial ideation levofloxacin AdvReac Dyspnea / Verified 04/23/24 12:58 SOB morphine AdvReac Hallucinati Verified 09/09/23 15:21 ng <Tamanna Sandhu PA-C - Last Filed: 04/20/24 12:29> Review of Systems Review of Systems: All systems reviewed & are unremarkable except as noted in HPI and below <Nhi Kan MD - Last Filed: 04/23/24 16:53> [facility] Past Medical History Medical History: Medical History (Updated 04/20/24 @ 16:36 by Otoniel Grant MD) Abdominal pain Abnormal fasting glucose Acute non-recurrent maxillary sinusitis Angina pectoris syndrome Anxiety At low risk for fall Benign paroxysmal positional vertigo due to bilateral vestibular disorder BMI 35.0-35.9,adult BMI 36.0-36.9,adult BMI 38.0-38.9,adult BMI 39.0-39.9,adult Body mass index (BMI) 40.0-44.9, adult (10/11/18) Breast cancer screening by mammogram Candidiasis of genitalia in female Chest pain Lexiscan stress test negative for ischemia 02/18/2022 Chest pain Chest pain in adult Chronic depression (~06/2021) Chronic diarrhea Controlled diabetes mellitus fasting glucose 115 with hemoglobin A1c 6.2 on 08/24/2022. Fasting glucose 112 with hemoglobin A1c 5.7 on 05/05/2023. Coronary artery 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 cardiac catheterization 04/02/2019 with diffuse mild coronary artery disease with 25-40% lesion of the LAD, diagonal, circumflex, and obtuse marginal with normal right coronary artery. Cardiac catheterization 07/21/2023 with moderate distal LAD lesion. Moderate lesion of the 1st diagonal with tandem distal lesion of 99%. Catheterization on 09/13/2023 with PCI and drug-eluting stent in the 1st diagonal on 09/13/2023. Deep vein thrombosis (DVT) of left lower extremity (11/09/21) Diarrhea Dizziness Dyspnea on exertion Elevated troponin Fibromyalgia Generalized weakness GERD (gastroesophageal reflux disease) Hirsutism History of pulmonary embolism Hypothyroidism, unspecified TSH suppressed at 0.35 08/24/2022. TSH 0.33 on 05/05/2023. Irritable bowel syndrome with diarrhea Leukocytosis WBC 12.8 on 11/11/2020. WBC 11.3 on 05/05/2023. Migraine without aura and without status migrainosus, not intractable Mixed hyperlipidemia Total cholesterol 160, triglycerides 126, HDL 52, LDL 85 on 08/24/2022. Cholesterol 221, triglycerides 172, HDL 59, LDL 139 with ratio of 3.7 on 05/05/2023. cholesterol 146, triglycerides 103, HDL 39, LDL 84 on 09/13/2023. Moderate persistent asthma without status asthmaticus without complication Nausea Neoplasm of skin of cheek Obesity (BMI 30-39.9) Obesity (BMI 35.0-39.9 without comorbidity) Pancreatitis Pulmonary embolism (11/09/21) Unstable angina pectoris Urinary tract infection <Tamanna Sandhu PA-C - Last Filed: 04/20/24 12:29> Surgical History Surgical History: Surgical History Hx of cholecystectomy <Tamanna Sandhu PA-C - Last Filed: 04/20/24 12:29> Family History Family History: Family History Sibling Family history of condition Family history of Parkinson's disease Father CHF (congestive heart failure) <Tamanna Sandhu PA-C - Last Filed: 04/20/24 12:29> Social History Social History: Social History Smoking status: Never smoker Second hand tobacco smoke exposure: No Alcohol intake: never Substance use: never Substance use type: does not use Do You Feel Safe in your Home?: Yes Lack of Transportation: No Lack of Food: Never True Current Housing: I Have Housing Concerned About Future Housing: No Difficulty Paying Gas/Electric Bills: No Difficulty Paying for Meds: No Currently Unemployed: No Education: Bachelor's Degree Difficulty w/ Childcare or Family Care: No Living arrangements: with family Gender identity (if verbalized by the patient): Female Spiritual care concerns: No <Tamanna Sandhu PA-C - Last Filed: 04/20/24 12:29> Exam Narrative: GENERAL: Nontoxic, in no acute distress, pleasant cooperative HEAD: Normocephalic, atraumatic. EYES: PERRLA and EOMI. ENT: Nares clear, no rhinorrhea or epistaxis. Mucous membranes moist. NECK: Supple. CHEST: No respiratory distress. some coarse breath sounds in the bases, I do not appreciate any wheezing HEART: Regular rate and rhythm ABDOMEN: Soft, nontender, nondistended EXTREMITIES: No edema. SKIN: Warm, dry, no rash. NEURO: Alert and oriented x3. PSYCH: Normal mood and affect. <Nhi Kan MD - Last Filed: 04/23/24 16:53> Course Reevaluation(s) Reevaluation #1: Signed out pending dispo, discussed with hospitalist for admission. <Yane Charles MD - Last Filed: 04/19/24 22:57> Vital Signs Vital signs: Vital Signs Temperature 97.7 F 04/19/24 14:39 Pulse Rate 105 H 04/19/24 14:39 Respiratory Rate 20 04/19/24 14:39 Blood Pressure 138/95 H 04/19/24 14:39 Pulse Oximetry 97 04/19/24 14:39 Oxygen Delivery Room Air 04/19/24 14:39 Temperature 96.0 F L 04/23/24 14:00 Pulse Rate 81 04/23/24 14:00 Respiratory Rate 24 H 04/23/24 14:00 Blood Pressure 124/56 L 04/23/24 14:00 Pulse Oximetry 98 04/23/24 14:00 Oxygen Delivery Room Air 04/23/24 08:15 Fraction of Inspired Oxygen 21 04/22/24 21:12 <Tamanna Sandhu PA-C - Last Filed: 04/20/24 12:29> Vital Signs Temperature 97.7 F 04/19/24 14:39 Pulse Rate 105 H 04/19/24 14:39 Respiratory Rate 20 04/19/24 14:39 Blood Pressure 138/95 H 04/19/24 14:39 Pulse Oximetry 97 04/19/24 14:39 Oxygen Delivery Room Air 04/19/24 14:39 Temperature 96.0 F L 04/23/24 14:00 Pulse Rate 81 04/23/24 14:00 Respiratory Rate 24 H 04/23/24 14:00 Blood Pressure 124/56 L 04/23/24 14:00 Pulse Oximetry 98 04/23/24 14:00 Oxygen Delivery Room Air 04/23/24 08:15 Fraction of Inspired Oxygen 21 04/22/24 21:12 <Nhi Kan MD - Last Filed: 04/23/24 16:53> Vital Signs Temperature 97.7 F 04/19/24 14:39 Pulse Rate 105 H 04/19/24 14:39 Respiratory Rate 20 04/19/24 14:39 Blood Pressure 138/95 H 04/19/24 14:39 Pulse Oximetry 97 04/19/24 14:39 Oxygen Delivery Room Air 04/19/24 14:39 Temperature 96.0 F L 04/23/24 14:00 Pulse Rate 81 04/23/24 14:00 Respiratory Rate 24 H 04/23/24 14:00 Blood Pressure 124/56 L 04/23/24 14:00 Pulse Oximetry 98 04/23/24 14:00 Oxygen Delivery Room Air 04/23/24 08:15 Fraction of Inspired Oxygen 21 04/22/24 21:12 <Yane Charles MD - Last Filed: 04/19/24 22:57> MDM - URI/Sore Throat MDM Narrative Medical decision making narrative: 83-year-old female presenting with cough, shortness of breath, fatigue. Patient initially tachycardic on arrival, otherwise vitals are stable. Exam remarkable for the above. Chest x-ray is concerning for pneumonia. Blood work is concerning for a white count of nearly 15. Patient has a history of pulmonary embolus, she states that she is concerned about this. CTA of the chest was obtained which shows no pulmonary embolus but she does have evidence of multifocal pneumonia. She has already been treated with p.o. antibiotics, feel she requires admission for IV antibiotics and further management. She is agreeable with this plan. <Nhi Kan MD - Last Filed: 04/23/24 16:53> Differential Diagnosis Differential diagnosis: Likely upper respiratory infection, viral infection, influenza and other ( pneumonia, pulmonary embolus) <Nhi Kan MD - Last Filed: 04/23/24 16:53> Medical Records Attestation: I reviewed the patient's medical records. <Nhi Kan MD - Last Filed: 04/23/24 16:53> Lab Data Attestation: I reviewed the patient's lab results. <Nhi Kan MD - Last Filed: 04/23/24 16:53> Result diagrams: 04/23/24 07:15 04/23/24 07:15 <Tamanna Sandhu PA-C - Last Filed: 04/20/24 12:29> Labs: Lab Results 04/19/24 04/19/24 04/19/24 Range/Units 18:33 18:37 20:48 WBC 14.8 H (4.5-10.0) K/mm3 RBC 4.41 (4.2-5.4) M/mm3 Hgb 13.7 (12.0-15.0) g/dL Hct 40.7 (37.0-47.0) % MCV 92.3 (80-100) fl MCH 31.1 (26-34) pg MCHC 33.7 (32-36) g/dl RDW 14.3 (11.5-14.5) % Plt Count 344 (150-375) k/mm3 MPV 10.5 H (7.4-10.4) fl Immature Gran % (Auto) 0.4 (0-0.5) % Neut % (Auto) 60.2 (45.5-73.1) % Lymph % (Auto) 31.3 (18.3-44.2) % Roosevelt % (Auto) 6.9 (2.6-8.5) % Eos % (Auto) 0.9 (0-4.4) % Baso % (Auto) 0.3 (0.2-1.2) % Lymph # (Auto) 4.63 H (0.9-3.2) K/mm3 Roosevelt # (Auto) 1.0 H (0.1-0.6) K/mm3 Eos # (Auto) 0.1 (0-0.3) K/mm3 Baso # (Auto) 0.0 (0.0-0.1) K/mm3 Abs Immat Gran (auto) 0.06 H (0.00-0.031) K/mm3 Absolute Neuts (auto) 8.9 H (1.3-6.7) K/mm3 Absolute Nucleated RBC 0.000 (0.0-0.012) K/mm3 Nucleated RBC % 0.0 (0.0-0.2) % PT 20.9 H (11.1-14.7) Seconds INR 1.8 APTT 31.3 (22.3-36.8) Seconds Sodium 140 (137-145) mmol/L Potassium 3.7 (3.4-5.0) mmol/L Chloride 107 (98-107) mmol/L Carbon Dioxide 21 L (22-30) mmol/L Anion Gap 12 (4-12) mmol/L BUN 14 (7-17) mg/dL Creatinine 0.80 (0.7-1.0) mg/dL Estim Creat Clear Calc 52 ml/min Estimated GFR > 60 (59 - ) Glucose 116 H (65-110) mg/dL Calcium 9.7 (8.4-10.2) mg/dL Total Bilirubin 0.6 (0.2-1.3) mg/dL AST 25 (14-36) U/L ALT 24 (6-35) U/L Alkaline Phosphatase 85 (38-126) U/L Troponin I < 0.012 (0.000-0.034) ng/mL Total Protein 8.0 (6.3-8.2) g/dL Albumin 4.0 (3.5-5.1) g/dL Lipase 120 (23-300) U/L Urine Color Dark yellow (Yellow) Urine Appearance Cloudy H (Clear) Urine pH 6.0 (5.0-9.0) Ur Specific Nordman 1.024 (1.001-1.035) Urine Protein 1+ H (Negative) mg/dL Urine Glucose (UA) Negative (Negative) mg/dL Urine Ketones Trace H (Negative) mg/dL Ur Blood (Man) Negative (Negative) Urine Nitrate Negative (Negative) Urine Bilirubin 1+ H (Negative) Urine Urobilinogen 0.2 (<2.0) mg/dL Add Ur Microanalysis Reviewed Leukocyte Esterase Rfl 3+ H (Negative) CELIO/UL Urine RBC 6-10 H (0-2) /hpf Urine WBC 51-100 H (0-3) /hpf Ur Squamous Epith Cells Moderate (Few) /hpf Urine Bacteria Rare /hpf Urine Casts 3-5 Urine Mucus Present /lpf Stool Pancreat Elastase C. difficile (PCR) (NEGATIVE) Influenza A (RT-PCR) Negative (Negative) Influenza B (RT-PCR) Negative (Negative) RSV (RT-PCR) Negative (Negative) SARS-CoV-2 RNA (RT-PCR) Negative (Negative) 04/19/24 04/20/24 04/21/24 Range/Units 23:12 02:32 08:30 WBC 9.4 (4.5-10.0) K/mm3 RBC 3.96 L (4.2-5.4) M/mm3 Hgb 11.9 L (12.0-15.0) g/dL Hct 37.2 (37.0-47.0) % MCV 93.9 (80-100) fl MCH 30.1 (26-34) pg MCHC 32.0 (32-36) g/dl RDW 14.4 (11.5-14.5) % Plt Count 285 (150-375) k/mm3 MPV 10.5 H (7.4-10.4) fl Immature Gran % (Auto) 0.4 (0-0.5) % Neut % (Auto) 62.7 (45.5-73.1) % Lymph % (Auto) 27.0 (18.3-44.2) % Roosevelt % (Auto) 8.1 (2.6-8.5) % Eos % (Auto) 1.5 (0-4.4) % Baso % (Auto) 0.3 (0.2-1.2) % Lymph # (Auto) 2.54 (0.9-3.2) K/mm3 Roosevelt # (Auto) 0.8 H (0.1-0.6) K/mm3 Eos # (Auto) 0.1 (0-0.3) K/mm3 Baso # (Auto) 0.0 (0.0-0.1) K/mm3 Abs Immat Gran (auto) 0.04 H (0.00-0.031) K/mm3 Absolute Neuts (auto) 5.9 (1.3-6.7) K/mm3 Absolute Nucleated RBC 0.000 (0.0-0.012) K/mm3 Nucleated RBC % 0.0 (0.0-0.2) % PT (11.1-14.7) Seconds INR APTT (22.3-36.8) Seconds Sodium 144 (137-145) mmol/L Potassium 3.5 (3.4-5.0) mmol/L Chloride 113 H (98-107) mmol/L Carbon Dioxide 21 L (22-30) mmol/L Anion Gap 10 (4-12) mmol/L BUN 8 D (7-17) mg/dL Creatinine 0.60 L (0.7-1.0) mg/dL Estim Creat Clear Calc 67 ml/min Estimated GFR > 60 (59 - ) Glucose 110 (65-110) mg/dL Calcium 8.7 (8.4-10.2) mg/dL Total Bilirubin (0.2-1.3) mg/dL AST (14-36) U/L ALT (6-35) U/L Alkaline Phosphatase (38-126) U/L Troponin I < 0.012 < 0.012 (0.000-0.034) ng/mL Total Protein (6.3-8.2) g/dL Albumin (3.5-5.1) g/dL Lipase (23-300) U/L Urine Color (Yellow) Urine Appearance (Clear) Urine pH (5.0-9.0) Ur Specific Nordman (1.001-1.035) Urine Protein (Negative) mg/dL Urine Glucose (UA) (Negative) mg/dL Urine Ketones (Negative) mg/dL Ur Blood (Man) (Negative) Urine Nitrate (Negative) Urine Bilirubin (Negative) Urine Urobilinogen (<2.0) mg/dL Add Ur Microanalysis Leukocyte Esterase Rfl (Negative) CELIO/UL Urine RBC (0-2) /hpf Urine WBC (0-3) /hpf Ur Squamous Epith Cells (Few) /hpf Urine Bacteria /hpf Urine Casts Urine Mucus /lpf Stool Pancreat Elastase C. difficile (PCR) (NEGATIVE) Influenza A (RT-PCR) (Negative) Influenza B (RT-PCR) (Negative) RSV (RT-PCR) (Negative) SARS-CoV-2 RNA (RT-PCR) (Negative) 04/21/24 04/21/24 04/22/24 Range/Units 09:08 09:08 06:38 WBC 11.1 H (4.5-10.0) K/mm3 RBC 3.85 L (4.2-5.4) M/mm3 Hgb 11.6 L (12.0-15.0) g/dL Hct 36.2 L (37.0-47.0) % MCV 94.0 (80-100) fl MCH 30.1 (26-34) pg MCHC 32.0 (32-36) g/dl RDW 14.7 H (11.5-14.5) % Plt Count 290 (150-375) k/mm3 MPV 10.8 H (7.4-10.4) fl Immature Gran % (Auto) 0.5 (0-0.5) % Neut % (Auto) 63.7 (45.5-73.1) % Lymph % (Auto) 26.6 (18.3-44.2) % Roosevelt % (Auto) 7.3 (2.6-8.5) % Eos % (Auto) 1.5 (0-4.4) % Baso % (Auto) 0.4 (0.2-1.2) % Lymph # (Auto) 2.95 (0.9-3.2) K/mm3 Roosevelt # (Auto) 0.8 H (0.1-0.6) K/mm3 Eos # (Auto) 0.2 (0-0.3) K/mm3 Baso # (Auto) 0.0 (0.0-0.1) K/mm3 Abs Immat Gran (auto) 0.05 H (0.00-0.031) K/mm3 Absolute Neuts (auto) 7.1 H (1.3-6.7) K/mm3 Absolute Nucleated RBC 0.000 (0.0-0.012) K/mm3 Nucleated RBC % 0.0 (0.0-0.2) % PT (11.1-14.7) Seconds INR APTT (22.3-36.8) Seconds Sodium 143 (137-145) mmol/L Potassium 3.1 L (3.4-5.0) mmol/L Chloride 112 H (98-107) mmol/L Carbon Dioxide 20 L (22-30) mmol/L Anion Gap 11 (4-12) mmol/L BUN 6 L (7-17) mg/dL Creatinine 0.70 (0.7-1.0) mg/dL Estim Creat Clear Calc 59 ml/min Estimated GFR > 60 (59 - ) Glucose 96 (65-110) mg/dL Calcium 8.4 (8.4-10.2) mg/dL Total Bilirubin (0.2-1.3) mg/dL AST (14-36) U/L ALT (6-35) U/L Alkaline Phosphatase (38-126) U/L Troponin I (0.000-0.034) ng/mL Total Protein (6.3-8.2) g/dL Albumin (3.5-5.1) g/dL Lipase (23-300) U/L Urine Color (Yellow) Urine Appearance (Clear) Urine pH (5.0-9.0) Ur Specific Nordman (1.001-1.035) Urine Protein (Negative) mg/dL Urine Glucose (UA) (Negative) mg/dL Urine Ketones (Negative) mg/dL Ur Blood (Man) (Negative) Urine Nitrate (Negative) Urine Bilirubin (Negative) Urine Urobilinogen (<2.0) mg/dL Add Ur Microanalysis Leukocyte Esterase Rfl (Negative) CELIO/UL Urine RBC (0-2) /hpf Urine WBC (0-3) /hpf Ur Squamous Epith Cells (Few) /hpf Urine Bacteria /hpf Urine Casts Urine Mucus /lpf Stool Pancreat Elastase Pending C. difficile (PCR) Negative Cancelled (NEGATIVE) Influenza A (RT-PCR) (Negative) Influenza B (RT-PCR) (Negative) RSV (RT-PCR) (Negative) SARS-CoV-2 RNA (RT-PCR) (Negative) <Tamanna Sandhu PA-C - Last Filed: 04/20/24 12:29> Lab Results 04/19/24 04/19/24 04/19/24 Range/Units 18:33 18:37 20:48 WBC 14.8 H (4.5-10.0) K/mm3 RBC 4.41 (4.2-5.4) M/mm3 Hgb 13.7 (12.0-15.0) g/dL Hct 40.7 (37.0-47.0) % MCV 92.3 (80-100) fl MCH 31.1 (26-34) pg MCHC 33.7 (32-36) g/dl RDW 14.3 (11.5-14.5) % Plt Count 344 (150-375) k/mm3 MPV 10.5 H (7.4-10.4) fl Immature Gran % (Auto) 0.4 (0-0.5) % Neut % (Auto) 60.2 (45.5-73.1) % Lymph % (Auto) 31.3 (18.3-44.2) % Roosevelt % (Auto) 6.9 (2.6-8.5) % Eos % (Auto) 0.9 (0-4.4) % Baso % (Auto) 0.3 (0.2-1.2) % Lymph # (Auto) 4.63 H (0.9-3.2) K/mm3 Roosevelt # (Auto) 1.0 H (0.1-0.6) K/mm3 Eos # (Auto) 0.1 (0-0.3) K/mm3 Baso # (Auto) 0.0 (0.0-0.1) K/mm3 Abs Immat Gran (auto) 0.06 H (0.00-0.031) K/mm3 Absolute Neuts (auto) 8.9 H (1.3-6.7) K/mm3 Absolute Nucleated RBC 0.000 (0.0-0.012) K/mm3 Nucleated RBC % 0.0 (0.0-0.2) % PT 20.9 H (11.1-14.7) Seconds INR 1.8 APTT 31.3 (22.3-36.8) Seconds Sodium 140 (137-145) mmol/L Potassium 3.7 (3.4-5.0) mmol/L Chloride 107 (98-107) mmol/L Carbon Dioxide 21 L (22-30) mmol/L Anion Gap 12 (4-12) mmol/L BUN 14 (7-17) mg/dL Creatinine 0.80 (0.7-1.0) mg/dL Estim Creat Clear Calc 52 ml/min Estimated GFR > 60 (59 - ) Glucose 116 H (65-110) mg/dL Calcium 9.7 (8.4-10.2) mg/dL Total Bilirubin 0.6 (0.2-1.3) mg/dL AST 25 (14-36) U/L ALT 24 (6-35) U/L Alkaline Phosphatase 85 (38-126) U/L Troponin I < 0.012 (0.000-0.034) ng/mL Total Protein 8.0 (6.3-8.2) g/dL Albumin 4.0 (3.5-5.1) g/dL Lipase 120 (23-300) U/L Urine Color Dark yellow (Yellow) Urine Appearance Cloudy H (Clear) Urine pH 6.0 (5.0-9.0) Ur Specific Nordman 1.024 (1.001-1.035) Urine Protein 1+ H (Negative) mg/dL Urine Glucose (UA) Negative (Negative) mg/dL Urine Ketones Trace H (Negative) mg/dL Ur Blood (Man) Negative (Negative) Urine Nitrate Negative (Negative) Urine Bilirubin 1+ H (Negative) Urine Urobilinogen 0.2 (<2.0) mg/dL Add Ur Microanalysis Reviewed Leukocyte Esterase Rfl 3+ H (Negative) CELIO/UL Urine RBC 6-10 H (0-2) /hpf Urine WBC 51-100 H (0-3) /hpf Ur Squamous Epith Cells Moderate (Few) /hpf Urine Bacteria Rare /hpf Urine Casts 3-5 Urine Mucus Present /lpf Stool Pancreat Elastase C. difficile (PCR) (NEGATIVE) Influenza A (RT-PCR) Negative (Negative) Influenza B (RT-PCR) Negative (Negative) RSV (RT-PCR) Negative (Negative) SARS-CoV-2 RNA (RT-PCR) Negative (Negative) 04/19/24 04/20/24 04/21/24 Range/Units 23:12 02:32 08:30 WBC 9.4 (4.5-10.0) K/mm3 RBC 3.96 L (4.2-5.4) M/mm3 Hgb 11.9 L (12.0-15.0) g/dL Hct 37.2 (37.0-47.0) % MCV 93.9 (80-100) fl MCH 30.1 (26-34) pg MCHC 32.0 (32-36) g/dl RDW 14.4 (11.5-14.5) % Plt Count 285 (150-375) k/mm3 MPV 10.5 H (7.4-10.4) fl Immature Gran % (Auto) 0.4 (0-0.5) % Neut % (Auto) 62.7 (45.5-73.1) % Lymph % (Auto) 27.0 (18.3-44.2) % Roosevelt % (Auto) 8.1 (2.6-8.5) % Eos % (Auto) 1.5 (0-4.4) % Baso % (Auto) 0.3 (0.2-1.2) % Lymph # (Auto) 2.54 (0.9-3.2) K/mm3 Roosevelt # (Auto) 0.8 H (0.1-0.6) K/mm3 Eos # (Auto) 0.1 (0-0.3) K/mm3 Baso # (Auto) 0.0 (0.0-0.1) K/mm3 Abs Immat Gran (auto) 0.04 H (0.00-0.031) K/mm3 Absolute Neuts (auto) 5.9 (1.3-6.7) K/mm3 Absolute Nucleated RBC 0.000 (0.0-0.012) K/mm3 Nucleated RBC % 0.0 (0.0-0.2) % PT (11.1-14.7) Seconds INR APTT (22.3-36.8) Seconds Sodium 144 (137-145) mmol/L Potassium 3.5 (3.4-5.0) mmol/L Chloride 113 H (98-107) mmol/L Carbon Dioxide 21 L (22-30) mmol/L Anion Gap 10 (4-12) mmol/L BUN 8 D (7-17) mg/dL Creatinine 0.60 L (0.7-1.0) mg/dL Estim Creat Clear Calc 67 ml/min Estimated GFR > 60 (59 - ) Glucose 110 (65-110) mg/dL Calcium 8.7 (8.4-10.2) mg/dL Total Bilirubin (0.2-1.3) mg/dL AST (14-36) U/L ALT (6-35) U/L Alkaline Phosphatase (38-126) U/L Troponin I < 0.012 < 0.012 (0.000-0.034) ng/mL Total Protein (6.3-8.2) g/dL Albumin (3.5-5.1) g/dL Lipase (23-300) U/L Urine Color (Yellow) Urine Appearance (Clear) Urine pH (5.0-9.0) Ur Specific Nordman (1.001-1.035) Urine Protein (Negative) mg/dL Urine Glucose (UA) (Negative) mg/dL Urine Ketones (Negative) mg/dL Ur Blood (Man) (Negative) Urine Nitrate (Negative) Urine Bilirubin (Negative) Urine Urobilinogen (<2.0) mg/dL Add Ur Microanalysis Leukocyte Esterase Rfl (Negative) CELIO/UL Urine RBC (0-2) /hpf Urine WBC (0-3) /hpf Ur Squamous Epith Cells (Few) /hpf Urine Bacteria /hpf Urine Casts Urine Mucus /lpf Stool Pancreat Elastase C. difficile (PCR) (NEGATIVE) Influenza A (RT-PCR) (Negative) Influenza B (RT-PCR) (Negative) RSV (RT-PCR) (Negative) SARS-CoV-2 RNA (RT-PCR) (Negative) 04/21/24 04/21/24 04/22/24 Range/Units 09:08 09:08 06:38 WBC 11.1 H (4.5-10.0) K/mm3 RBC 3.85 L (4.2-5.4) M/mm3 Hgb 11.6 L (12.0-15.0) g/dL Hct 36.2 L (37.0-47.0) % MCV 94.0 (80-100) fl MCH 30.1 (26-34) pg MCHC 32.0 (32-36) g/dl RDW 14.7 H (11.5-14.5) % Plt Count 290 (150-375) k/mm3 MPV 10.8 H (7.4-10.4) fl Immature Gran % (Auto) 0.5 (0-0.5) % Neut % (Auto) 63.7 (45.5-73.1) % Lymph % (Auto) 26.6 (18.3-44.2) % Roosevelt % (Auto) 7.3 (2.6-8.5) % Eos % (Auto) 1.5 (0-4.4) % Baso % (Auto) 0.4 (0.2-1.2) % Lymph # (Auto) 2.95 (0.9-3.2) K/mm3 Roosevelt # (Auto) 0.8 H (0.1-0.6) K/mm3 Eos # (Auto) 0.2 (0-0.3) K/mm3 Baso # (Auto) 0.0 (0.0-0.1) K/mm3 Abs Immat Gran (auto) 0.05 H (0.00-0.031) K/mm3 Absolute Neuts (auto) 7.1 H (1.3-6.7) K/mm3 Absolute Nucleated RBC 0.000 (0.0-0.012) K/mm3 Nucleated RBC % 0.0 (0.0-0.2) % PT (11.1-14.7) Seconds INR APTT (22.3-36.8) Seconds Sodium 143 (137-145) mmol/L Potassium 3.1 L (3.4-5.0) mmol/L Chloride 112 H (98-107) mmol/L Carbon Dioxide 20 L (22-30) mmol/L Anion Gap 11 (4-12) mmol/L BUN 6 L (7-17) mg/dL Creatinine 0.70 (0.7-1.0) mg/dL Estim Creat Clear Calc 59 ml/min Estimated GFR > 60 (59 - ) Glucose 96 (65-110) mg/dL Calcium 8.4 (8.4-10.2) mg/dL Total Bilirubin (0.2-1.3) mg/dL AST (14-36) U/L ALT (6-35) U/L Alkaline Phosphatase (38-126) U/L Troponin I (0.000-0.034) ng/mL Total Protein (6.3-8.2) g/dL Albumin (3.5-5.1) g/dL Lipase (23-300) U/L Urine Color (Yellow) Urine Appearance (Clear) Urine pH (5.0-9.0) Ur Specific Nordman (1.001-1.035) Urine Protein (Negative) mg/dL Urine Glucose (UA) (Negative) mg/dL Urine Ketones (Negative) mg/dL Ur Blood (Man) (Negative) Urine Nitrate (Negative) Urine Bilirubin (Negative) Urine Urobilinogen (<2.0) mg/dL Add Ur Microanalysis Leukocyte Esterase Rfl (Negative) CELIO/UL Urine RBC (0-2) /hpf Urine WBC (0-3) /hpf Ur Squamous Epith Cells (Few) /hpf Urine Bacteria /hpf Urine Casts Urine Mucus /lpf Stool Pancreat Elastase Pending C. difficile (PCR) Negative Cancelled (NEGATIVE) Influenza A (RT-PCR) (Negative) Influenza B (RT-PCR) (Negative) RSV (RT-PCR) (Negative) SARS-CoV-2 RNA (RT-PCR) (Negative) <Nhi Kan MD - Last Filed: 04/23/24 16:53> Lab Results 04/19/24 04/19/24 04/19/24 Range/Units 18:33 18:37 20:48 WBC 14.8 H (4.5-10.0) K/mm3 RBC 4.41 (4.2-5.4) M/mm3 Hgb 13.7 (12.0-15.0) g/dL Hct 40.7 (37.0-47.0) % MCV 92.3 (80-100) fl MCH 31.1 (26-34) pg MCHC 33.7 (32-36) g/dl RDW 14.3 (11.5-14.5) % Plt Count 344 (150-375) k/mm3 MPV 10.5 H (7.4-10.4) fl Immature Gran % (Auto) 0.4 (0-0.5) % Neut % (Auto) 60.2 (45.5-73.1) % Lymph % (Auto) 31.3 (18.3-44.2) % Roosevelt % (Auto) 6.9 (2.6-8.5) % Eos % (Auto) 0.9 (0-4.4) % Baso % (Auto) 0.3 (0.2-1.2) % Lymph # (Auto) 4.63 H (0.9-3.2) K/mm3 Roosevelt # (Auto) 1.0 H (0.1-0.6) K/mm3 Eos # (Auto) 0.1 (0-0.3) K/mm3 Baso # (Auto) 0.0 (0.0-0.1) K/mm3 Abs Immat Gran (auto) 0.06 H (0.00-0.031) K/mm3 Absolute Neuts (auto) 8.9 H (1.3-6.7) K/mm3 Absolute Nucleated RBC 0.000 (0.0-0.012) K/mm3 Nucleated RBC % 0.0 (0.0-0.2) % PT 20.9 H (11.1-14.7) Seconds INR 1.8 APTT 31.3 (22.3-36.8) Seconds Sodium 140 (137-145) mmol/L Potassium 3.7 (3.4-5.0) mmol/L Chloride 107 (98-107) mmol/L Carbon Dioxide 21 L (22-30) mmol/L Anion Gap 12 (4-12) mmol/L BUN 14 (7-17) mg/dL Creatinine 0.80 (0.7-1.0) mg/dL Estim Creat Clear Calc 52 ml/min Estimated GFR > 60 (59 - ) Glucose 116 H (65-110) mg/dL Calcium 9.7 (8.4-10.2) mg/dL Total Bilirubin 0.6 (0.2-1.3) mg/dL AST 25 (14-36) U/L ALT 24 (6-35) U/L Alkaline Phosphatase 85 (38-126) U/L Troponin I < 0.012 (0.000-0.034) ng/mL Total Protein 8.0 (6.3-8.2) g/dL Albumin 4.0 (3.5-5.1) g/dL Lipase 120 (23-300) U/L Urine Color Dark yellow (Yellow) Urine Appearance Cloudy H (Clear) Urine pH 6.0 (5.0-9.0) Ur Specific Nordman 1.024 (1.001-1.035) Urine Protein 1+ H (Negative) mg/dL Urine Glucose (UA) Negative (Negative) mg/dL Urine Ketones Trace H (Negative) mg/dL Ur Blood (Man) Negative (Negative) Urine Nitrate Negative (Negative) Urine Bilirubin 1+ H (Negative) Urine Urobilinogen 0.2 (<2.0) mg/dL Add Ur Microanalysis Reviewed Leukocyte Esterase Rfl 3+ H (Negative) CELIO/UL Urine RBC 6-10 H (0-2) /hpf Urine WBC 51-100 H (0-3) /hpf Ur Squamous Epith Cells Moderate (Few) /hpf Urine Bacteria Rare /hpf Urine Casts 3-5 Urine Mucus Present /lpf Stool Pancreat Elastase C. difficile (PCR) (NEGATIVE) Influenza A (RT-PCR) Negative (Negative) Influenza B (RT-PCR) Negative (Negative) RSV (RT-PCR) Negative (Negative) SARS-CoV-2 RNA (RT-PCR) Negative (Negative) 04/19/24 04/20/24 04/21/24 Range/Units 23:12 02:32 08:30 WBC 9.4 (4.5-10.0) K/mm3 RBC 3.96 L (4.2-5.4) M/mm3 Hgb 11.9 L (12.0-15.0) g/dL Hct 37.2 (37.0-47.0) % MCV 93.9 (80-100) fl MCH 30.1 (26-34) pg MCHC 32.0 (32-36) g/dl RDW 14.4 (11.5-14.5) % Plt Count 285 (150-375) k/mm3 MPV 10.5 H (7.4-10.4) fl Immature Gran % (Auto) 0.4 (0-0.5) % Neut % (Auto) 62.7 (45.5-73.1) % Lymph % (Auto) 27.0 (18.3-44.2) % [place] % (Auto) 8.1 (2.6-8.5) % Eos % (Auto) 1.5 (0-4.4) % Baso % (Auto) 0.3 (0.2-1.2) % Lymph # (Auto) 2.54 (0.9-3.2) K/mm3 [place] # (Auto) 0.8 H (0.1-0.6) K/mm3 Eos # (Auto) 0.1 (0-0.3) K/mm3 Baso # (Auto) 0.0 (0.0-0.1) K/mm3 Abs Immat Gran (auto) 0.04 H (0.00-0.031) K/mm3 Absolute Neuts (auto) 5.9 (1.3-6.7) K/mm3 Absolute Nucleated RBC 0.000 (0.0-0.012) K/mm3 Nucleated RBC % 0.0 (0.0-0.2) % PT (11.1-14.7) Seconds INR APTT (22.3-36.8) Seconds Sodium 144 (137-145) mmol/L Potassium 3.5 (3.4-5.0) mmol/L Chloride 113 H (98-107) mmol/L Carbon Dioxide 21 L (22-30) mmol/L Anion Gap 10 (4-12) mmol/L BUN 8 D (7-17) mg/dL Creatinine 0.60 L (0.7-1.0) mg/dL Estim Creat Clear Calc 67 ml/min Estimated GFR > 60 (59 - ) Glucose 110 (65-110) mg/dL Calcium 8.7 (8.4-10.2) mg/dL Total Bilirubin (0.2-1.3) mg/dL AST (14-36) U/L ALT (6-35) U/L Alkaline Phosphatase (38-126) U/L Troponin I < 0.012 < 0.012 (0.000-0.034) ng/mL Total Protein (6.3-8.2) g/dL Albumin (3.5-5.1) g/dL Lipase (23-300) U/L Urine Color (Yellow) Urine Appearance (Clear) Urine pH (5.0-9.0) Ur Specific [place] (1.001-1.035) Urine Protein (Negative) mg/dL Urine Glucose (UA) (Negative) mg/dL Urine Ketones (Negative) mg/dL Ur Blood (Man) (Negative) Urine Nitrate (Negative) Urine Bilirubin (Negative) Urine Urobilinogen (<2.0) mg/dL Add Ur Microanalysis Leukocyte Esterase Rfl (Negative) CELIO/UL Urine RBC (0-2) /hpf Urine WBC (0-3) /hpf Ur Squamous Epith Cells (Few) /hpf Urine Bacteria /hpf Urine Casts Urine Mucus /lpf Stool Pancreat Elastase C. difficile (PCR) (NEGATIVE) Influenza A (RT-PCR) (Negative) Influenza B (RT-PCR) (Negative) RSV (RT-PCR) (Negative) SARS-CoV-2 RNA (RT-PCR) (Negative) 04/21/24 04/21/24 04/22/24 Range/Units 09:08 09:08 06:38 WBC 11.1 H (4.5-10.0) K/mm3 RBC 3.85 L (4.2-5.4) M/mm3 Hgb 11.6 L (12.0-15.0) g/dL Hct 36.2 L (37.0-47.0) % MCV 94.0 (80-100) fl MCH 30.1 (26-34) pg MCHC 32.0 (32-36) g/dl RDW 14.7 H (11.5-14.5) % Plt Count 290 (150-375) k/mm3 MPV 10.8 H (7.4-10.4) fl Immature Gran % (Auto) 0.5 (0-0.5) % Neut % (Auto) 63.7 (45.5-73.1) % Lymph % (Auto) 26.6 (18.3-44.2) % [place] % (Auto) 7.3 (2.6-8.5) % Eos % (Auto) 1.5 (0-4.4) % Baso % (Auto) 0.4 (0.2-1.2) % Lymph # (Auto) 2.95 (0.9-3.2) K/mm3 [place] # (Auto) 0.8 H (0.1-0.6) K/mm3 Eos # (Auto) 0.2 (0-0.3) K/mm3 Baso # (Auto) 0.0 (0.0-0.1) K/mm3 Abs Immat Gran (auto) 0.05 H (0.00-0.031) K/mm3 Absolute Neuts (auto) 7.1 H (1.3-6.7) K/mm3 Absolute Nucleated RBC 0.000 (0.0-0.012) K/mm3 Nucleated RBC % 0.0 (0.0-0.2) % PT (11.1-14.7) Seconds INR APTT (22.3-36.8) Seconds Sodium 143 (137-145) mmol/L Potassium 3.1 L (3.4-5.0) mmol/L Chloride 112 H (98-107) mmol/L Carbon Dioxide 20 L (22-30) mmol/L Anion Gap 11 (4-12) mmol/L BUN 6 L (7-17) mg/dL Creatinine 0.70 (0.7-1.0) mg/dL Estim Creat Clear Calc 59 ml/min Estimated GFR > 60 (59 - ) Glucose 96 (65-110) mg/dL Calcium 8.4 (8.4-10.2) mg/dL Total Bilirubin (0.2-1.3) mg/dL AST (14-36) U/L ALT (6-35) U/L Alkaline Phosphatase (38-126) U/L Troponin I (0.000-0.034) ng/mL Total Protein (6.3-8.2) g/dL Albumin (3.5-5.1) g/dL Lipase (23-300) U/L Urine Color (Yellow) Urine Appearance (Clear) Urine pH (5.0-9.0) Ur Specific [place] (1.001-1.035) Urine Protein (Negative) mg/dL Urine Glucose (UA) (Negative) mg/dL Urine Ketones (Negative) mg/dL Ur Blood (Man) (Negative) Urine Nitrate (Negative) Urine Bilirubin (Negative) Urine Urobilinogen (<2.0) mg/dL Add Ur Microanalysis Leukocyte Esterase Rfl (Negative) CELIO/UL Urine RBC (0-2) /hpf Urine WBC (0-3) /hpf Ur Squamous Epith Cells (Few) /hpf Urine Bacteria /hpf Urine Casts Urine Mucus /lpf Stool Pancreat Elastase Pending C. difficile (PCR) Negative Cancelled (NEGATIVE) Influenza A (RT-PCR) (Negative) Influenza B (RT-PCR) (Negative) RSV (RT-PCR) (Negative) SARS-CoV-2 RNA (RT-PCR) (Negative) <Yane Charles MD - Last Filed: 04/19/24 22:57> Imaging Data Radiologist's impression: ITS Impressions Chest X-Ray 04/19/24 16:13 IMPRESSION: 1. Small wedge-shaped opacity at the lateral right midlung zone which could represent atelectasis or pneumonia. ITS Impressions Chest X-Ray 04/19/24 16:13 IMPRESSION: 1. Small wedge-shaped opacity at the lateral right midlung zone which could represent atelectasis or pneumonia. Chest CTA 04/19/24 21:50 IMPRESSION: 1. No pulmonary embolism. 2. Multiple patchy opacities in the right upper, lower and left lower lobes which may indicate focal pneumonia. Follow-up to resolution is advised. Nodule in the left lower lobe measuring 1.1 cm. 3 months follow-up is advised. 3. Soft tissue density in the left kidney. 3 months follow-up advised. 4. Small sliding hiatus hernia. <Nhi Kan MD - Last Filed: 04/23/24 16:53> Critical Care Time Critical Care Time Critical Care Time: No <Nhi Kan MD - Last Filed: 04/23/24 16:53> Discharge Plan Discharge Clinical Impression: Multifocal pneumonia <Tamanna Sandhu PA-C - Last Filed: 04/20/24 12:29> Patient Disposition: Still a Patient <Tamanna Sandhu PA-C - Last Filed: 04/20/24 12:29> Condition: Stable <Tamanna Sandhu PA-C - Last Filed: 04/20/24 12:29>
[2024-04-19 18:49] LABS: Basophils Percent Auto 0.3 % (0.2-1.2); Eosinophils Absolute Auto 0.1 K/mm3 (0-0.3); Eosinophils Percent Auto 0.9 % (0-4.4); Hematocrit 40.7 % (37.0-47.0); Hemoglobin 13.7 g/dL (12.0-15.0); Immature Granulocyte Absolute 0.06 K/mm3 (0.00-0.031); Immature Granulocyte Percent A 0.4 % (0-0.5); Lymphocytes Absolute Auto 4.63 K/mm3 (0.9-3.2); Lymphocytes Percent Auto 31.3 % (18.3-44.2); Mean Corpuscular HGB Conc 33.7 g/dl (32-36); Mean Corpuscular Hemoglobin 31.1 pg (26-34); Mean Corpuscular Volume 92.3 fl (80-100); Mean Platelet Volume 10.5 fl (7.4-10.4); Monocytes Percent Auto 6.9 % (2.6-8.5); Neutrophils Absolute Auto 8.9 K/mm3 (1.3-6.7); Neutrophils Percent Auto 60.2 % (45.5-73.1); Platelet Count Result 344 k/mm3 (150-375); Red Blood Count 4.41 M/mm3 (4.2-5.4); Red Cell Distribution Width 14.3 % (11.5-14.5); White Blood Count 14.8 K/mm3 (4.5-10.0)
[2024-04-19 19:00] LABS: Alanine Aminotransferase 24 U/L (6-35); Alkaline Phosphatase 85 U/L (38-126); Anion Gap 12 mmol/L (4-12); Aspartate Amino Transferase 25 U/L (14-36); Bilirubin,Total 0.6 mg/dL (0.2-1.3); Blood Urea Nitrogen 14 mg/dL (7-17); Calcium 9.7 mg/dL (8.4-10.2); Carbon Dioxide 21 mmol/L (22-30); Chloride 107 mmol/L (98-107); Estimated CRCL calculation 52 ml/min; Estimated Glomerular Filt Rate > 60; Glucose 116 mg/dL (65-110); Lipase 120 U/L (23-300); Potassium 3.7 mmol/L (3.4-5.0); Sodium 140 mmol/L (137-145)
[2024-04-19 19:04] LABS: INR 1.8; Prothrombin Time 20.9 Seconds (11.1-14.7)
[2024-04-19 19:05] LABS: Partial Thromboplastin Time 31.3 Seconds (22.3-36.8)
[2024-04-19 19:24] LABS: Influenza A QL RT-PCR Negative (Negative); Influenza B QL RT-PCR Negative (Negative); RSV RNA, RT-PCR Negative (Negative); SARS-CoV-2 RNA PCR Negative (Negative)
[2024-04-19 21:19] LABS: Add Urine Microscopic? YES; Appearance Urine Cloudy (Clear); Bacteria Urine Rare /hpf; Bilirubin Urine 1+ (Negative); Blood Urine Negative (Negative); Color Urine Dark Yellow (Yellow); Glucose Urine UA Negative (Negative); Ketones Urine Trace mg/dL (Negative); Leukocyte Esterase Ur 3+ LEU/UL (Negative); Mucus Urine Present /lpf; Need Manual Microscopic Reviewed; Nitrate Urine Negative (Negative); Protein Urine 1+ mg/dL (Negative); Specific Grav Ur 1.024 (1.001-1.035); Squamous Epithelial Cell Urine Moderate /hpf (Few); Urobilinogen Urine 0.2 mg/dL (<2.0); WBC Urine 51-100 /hpf (0-3)
[2024-04-19 21:45] LABS: Troponin I < 0.012 ng/mL (0.000-0.034)
[2024-04-19] MEDS: cefTRIAXone 2 GM/NS 100 ML 2 GM/100 ML BAG IVPB (21:54)
[2024-04-19] MEDS: SODIUM CHLORIDE 0.9% IV 1,000 ML 999 ML IV CONT (21:55)
[2024-04-19] MEDS: DOXYCYCLINE 100 MG/NS 100 ML 100 MG/100 ML BAG IVPB (22:40)
--- NOTE | 2024-04-19 23:25 | ECG_ITS ---
Test Date: 2024-04-19 23:37:04 Measurements Intervals [place] Rate: 84 P: 1 TN: 219 QRS: -21 QRSD: 85 T: 0 QT: 371 QTc: 439 Interpretive Statements SINUS RHYTHM WITH FIRST DEGREE AV BLOCK WITH OCCASIONAL VENTRICULAR PREMATURE COMPLEXES DELAYED PRECORDIAL R/S TRANSITION BORDERLINE T WAVE ABNORMALITY- INFERIOR LEADS BORDERLINE ECG No previous ECG available for comparison Electronically Signed On 04-20-2024 06:48:13 CDT by Pato Aguirre D.O.
--- NOTE | 2024-04-19 23:38 | PC.NURSE ---
Assumed care of pt after receiving report from KAVEH Prasad @ [phone]
[2024-04-19 23:44] LABS: Troponin I < 0.012 ng/mL (0.000-0.034)
[2024-04-20 00:50] VITALS: BP 141/68; PULSE 79; RESP 18; TEMP 36.9; O2SAT 99
[2024-04-20 01:01] VITALS: BMI 34.7
--- NOTE | 2024-04-20 01:07 | ADMGEN ---
This patient, Damaris Wilhelm, was admitted to 3 Med Surg Room 317-02. Patient/family oriented to hospital policies and general routines including ID bracelet, bed and alarms, visiting hours, pain management, procedures, bathroom and other care routines, personal items, smoking policy, room service/diet, and visiting hours. Information on how to activate the Rapid Response Team has been discussed. Patient/Family are encouraged to report perceived risks to care and to ask questions if they do not understand what they are told or what they should do.
[2024-04-20 02:58] LABS: Troponin I < 0.012 ng/mL (0.000-0.034)
[2024-04-20 05:35] VITALS: BP 146/64; PULSE 81; RESP 18; TEMP 36.1; O2SAT 98
--- NOTE | 2024-04-20 07:59 | P.HP_ITS ---
H&P: HPI History of Present Illness Date/Time: 04/20/24 07:59 Chief Complaint: Productive cough, shortness breast Narrative: 83 years old lady with history of CAD, DVT, hypothyroidism, present ED with a chief complaint of productive cough shortness breath and diarrhea. Patient has been having productive cough more than 3 weeks, patient has large amount of thick phlegm with cough. Patient finished cefdinir 7 days treatment. Patient also had diarrhea started about 3 weeks ago, watery diarrhea, patient had intermittent nausea and and vomiting. Patient denies abdomen pain, black emesis, bloody stools. Patient has general weakness, and worsening shortness of breath. Patient denies chest pain, palpitation, headache, focal weakness. Patient has dysuria, urinary urgency. Patient came to ED for evaluation treatment Upon arrival in the ED, patient was afebrile, but has tachycardia tachypnea, lab showed leukocytosis of 14,800, CT chest showed no PE but multifocal pneumonia involving right upper lower and left lower lobes, UA shows pyuria and microscopic hematuria PMFSH Past Medical History Medical History Abdominal pain Abnormal fasting glucose Acute non-recurrent maxillary sinusitis Angina pectoris syndrome Anxiety At low risk for fall Benign paroxysmal positional vertigo due to bilateral vestibular disorder BMI 35.0-35.9,adult BMI 36.0-36.9,adult BMI 38.0-38.9,adult BMI 39.0-39.9,adult Body mass index (BMI) 40.0-44.9, adult (10/11/18) Breast cancer screening by mammogram Candidiasis of genitalia in female Chest pain Lexiscan stress test negative for ischemia 02/18/2022 Chest pain Chest pain in adult Chronic depression (~06/2021) Controlled diabetes mellitus fasting glucose 115 with hemoglobin A1c 6.2 on 08/24/2022. Fasting glucose 112 with hemoglobin A1c 5.7 on 05/05/2023. Coronary artery 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 cardiac catheterization 04/02/2019 with diffuse mild coronary artery disease with 25-40% lesion of the LAD, diagonal, circumflex, and obtuse marginal with normal right coronary artery. Cardiac catheterization 07/21/2023 with moderate distal LAD lesion. Moderate lesion of the 1st diagonal with tandem distal lesion of 99%. Catheterization on 09/13/2023 with PCI and drug- eluting stent in the 1st diagonal on 09/13/2023. Deep vein thrombosis (DVT) of left lower extremity (11/09/21) Diarrhea Dizziness Dyspnea on exertion Elevated troponin Fibromyalgia Generalized weakness GERD (gastroesophageal reflux disease) Hirsutism History of pulmonary embolism Hypothyroidism, unspecified TSH suppressed at 0.35 08/24/2022. TSH 0.33 on 05/05/2023. Irritable bowel syndrome with diarrhea Leukocytosis WBC 12.8 on 11/11/2020. WBC 11.3 on 05/05/2023. Migraine without aura and without status migrainosus, not intractable Mixed hyperlipidemia Total cholesterol 160, triglycerides 126, HDL 52, LDL 85 on 08/24/2022. Cholesterol 221, triglycerides 172, HDL 59, LDL 139 with ratio of 3.7 on 05/05/2023. cholesterol 146, triglycerides 103, HDL 39, LDL 84 on 09/13/2023. Moderate persistent asthma without status asthmaticus without complication Nausea Neoplasm of skin of cheek Obesity (BMI 30-39.9) Obesity (BMI 35.0-39.9 without comorbidity) Pancreatitis Pulmonary embolism (11/09/21) Unstable angina pectoris Urinary tract infection Surgical History Surgical History Hx of cholecystectomy Family History Family History Sibling Family history of condition Family history of Parkinson's disease Father CHF (congestive heart failure) Social History Social History Smoking status: Never smoker Second hand tobacco smoke exposure: No Alcohol intake: never Substance use: never Substance use type: does not use Do You Feel Safe in your Home?: Yes Lack of Transportation: No Lack of Food: Never True Current Housing: I Have Housing Concerned About Future Housing: No Difficulty Paying Gas/Electric Bills: No Difficulty Paying for Meds: No Currently Unemployed: No Education: Bachelor's Degree Difficulty w/ Childcare or Family Care: No Living arrangements: with family Gender identity (if verbalized by the patient): Female Spiritual care concerns: No Meds Home Medications and Allergies Home Medications Medication Instructions Recorded Confirmed Type rivaroxaban 20 mg tablet (Xarelto) 20 mg PO QAM #30 tabs 07/04/23 04/20/24 Rx albuterol sulfate 90 mcg/actuation 2 puff inhalation Q4H PRN 07/18/23 04/20/24 Rx aerosol inhaler (Proventil HFA) Shortness Of Breath #18 grams metformin 500 mg tablet,extended 500 mg PO BID #60 tabs 07/19/23 04/20/24 Rx release 24 hr coQ10 (ubiquinol) 100 mg capsule 100 mg PO DAILY 07/20/23 04/20/24 History clopidogrel 75 mg tablet 75 mg PO QAM #90 tabs 09/13/23 04/20/24 Rx isosorbide mononitrate 30 mg 30 mg PO QAM #90 tabs 09/13/23 04/20/24 Rx tablet,extended release 24 hr metoprolol succinate 50 mg 50 mg PO QAM #90 tabs 09/13/23 04/20/24 Rx tablet,extended release 24 hr fluticasone 250 mcg-salmeterol 50 1 inh inhalation BID #60 ea 09/21/23 04/20/24 Rx mcg/dose blistr powdr for inhalation (Advair Diskus) pantoprazole 20 mg tablet,delayed 20 mg PO QAM 4 weeks #30 tabs 10/17/23 04/20/24 Rx release levothyroxine 150 mcg tablet 150 mcg PO DAILY #90 tabs 11/16/23 04/20/24 Rx (Synthroid) spironolactone 25 mg tablet 25 mg PO BID #120 tabs 02/08/24 04/20/24 Rx Allergies Allergy/AdvReac Type Severity Reaction Status Date / Time Penicillins Allergy Unknown Hives Verified 09/09/23 15:21 montelukast AdvReac Intermediate Hallucinating Verified 09/09/23 15:21 suicidial ideation morphine AdvReac Hallucinati Verified 09/09/23 15:21 ng Vital Signs Vital Signs - 24 hr 04/19/24 14:39 04/19/24 19:25 04/19/24 19:16 Temperature 97.7 F Pulse Rate 105 H 88 Respiratory Rate 20 18 Blood Pressure 138/95 H 141/77 H Pulse Oximetry 97 97 97 Oxygen Delivery Room Air Room Air 04/19/24 19:46 04/19/24 20:16 04/19/24 21:33 Temperature Pulse Rate 80 86 79 Respiratory Rate 20 15 17 Blood Pressure 120/71 121/68 Pulse Oximetry 95 96 97 Oxygen Delivery 04/19/24 22:00 04/19/24 23:35 04/19/24 23:17 Temperature Pulse Rate 80 79 80 Respiratory Rate 19 18 12 Blood Pressure 143/73 H Pulse Oximetry 98 98 98 Oxygen Delivery 04/20/24 00:50 04/20/24 00:30 04/20/24 05:35 Temperature 98.4 F 97 F L Pulse Rate 79 81 Respiratory Rate 18 18 Blood Pressure 141/68 H 146/64 H Pulse Oximetry 99 98 Oxygen Delivery Room Air Exam Narrative: GENERAL: Pleasant, in no acute distress. Well-nourished. - EYES: EOMI. Anicteric. - HENT: Moist mucous membranes. - LUNGS: Clear to auscultation bilateral ly, no wheezing, rhonchi, or rales. - CARDIOVASCULAR: Regular rate and rhyth m. No murmur. No JVD. Tachycardia - ABDOMEN: Soft, suprapubic tender and n on-distended. No palpable masses. - EXTREMITIES: No edema. Peripheral puls es 2+. Non-tender. - NEUROLOGIC: No focal neurological defi cits. CN II-XII grossly intact. - PSYCHIATRIC: Awake, Alert and oriented x 3. Appropriate mood and affect. - SKIN: No rashes or lesions. Warm. - LYMPH: No cervical lymphadenopathy. H&P: Results Labs Labs: Short CBC 04/19/24 Range/Units 18:37 WBC 14.8 H (4.5-10.0) K/mm3 Hgb 13.7 (12.0-15.0) g/dL Hct 40.7 (37.0-47.0) % Plt Count 344 (150-375) k/mm3 BMP 04/19/24 18:37 Sodium 140 Potassium 3.7 Chloride 107 Carbon Dioxide 21 L BUN 14 Creatinine 0.80 Glucose 116 H Calcium 9.7 Cardiac Enzymes 04/19/24 04/19/24 04/20/24 Range/Units 18:33 23:12 02:32 Troponin I < 0.012 < 0.012 < 0.012 (0.000-0.034) ng/mL Liver Function 04/19/24 Range/Units 18:37 Total Bilirubin 0.6 (0.2-1.3) mg/dL AST 25 (14-36) U/L ALT 24 (6-35) U/L Alkaline Phosphatase 85 (38-126) U/L Albumin 4.0 (3.5-5.1) g/dL Urine 04/19/24 Range/Units 20:48 Urine Color Dark yellow (Yellow) Urine Appearance Cloudy H (Clear) Urine pH 6.0 (5.0-9.0) Ur Specific [place] 1.024 (1.001-1.035) Urine Protein 1+ H (Negative) mg/dL Urine Glucose (UA) Negative (Negative) mg/dL Assessment and Plan Assessment and plan (1) Multifocal pneumonia: Code(s): J18.9 - Pneumonia, unspecified organism Status: Acute (2) Sepsis: Code(s): A41.9 - Sepsis, unspecified organism Status: Acute (3) Controlled diabetes mellitus: Qualifiers: Diabetes mellitus complication status: without complication 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: without fci use Diabetes mellitus type: type 2 Qualified Code(s): E11.9 - Type 2 diabetes mellitus without complications Code(s): E11.9 - Type 2 diabetes mellitus without complications Status: Chronic (4) Hypothyroidism, unspecified: Qualifiers: Hypothyroidism type: unspecified Qualified Code(s): E03.9 - Hypothyroidism, unspecified Code(s): E03.9 - Hypothyroidism, unspecified Status: Acute (5) Mixed hyperlipidemia: Code(s): E78.2 - Mixed hyperlipidemia Status: Acute Plan Multifocal pneumonia Patient has been having productive cough, and developed shortness breath CTA shows multifocal pneumonia Patient received doxycycline and ceftriaxone in the ED Need to rule out aspiration pneumonia Request speech evaluation Continue doxycycline and cefepime, and Flagyl Dyspnea Likely resulting from pneumonia Continue home medication Advair and albuterol inhaler p.r.n O2 therapy. UTI UA showed cloudy urine, pyuria, white blood cell 50 -100, microscopic hematuria Pending urine culture Antibiotics see above Follow renal ultrasound Diarrhea Subacute diarrhea, patient's diarrhea more 3 weeks Patient has intermittent nausea vomiting, denies black emesis, bloody stools Patient received cefdinir treatment 7 days Follow-up stool culture, C diff screening Consult GI Sepsis Patient has tachycardia tachypnea, leukocytosis 14,800 Meeting criteria of sepsis Possible from multifocal pneumonia Received normal saline bolus in the ED Pending blood culture urine culture CAD Denies chest pain Stable Continue Plavix 75 mg daily p.o. inter 30 mg daily p.o. History of DVT Continue Xarelto Hypothyroidism Continue Synthroid 150 mcg daily p.o. Follow-up TSH Hypertension Continue metoprolol 50 mg daily p.o. GERD Continue Protonix 20 mg daily p.o. Type 2 diabetes Hold metformin Start insulin sliding scale a.c. q.h.s. Hospitalist MIPS Advance Care Plan I have confirmed that the patient's Advanced Care Plan is present, code status is documented, or surrogate decision maker is listed in patient medical record.: Yes Medication Reconciliation I have utilized all available resources to obtain, update and review the patients current medications (includes all prescriptions, OTC, herbals, cannabis, and nutritional supplements).: Yes
[2024-04-20] MEDS: SODIUM CHLORIDE 0.9% IV 1,000 ML 100 ML IV CONT (08:53)
[2024-04-20] MEDS: metroNIDAZOLE 500 MG/ISO 100ML 500 MG/100 ML BAG 100 MG IVPB ×2 (08:55→16:27)
[2024-04-20] MEDS: CLOPIDOGREL BISULFATE 75 MG TABLET PO (09:02)
[2024-04-20 09:03] VITALS: PULSE 81
[2024-04-20] MEDS: ISOSORBIDE MONONITRATE 30 MG TAB.ER.24H PO (09:03)
[2024-04-20] MEDS: metFORMIN HCL XR 500 MG TAB.SR.24H PO ×2 (09:03→16:26)
[2024-04-20] MEDS: METOPROLOL SUCCINATE EXT REL 50 MG TABCR PO (09:03)
[2024-04-20] MEDS: DOXYCYCLINE HYCLATE 100 MG TABLET PO ×2 (09:03→20:07)
[2024-04-20] MEDS: SPIRONOLACTONE 25 MG TABLET PO ×2 (09:04→16:27)
[2024-04-20] MEDS: PANTOPRAZOLE SOD SESQUIHYDRATE 20 MG TAB PO (09:04)
[2024-04-20] MEDS: RIVAROXABAN 20 MG TABLET PO (09:04)
[2024-04-20] MEDS: LEVOTHYROXINE SODIUM 150 MCG TABLET PO (11:15)
--- NOTE | 2024-04-20 13:05 | PCSTNOTE ---
Please refer to the Bedside Swallow Evaluation in the EMR. Please note, silent aspiration cannot be ruled out at bedside. The above pleasant and cooperative pt was seen for a swallow evaluation at bedside. The pt positioned herself upright in the bed. She was alert & oriented and able to follow commands. She is currently on a regular diet and denies dysphagia. Oral mucosa is normal; natural dentition is in good condition; Oral peripheral exam revealed lingual and labial structures to be normal. She was able to dry swallow on command and exhibited clear vocal quality. She was tested with pudding, cracker and thin liquids in uncontrolled. The oral stages appeared WNL. No oral leakage or pocketing was noted. During the pharyngeal stage, swallow reflex appeared prompt & laryngeal elevation adequate. No overt s/s of aspiration were exhibited; however, silent aspiration cannot be ruled out at bedside. General impression is normal swallow ability. Recommendation: Continue current diet. Thank you for this referral.
[2024-04-20 14:00] VITALS: BP 135/59; PULSE 87; RESP 18; TEMP 35.7; O2SAT 98
--- NOTE | 2024-04-20 16:29 | WPDGICN ---
Assessment and Plan Assessment and plan (1) Chronic diarrhea: Code(s): K52.9 - Noninfective gastroenteritis and colitis, unspecified Status: Acute Assessment and Plan: colonoscopy 2019 negative recent use of abx for pneumonia- check c diff also h/o cholecystectomy- will start questran to see if will help get elastase in stool to check for epi expect to have more diarrhea since she is getting more abx for pneumonia supportive care, ok to use imodium as needed if no c diff no indication of colonoscopy tolerating diet (2) Multifocal pneumonia: Code(s): J18.9 - Pneumonia, unspecified organism Status: Acute Assessment and Plan: on abx (3) Sepsis: Code(s): A41.9 - Sepsis, unspecified organism Status: Acute (4) Chronic anticoagulation: Code(s): Z79.01 - skilled nursing (current) use of anticoagulants Status: Acute (5) Leukocytosis: Qualifiers: Leukocytosis type: other Qualified Code(s): D72.828 - Other elevated white blood cell count Code(s): D72.829 - Elevated white blood cell count, unspecified Status: Acute (6) Controlled diabetes mellitus: Qualifiers: Diabetes mellitus type: type 2 Diabetes mellitus halfway insulin use: without halfway use Diabetes mellitus complication status: without complication Qualified Code(s): E11.9 - Type 2 diabetes mellitus without complications Code(s): E11.9 - Type 2 diabetes mellitus without complications Status: Chronic GI Consult Note Consult date/time: 04/20/24 16:29 Reason for consult: chronic diarrhea HPI: Damaris Wilhelm is a 83 year old female with history of CAD, DVT on xarelto, hypothyroidism came to ther ED with productive cough, shortness breath. She started with productive cough more than 3 weeks, patient has large amount of thick phlegm with cough and treated with cefdinir 7 days treatment without any improvement. She came to ER, CTA chest No pulmonary embolism. Multiple patchy opacities in the right upper, lower and left lower lobes which may indicate focal pneumonia. Also wbc 14k, admitted to hospital with diagnosis of sepsis, pneumonia. She also has chronic diarrhea for years, worse after cholecystectomy. In fact I performed her colonoscopy 2019 because diarrhea, had diverticulosis normal colon otherwise including random colon bx. At home she takes kaopectate as needed. Recently with more frequent diarrhea and sometimes accidents, no abdominal pain. Review of Systems Constitutional: Constitutional: Denies body ache(s) Eyes: Eyes: Denies blurry vision ENT: Reports Normal hearing present Cardiovascular: Cardiovascular: Denies chest pain Respiratory: Respiratory: Reports chest congestion, Reports cough and Reports dyspnea Gastrointestinal: Gastrointestinal: Reports diarrhea Genitourinary: Genitourinary: Denies menorrhagia Musculoskeletal: Musculoskeletal: Denies neck pain Integumentary/Breasts: Skin/Breast: Denies rash Neurologic: Denies Abnormal speech present Psychiatric: Psychiatric: Denies behavioral changes [facility] Past Medical History Medical History (Updated 04/20/24 @ 16:36 by Otoniel Grant MD) Abdominal pain Abnormal fasting glucose Acute non-recurrent maxillary sinusitis Angina pectoris syndrome Anxiety At low risk for fall Benign paroxysmal positional vertigo due to bilateral vestibular disorder BMI 35.0-35.9,adult BMI 36.0-36.9,adult BMI 38.0-38.9,adult BMI 39.0-39.9,adult Body mass index (BMI) 40.0-44.9, adult (10/11/18) Breast cancer screening by mammogram Candidiasis of genitalia in female Chest pain Lexiscan stress test negative for ischemia 02/18/2022 Chest pain Chest pain in adult Chronic depression (~06/2021) Chronic diarrhea Controlled diabetes mellitus fasting glucose 115 with hemoglobin A1c 6.2 on 08/24/2022. Fasting glucose 112 with hemoglobin A1c 5.7 on 05/05/2023. Coronary artery 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 cardiac catheterization 04/02/2019 with diffuse mild coronary artery disease with 25-40% lesion of the LAD, diagonal, circumflex, and obtuse marginal with normal right coronary artery. Cardiac catheterization 07/21/2023 with moderate distal LAD lesion. Moderate lesion of the 1st diagonal with tandem distal lesion of 99%. Catheterization on 09/13/2023 with PCI and drug-eluting stent in the 1st diagonal on 09/13/2023. Deep vein thrombosis (DVT) of left lower extremity (11/09/21) Diarrhea Dizziness Dyspnea on exertion Elevated troponin Fibromyalgia Generalized weakness GERD (gastroesophageal reflux disease) Hirsutism History of pulmonary embolism Hypothyroidism, unspecified TSH suppressed at 0.35 08/24/2022. TSH 0.33 on 05/05/2023. Irritable bowel syndrome with diarrhea Leukocytosis WBC 12.8 on 11/11/2020. WBC 11.3 on 05/05/2023. Migraine without aura and without status migrainosus, not intractable Mixed hyperlipidemia Total cholesterol 160, triglycerides 126, HDL 52, LDL 85 on 08/24/2022. Cholesterol 221, triglycerides 172, HDL 59, LDL 139 with ratio of 3.7 on 05/05/2023. cholesterol 146, triglycerides 103, HDL 39, LDL 84 on 09/13/2023. Moderate persistent asthma without status asthmaticus without complication Nausea Neoplasm of skin of cheek Obesity (BMI 30-39.9) Obesity (BMI 35.0-39.9 without comorbidity) Pancreatitis Pulmonary embolism (11/09/21) Unstable angina pectoris Urinary tract infection Surgical History Surgical History Hx of cholecystectomy Family History Family History Sibling Family history of condition Family history of Parkinson's disease Father CHF (congestive heart failure) Social History Social History Smoking status: Never smoker Second hand tobacco smoke exposure: No Alcohol intake: never Substance use: never Substance use type: does not use Do You Feel Safe in your Home?: Yes Lack of Transportation: No Lack of Food: Never True Current Housing: I Have Housing Concerned About Future Housing: No Difficulty Paying Gas/Electric Bills: No Difficulty Paying for Meds: No Currently Unemployed: No Education: Bachelor's Degree Difficulty w/ Childcare or Family Care: No Living arrangements: with family Gender identity (if verbalized by the patient): Female Spiritual care concerns: No Meds Home Medications and Allergies Home Medications Medication Instructions Recorded Confirmed Type rivaroxaban 20 mg tablet (Xarelto) 20 mg PO QAM #30 tabs 07/04/23 04/20/24 Rx albuterol sulfate 90 mcg/actuation 2 puff inhalation Q4H PRN 07/18/23 04/20/24 Rx aerosol inhaler (Proventil HFA) Shortness Of Breath #18 grams metformin 500 mg tablet,extended 500 mg PO BID #60 tabs 07/19/23 04/20/24 Rx release 24 hr coQ10 (ubiquinol) 100 mg capsule 100 mg PO DAILY 07/20/23 04/20/24 History clopidogrel 75 mg tablet 75 mg PO QAM #90 tabs 09/13/23 04/20/24 Rx isosorbide mononitrate 30 mg 30 mg PO QAM #90 tabs 09/13/23 04/20/24 Rx tablet,extended release 24 hr metoprolol succinate 50 mg 50 mg PO QAM #90 tabs 09/13/23 04/20/24 Rx tablet,extended release 24 hr fluticasone 250 mcg-salmeterol 50 1 inh inhalation BID #60 ea 09/21/23 04/20/24 Rx mcg/dose blistr powdr for inhalation (Advair Diskus) pantoprazole 20 mg tablet,delayed 20 mg PO QAM 4 weeks #30 tabs 10/17/23 04/20/24 Rx release levothyroxine 150 mcg tablet 150 mcg PO DAILY #90 tabs 11/16/23 04/20/24 Rx (Synthroid) spironolactone 25 mg tablet 25 mg PO BID #120 tabs 02/08/24 04/20/24 Rx Allergies Allergy/AdvReac Type Severity Reaction Status Date / Time Penicillins Allergy Unknown Hives Verified 09/09/23 15:21 montelukast AdvReac Intermediate Hallucinating Verified 09/09/23 15:21 suicidial ideation morphine AdvReac Hallucinati Verified 09/09/23 15:21 ng Vital Signs Vital Signs - 24 hr 04/19/24 19:25 04/19/24 19:16 04/19/24 19:46 Temperature Pulse Rate 88 80 Respiratory Rate 18 20 Blood Pressure 141/77 H 120/71 Pulse Oximetry 97 97 95 Oxygen Delivery Room Air 04/19/24 20:16 04/19/24 21:33 04/19/24 22:00 Temperature Pulse Rate 86 79 80 Respiratory Rate 15 17 19 Blood Pressure 121/68 Pulse Oximetry 96 97 98 Oxygen Delivery 04/19/24 23:35 04/19/24 23:17 04/20/24 00:50 Temperature 98.4 F Pulse Rate 79 80 79 Respiratory Rate 18 12 18 Blood Pressure 143/73 H 141/68 H Pulse Oximetry 98 98 99 Oxygen Delivery 04/20/24 00:30 04/20/24 05:35 04/20/24 09:03 Temperature 97 F L Pulse Rate 81 81 Respiratory Rate 18 Blood Pressure 146/64 H Pulse Oximetry 98 Oxygen Delivery Room Air 04/20/24 08:00 04/20/24 14:00 Temperature 96.3 F L Pulse Rate 87 Respiratory Rate 18 Blood Pressure 135/59 L Pulse Oximetry 98 Oxygen Delivery Room Air Exam Const: General: comfortable and no acute distress HENMT: Face/Nose/Sinus: Normal nares present Eyes: General: appearance normal, both eyes and all related structures Neck: Neck: supple Resp: Auscultation: clear to auscultation bilaterally Cardio: Rate: regular rate Rhythm: regular rhythm GI: Inspection: non-distended GI Palp: Yes Soft to palpation and No Tenderness to palpation present (GI) Auscultation: normal bowel sounds Skin: General skin exam: normal color Neuro: Speech: normal speech Motor exam (neuro): 5/5 motor strength present throughout Extrem: General: normal to inspection Psych: Mental Status: mental status grossly normal Results Labs 04/19/24 18:37 04/19/24 18:37 Labs: Short CBC 04/19/24 Range/Units 18:37 WBC 14.8 H (4.5-10.0) K/mm3 Hgb 13.7 (12.0-15.0) g/dL Hct 40.7 (37.0-47.0) % Plt Count 344 (150-375) k/mm3 BMP 04/19/24 18:37 Sodium 140 Potassium 3.7 Chloride 107 Carbon Dioxide 21 L BUN 14 Creatinine 0.80 Glucose 116 H Calcium 9.7 Cardiac Enzymes 04/19/24 04/19/24 04/20/24 Range/Units 18:33 23:12 02:32 Troponin I < 0.012 < 0.012 < 0.012 (0.000-0.034) ng/mL Liver Function 04/19/24 Range/Units 18:37 Total Bilirubin 0.6 (0.2-1.3) mg/dL AST 25 (14-36) U/L ALT 24 (6-35) U/L Alkaline Phosphatase 85 (38-126) U/L Albumin 4.0 (3.5-5.1) g/dL Urine 04/19/24 Range/Units 20:48 Urine Color Dark yellow (Yellow) Urine Appearance Cloudy H (Clear) Urine pH 6.0 (5.0-9.0) Ur Specific [place] 1.024 (1.001-1.035) Urine Protein 1+ H (Negative) mg/dL Urine Glucose (UA) Negative (Negative) mg/dL
[2024-04-20 19:50] VITALS: BP 115/45; PULSE 86; RESP 20; TEMP 37.1; O2SAT 97
[2024-04-20] MEDS: FLUTICASONE/SALMETEROL 115-21 MCG INHALER 1 PUFF 2 PUFF INHALATION (20:03)
[2024-04-20] MEDS: ALBUTEROL SULFATE (*SP) AEROSOL 1 PUFF 2 PUFF INHALATION (20:03)
[2024-04-20] MEDS: cefTRIAXone 2 GM/NS 100 ML 2 GM/100 ML BAG IVPB (20:08)
[2024-04-21] MEDS: metroNIDAZOLE 500 MG/ISO 100ML 500 MG/100 ML BAG 100 MG IVPB ×3 (01:04→17:00)
[2024-04-21 05:25] VITALS: BP 136/58; PULSE 93; RESP 20; TEMP 36.7; O2SAT 97
[2024-04-21] MEDS: LEVOTHYROXINE SODIUM 150 MCG TABLET PO (06:30)
--- NOTE | 2024-04-21 08:16 | PM.IMPN ---
Progress Note: A&P Assessment and Plan (1) Multifocal pneumonia: Code(s): J18.9 - Pneumonia, unspecified organism Status: Acute (2) Sepsis: Code(s): A41.9 - Sepsis, unspecified organism Status: Acute (3) Controlled diabetes mellitus: Qualifiers: Diabetes mellitus complication status: without complication Diabetes mellitus residential insulin use: without residential use Diabetes mellitus type: type 2 Qualified Code(s): E11.9 - Type 2 diabetes mellitus without complications Code(s): E11.9 - Type 2 diabetes mellitus without complications Status: Chronic (4) Hypothyroidism, unspecified: Qualifiers: Hypothyroidism type: unspecified Qualified Code(s): E03.9 - Hypothyroidism, unspecified Code(s): E03.9 - Hypothyroidism, unspecified Status: Acute (5) Mixed hyperlipidemia: Code(s): E78.2 - Mixed hyperlipidemia Status: Acute Plan Multifocal pneumonia Patient has been having productive cough, and developed shortness breath CTA shows multifocal pneumonia Patient received doxycycline and ceftriaxone in the ED Need to rule out aspiration pneumonia Request speech evaluation Continue doxycycline and cefepime, and Flagyl Lung nodule on CT scan Nodule in the left lower lobe measuring 1.1 cm. 3 months follow-up per PCP Dyspnea Likely resulting from pneumonia Continue home medication Advair and albuterol inhaler p.r.n O2 therapy. UTI UA showed cloudy urine, pyuria, white blood cell 50 -100, microscopic hematuria Pending urine culture Antibiotics see above Follow renal ultrasound Diarrhea Subacute diarrhea, patient's diarrhea more 3 weeks Patient has intermittent nausea vomiting, denies black emesis, bloody stools Patient received cefdinir treatment 7 days Follow-up stool culture, C diff screening Consulted GI, appreciate GI consultation, no indication of colonoscopy Sepsis Patient has tachycardia tachypnea, leukocytosis 14,800 Meeting criteria of sepsis Possible from multifocal pneumonia Received normal saline bolus in the ED No growth from blood culture urine culture CAD Denies chest pain Stable Continue Plavix 75 mg daily p.o. inter 30 mg daily p.o. History of DVT Continue Xarelto Hypothyroidism Continue Synthroid 150 mcg daily p.o. Follow-up TSH Hypertension Continue metoprolol 50 mg daily p.o. GERD Continue Protonix 20 mg daily p.o. Type 2 diabetes Hold metformin Start insulin sliding scale a.c. q.h.s. Subjective Date/time seen: 04/21/24 08:16 Interval history: I saw examined patient today, patient feels better, still has some cough and shortness of breath Patient had no bowel movement yesterday, had 1 bowel movement today. Patient has loose stool without watery diarrhea Exam Narrative: GENERAL: Pleasant, in no acute distress. Well-nourished. - EYES: EOMI. Anicteric. - HENT: Moist mucous membranes. - LUNGS: Clear to auscultation bilaterally, no wheezing, rhonchi, or rales. - CARDIOVASCULAR: Regular rate and rhythm. No murmur. No JVD. Tachycardia - ABDOMEN: Soft, suprapubic tender and non-distended. No palpable masses. - EXTREMITIES: No edema. Peripheral pulses 2+. Non-tender. - NEUROLOGIC: No focal neurological deficits. CN II-XII grossly intact. - PSYCHIATRIC: Awake, Alert and oriented x 3. Appropriate mood and affect. - SKIN: No rashes or lesions. Warm. - LYMPH: No cervical lymphadenopathy. Objective Data Vital Signs Vital Signs: Vital Signs - 24 hr 04/20/24 09:03 04/20/24 14:00 04/20/24 20:00 Temperature 96.3 F L Pulse Rate 81 87 Respiratory Rate 18 Blood Pressure 135/59 L Pulse Oximetry 98 Oxygen Delivery Room Air 04/20/24 19:50 04/21/24 05:25 Temperature 98.8 F 98.1 F Pulse Rate 86 93 Respiratory Rate 20 20 Blood Pressure 115/45 L 136/58 L Pulse Oximetry 97 97 Oxygen Delivery Intake/Output Intake/Output: Intake & Output 04/18/24 04/19/24 04/20/24 04/21/24 23:59 23:59 23:59 23:59 Intake Total 1200 798 500 Output Total 700 Balance 1200 798 -200 Meds/Results Medications: Active Medications Generic Name Dose Route Start Last Admin Trade Name Freq PRN Reason Stop Dose Admin Albuterol 2 puff 04/20/24 08:15 04/20/24 20:03 Albuterol Sulfate (*Sp) Aerosol 1 Puff INHALATION 2 puff Q4H PRN Administration Shortness Of Breath Cholestyramine Resin 4 gm 04/21/24 10:00 Cholestyramine Light 4 Gm Powd.Pack PO QAM@1000 [facility] Clopidogrel Bisulfate 75 mg 04/20/24 09:00 04/20/24 09:02 Clopidogrel Bisulfate 75 Mg Tablet PO 75 mg QAM CHRISTIANO Administration Doxycycline Hyclate 100 mg 04/20/24 09:00 04/20/24 20:07 Doxycycline Hyclate 100 Mg Tablet PO 100 mg Q12HR CHRISTIANO Administration Ceftriaxone Sodium 2 gm in 100 mls @ 200 mls/hr 04/20/24 20:00 04/20/24 20:08 Rocephin 2 Gm/Ns 100 Ml IVPB 200 mls/hr Q24H CHRISTIANO Administration Metronidazole 500 mg in 100 mls @ 100 mls/hr 04/20/24 09:00 04/21/24 02:04 Flagyl 500 Mg/Iso Soln 100 Ml IVPB Infused Q8H CHRISTIANO Infusion Sodium Chloride 1,000 mls @ 100 mls/hr 04/20/24 08:30 04/20/24 08:53 Normal Saline Iv IV CONT 100 mls/hr .Q10H CHRISTIANO Administration Isosorbide Mononitrate 30 mg 04/20/24 09:00 04/20/24 09:03 Isosorbide Mononitrate 30 Mg Tab.Er.24h PO 30 mg QAM CHRISTIANO Administration Levothyroxine Sodium 150 mcg 04/20/24 11:00 04/21/24 06:30 Levothyroxine Sodium 150 Mcg Tablet PO 150 mcg DAILY@0630 HCRISTIANO Administration Metformin HCl 500 mg 04/20/24 09:00 04/20/24 16:26 Metformin Hcl Xr 500 Mg Tab.Sr.24h PO 500 mg BID CHRISTIANO Administration Metoprolol Succinate 50 mg 04/20/24 09:00 04/20/24 09:03 Metoprolol Succinate Ext Rel 50 Mg Tabcr PO 50 mg QAM CHRISTIANO Administration Per P&T 1 each 04/20/24 08:30 Recommendation, XX 04/21/24 08:29 Nonformulary PRN PRN Nutritional PROTOCOL Supplements And Vitamins Will Be Put On H Pantoprazole Sodium 20 mg 04/20/24 09:00 04/20/24 09:04 Pantoprazole Sod Sesquihydrate 20 Mg Tab PO 20 mg QAM CHRISTIANO Administration Rivaroxaban 20 mg 04/20/24 09:00 04/20/24 09:04 Rivaroxaban 20 Mg Tablet PO 20 mg QAM CHRISTIANO Administration Fluticasone/Salmeterol 2 puff 04/20/24 09:00 04/20/24 20:03 Fluticasone/Salmeterol 115-21 Mcg Inhaler 1 Puff INHALATION 2 puff Q12HRT CHRISTIANO Administration Spironolactone 25 mg 04/20/24 09:00 04/20/24 16:27 Spironolactone 25 Mg Tablet PO 25 mg BID CHRISTIANO Administration Radiology Results: ITS Impressions Chest X-Ray 04/19/24 16:13 IMPRESSION: 1. Small wedge-shaped opacity at the lateral right midlung zone which could represent atelectasis or pneumonia. Chest CTA 04/19/24 21:50 IMPRESSION: 1. No pulmonary embolism. 2. Multiple patchy opacities in the right upper, lower and left lower lobes which may indicate focal pneumonia. Follow-up to resolution is advised. Nodule in the left lower lobe measuring 1.1 cm. 3 months follow-up is advised. 3. Soft tissue density in the left kidney. 3 months follow-up advised. 4. Small sliding hiatus hernia.
[2024-04-21 08:50] LABS: Basophils Percent Auto 0.3 % (0.2-1.2); Eosinophils Absolute Auto 0.1 K/mm3 (0-0.3); Eosinophils Percent Auto 1.5 % (0-4.4); Hematocrit 37.2 % (37.0-47.0); Hemoglobin 11.9 g/dL (12.0-15.0); Immature Granulocyte Absolute 0.04 K/mm3 (0.00-0.031); Immature Granulocyte Percent A 0.4 % (0-0.5); Lymphocytes Absolute Auto 2.54 K/mm3 (0.9-3.2); Mean Corpuscular Hemoglobin 30.1 pg (26-34); Mean Corpuscular Volume 93.9 fl (80-100); Mean Platelet Volume 10.5 fl (7.4-10.4); Monocytes Absolute Auto 0.8 K/mm3 (0.1-0.6); Monocytes Percent Auto 8.1 % (2.6-8.5); Neutrophils Absolute Auto 5.9 K/mm3 (1.3-6.7); Neutrophils Percent Auto 62.7 % (45.5-73.1); Platelet Count Result 285 k/mm3 (150-375); Red Blood Count 3.96 M/mm3 (4.2-5.4); Red Cell Distribution Width 14.4 % (11.5-14.5); White Blood Count 9.4 K/mm3 (4.5-10.0)
[2024-04-21] MEDS: FLUTICASONE/SALMETEROL 115-21 MCG INHALER 1 PUFF 2 PUFF INHALATION ×2 (09:12→19:53)
[2024-04-21 09:14] LABS: Anion Gap 10 mmol/L (4-12); Blood Urea Nitrogen 8 mg/dL (7-17); Calcium 8.7 mg/dL (8.4-10.2); Carbon Dioxide 21 mmol/L (22-30); Chloride 113 mmol/L (98-107); Estimated CRCL calculation 67 ml/min; Estimated Glomerular Filt Rate > 60; Glucose 110 mg/dL (65-110); Potassium 3.5 mmol/L (3.4-5.0); Sodium 144 mmol/L (137-145)
[2024-04-21 09:15] VITALS: O2SAT 97
[2024-04-21 09:30] VITALS: PULSE 90
[2024-04-21] MEDS: DOXYCYCLINE HYCLATE 100 MG TABLET PO ×2 (09:30→20:15)
[2024-04-21] MEDS: RIVAROXABAN 20 MG TABLET PO (09:30)
[2024-04-21] MEDS: ISOSORBIDE MONONITRATE 30 MG TAB.ER.24H PO (09:30)
[2024-04-21] MEDS: CLOPIDOGREL BISULFATE 75 MG TABLET PO (09:30)
[2024-04-21] MEDS: SPIRONOLACTONE 25 MG TABLET PO ×2 (09:30→16:59)
[2024-04-21] MEDS: PANTOPRAZOLE SOD SESQUIHYDRATE 20 MG TAB PO (09:30)
[2024-04-21] MEDS: metFORMIN HCL XR 500 MG TAB.SR.24H PO ×2 (09:30→16:59)
[2024-04-21] MEDS: METOPROLOL SUCCINATE EXT REL 50 MG TABCR PO (09:30)
--- NOTE | 2024-04-21 09:48 | WPDGIPROGNO ---
Progress Note: A&P Assessment and Plan (1) Chronic diarrhea: Code(s): K52.9 - Noninfective gastroenteritis and colitis, unspecified Status: Acute Assessment and Plan: chronic, colonoscopy in the past with normal bx start questran (post cholecystectomy), will expect now more diarrhea given abx use follow-up in office, will follow as needed (2) Sepsis: Code(s): A41.9 - Sepsis, unspecified organism Status: Acute Assessment and Plan: resolved (3) Multifocal pneumonia: Code(s): J18.9 - Pneumonia, unspecified organism Status: Acute Assessment and Plan: on abx (4) Chronic anticoagulation: Code(s): Z79.01 - alf (current) use of anticoagulants Status: Acute (5) Leukocytosis: Qualifiers: Leukocytosis type: other Qualified Code(s): D72.828 - Other elevated white blood cell count Code(s): D72.829 - Elevated white blood cell count, unspecified Status: Acute Assessment and Plan: resolved Subjective Date/time seen: 04/21/24 09:48 Interval history: feeling better, still with diarrhea Review of Systems Review of Systems: All systems reviewed & are unremarkable except as noted in HPI and below Exam Const: General: comfortable and no acute distress HENMT: Face/Nose/Sinus: Normal nares present Eyes: General: appearance normal, both eyes and all related structures Neck: Neck: supple Resp: Auscultation: clear to auscultation bilaterally Cardio: Rate: regular rate Rhythm: regular rhythm GI: Inspection: non-distended GI Palp: Yes Soft to palpation and No Tenderness to palpation present (GI) Auscultation: normal bowel sounds Skin: General skin exam: normal color Neuro: Speech: normal speech Motor exam (neuro): 5/5 motor strength present throughout Extrem: General: normal to inspection Psych: Mental Status: mental status grossly normal Objective Data Vital Signs Vital Signs: Vital Signs - 24 hr 04/20/24 14:00 04/20/24 20:00 04/20/24 19:50 Temperature 96.3 F L 98.8 F Pulse Rate 87 86 Respiratory Rate 18 20 Blood Pressure 135/59 L 115/45 L Pulse Oximetry 98 97 Oxygen Delivery Room Air 04/21/24 05:25 04/21/24 09:15 04/21/24 09:30 Temperature 98.1 F Pulse Rate 93 90 Respiratory Rate 20 Blood Pressure 136/58 L Pulse Oximetry 97 97 Oxygen Delivery Room Air Intake/Output Intake/Output: Intake & Output 04/18/24 04/19/24 04/20/24 04/21/24 23:59 23:59 23:59 23:59 Intake Total 1200 798 500 Output Total 700 Balance 1200 798 -200 Meds/Results Medications: Active Medications Generic Name Dose Route Start Last Admin Trade Name Freq PRN Reason Stop Dose Admin Albuterol 2 puff 04/20/24 08:15 04/20/24 20:03 Albuterol Sulfate (*Sp) Aerosol 1 Puff INHALATION 2 puff Q4H PRN Administration Shortness Of Breath Cholestyramine Resin 4 gm 04/21/24 10:00 Cholestyramine Light 4 Gm Powd.Pack PO QAM@1000 CHRISTIANO Clopidogrel Bisulfate 75 mg 04/20/24 09:00 04/21/24 09:30 Clopidogrel Bisulfate 75 Mg Tablet PO 75 mg QAM CHRISTIANO Administration Doxycycline Hyclate 100 mg 04/20/24 09:00 04/21/24 09:30 Doxycycline Hyclate 100 Mg Tablet PO 100 mg Q12HR CHRISTIANO Administration Ceftriaxone Sodium 2 gm in 100 mls @ 200 mls/hr 04/20/24 20:00 04/20/24 20:08 Rocephin 2 Gm/Ns 100 Ml IVPB 200 mls/hr Q24H CHRISTIANO Administration Metronidazole 500 mg in 100 mls @ 100 mls/hr 04/20/24 09:00 04/21/24 09:30 Flagyl 500 Mg/Iso Soln 100 Ml IVPB 100 mls/hr Q8H CHRISTIANO Administration Sodium Chloride 1,000 mls @ 100 mls/hr 04/20/24 08:30 04/20/24 08:53 Normal Saline Iv IV CONT 100 mls/hr .Q10H CHRISTIANO Administration Isosorbide Mononitrate 30 mg 04/20/24 09:00 04/21/24 09:30 Isosorbide Mononitrate 30 Mg Tab.Er.24h PO 30 mg QAM CHRISTIANO Administration Levothyroxine Sodium 150 mcg 04/20/24 11:00 04/21/24 06:30 Levothyroxine Sodium 150 Mcg Tablet PO 150 mcg DAILY@0630 CHRISTIANO Administration Metformin HCl 500 mg 04/20/24 09:00 04/21/24 09:30 Metformin Hcl Xr 500 Mg Tab.Sr.24h PO 500 mg BID CHRISTIANO Administration Metoprolol Succinate 50 mg 04/20/24 09:00 04/21/24 09:30 Metoprolol Succinate Ext Rel 50 Mg Tabcr PO 50 mg QAM CHRISTIANO Administration Pantoprazole Sodium 20 mg 04/20/24 09:00 04/21/24 09:30 Pantoprazole Sod Sesquihydrate 20 Mg Tab PO 20 mg QAM CHRISTIANO Administration Rivaroxaban 20 mg 04/20/24 09:00 04/21/24 09:30 Rivaroxaban 20 Mg Tablet PO 20 mg QAM CHRISTIANO Administration Fluticasone/Salmeterol 2 puff 04/20/24 09:00 04/21/24 09:12 Fluticasone/Salmeterol 115-21 Mcg Inhaler 1 Puff INHALATION 2 puff Q12HRT CHRISTIANO Administration Spironolactone 25 mg 04/20/24 09:00 04/21/24 09:30 Spironolactone 25 Mg Tablet PO 25 mg BID CHRISTIANO Administration Radiology Results: ITS Impressions Chest X-Ray 04/19/24 16:13 IMPRESSION: 1. Small wedge-shaped opacity at the lateral right midlung zone which could represent atelectasis or pneumonia. Chest CTA 04/19/24 21:50 IMPRESSION: 1. No pulmonary embolism. 2. Multiple patchy opacities in the right upper, lower and left lower lobes which may indicate focal pneumonia. Follow-up to resolution is advised. Nodule in the left lower lobe measuring 1.1 cm. 3 months follow-up is advised. 3. Soft tissue density in the left kidney. 3 months follow-up advised. 4. Small sliding hiatus hernia. Labs Labs: Laboratory Results - last 24 hr 04/21/24 08:30 WBC 9.4 RBC 3.96 L Hgb 11.9 L Hct 37.2 MCV 93.9 MCH 30.1 MCHC 32.0 RDW 14.4 Plt Count 285 MPV 10.5 H Immature Gran % (Auto) 0.4 Neut % (Auto) 62.7 Lymph % (Auto) 27.0 [place] % (Auto) 8.1 Eos % (Auto) 1.5 Baso % (Auto) 0.3 Lymph # (Auto) 2.54 [place] # (Auto) 0.8 H Eos # (Auto) 0.1 Baso # (Auto) 0.0 Abs Immat Gran (auto) 0.04 H Absolute Neuts (auto) 5.9 Absolute Nucleated RBC 0.000 Nucleated RBC % 0.0 Sodium 144 Potassium 3.5 Chloride 113 H Carbon Dioxide 21 L Anion Gap 10 BUN 8 D Creatinine 0.60 L Estim Creat Clear Calc 67 Estimated GFR > 60 Glucose 110 Calcium 8.7
[2024-04-21 10:55] LABS: Toxigenic C. Diff NEGATIVE (NEGATIVE)
[2024-04-21] MEDS: CHOLESTYRAMINE LIGHT 4 GM POWD.PACK PO (12:11)
[2024-04-21] MEDS: SODIUM CHLORIDE 0.9% IV 1,000 ML 100 ML IV CONT (13:52)
[2024-04-21 14:00] VITALS: BP 151/61; PULSE 90; RESP 18; TEMP 36.8; O2SAT 95
[2024-04-21 19:56] VITALS: PULSE 86; O2SAT 96
[2024-04-21] MEDS: cefTRIAXone 2 GM/NS 100 ML 2 GM/100 ML BAG IVPB (20:15)
[2024-04-21 20:43] VITALS: BP 136/66; PULSE 85; RESP 16; TEMP 36.4; O2SAT 97
[2024-04-22] MEDS: metroNIDAZOLE 500 MG/ISO 100ML 500 MG/100 ML BAG 100 MG IVPB ×2 (00:48→09:11)
[2024-04-22] MEDS: SODIUM CHLORIDE 0.9% IV 1,000 ML 100 ML IV CONT ×3 (00:50→20:29)
--- NOTE | 2024-04-22 01:31 | PC.NURSE ---
Daylight Savings Time For Daylight Savings Time Ending in the Fall - Clocks are moved back. For Daylight Savings Time Beginning in the Spring - Clocks are moved ahead. For [facility], the time of change occurs at 0200 hrs. Time is taken from the banquet server on call. This entry on the patient's chart recognizes the change in time reflected during documentation. Example: 2 entries for vital signs may be charted for 0200 hrs.
[2024-04-22] MEDS: LEVOTHYROXINE SODIUM 150 MCG TABLET PO (05:52)
[2024-04-22 05:53] VITALS: BP 120/76; PULSE 72; RESP 18; TEMP 36.8; O2SAT 98
[2024-04-22 07:20] LABS: Basophils Percent Auto 0.4 % (0.2-1.2); Eosinophils Absolute Auto 0.2 K/mm3 (0-0.3); Eosinophils Percent Auto 1.5 % (0-4.4); Hematocrit 36.2 % (37.0-47.0); Hemoglobin 11.6 g/dL (12.0-15.0); Immature Granulocyte Absolute 0.05 K/mm3 (0.00-0.031); Immature Granulocyte Percent A 0.5 % (0-0.5); Lymphocytes Absolute Auto 2.95 K/mm3 (0.9-3.2); Lymphocytes Percent Auto 26.6 % (18.3-44.2); Mean Corpuscular Hemoglobin 30.1 pg (26-34); Mean Platelet Volume 10.8 fl (7.4-10.4); Monocytes Absolute Auto 0.8 K/mm3 (0.1-0.6); Monocytes Percent Auto 7.3 % (2.6-8.5); Neutrophils Absolute Auto 7.1 K/mm3 (1.3-6.7); Neutrophils Percent Auto 63.7 % (45.5-73.1); Platelet Count Result 290 k/mm3 (150-375); Red Blood Count 3.85 M/mm3 (4.2-5.4); Red Cell Distribution Width 14.7 % (11.5-14.5); White Blood Count 11.1 K/mm3 (4.5-10.0)
[2024-04-22 07:46] VITALS: PULSE 77; O2SAT 94
[2024-04-22] MEDS: FLUTICASONE/SALMETEROL 115-21 MCG INHALER 1 PUFF 2 PUFF INHALATION ×2 (07:46→21:12)
--- NOTE | 2024-04-22 08:20 | P.PNIM_ITS ---
Progress Note: A&P Assessment and Plan (1) Multifocal pneumonia: Code(s): J18.9 - Pneumonia, unspecified organism Status: Acute (2) Sepsis: Code(s): A41.9 - Sepsis, unspecified organism Status: Acute (3) Controlled diabetes mellitus: Qualifiers: Diabetes mellitus complication status: without complication Diabetes mellitus residential insulin use: without residential use Diabetes mellitus type: type 2 Qualified Code(s): E11.9 - Type 2 diabetes mellitus without complications Code(s): E11.9 - Type 2 diabetes mellitus without complications Status: Chronic (4) Hypothyroidism, unspecified: Qualifiers: Hypothyroidism type: unspecified Qualified Code(s): E03.9 - Hypothyroidism, unspecified Code(s): E03.9 - Hypothyroidism, unspecified Status: Acute (5) Mixed hyperlipidemia: Code(s): E78.2 - Mixed hyperlipidemia Status: Acute Plan Multifocal pneumonia Patient has been having productive cough, and developed shortness breath CTA shows multifocal pneumonia Patient received doxycycline and ceftriaxone in the ED Need to rule out aspiration pneumonia Request speech evaluation on doxycycline and cefepime, and Flagyl change to levaquin po 500mg Lung nodule on CT scan Nodule in the left lower lobe measuring 1.1 cm. 3 months follow-up per PCP Dyspnea Likely resulting from pneumonia Continue home medication Advair and albuterol inhaler p.r.n O2 therapy. UTI UA showed cloudy urine, pyuria, white blood cell 50 -100, microscopic hematuria urine culture : No growth Antibiotics see above Follow renal ultrasound Diarrhea Subacute diarrhea, patient's diarrhea more 3 weeks Patient has intermittent nausea vomiting, denies black emesis, bloody stools Patient received cefdinir treatment 7 days Follow-up stool culture, pending Stool pancreas elastase pending C diff screening: negative Consulted GI, appreciate GI consultation, no indication of colonoscopy Sepsis Patient has tachycardia tachypnea, leukocytosis 14,800 Meeting criteria of sepsis Possible from multifocal pneumonia Received normal saline bolus in the ED No growth from blood culture urine culture CAD Denies chest pain Stable Continue Plavix 75 mg daily p.o. inter 30 mg daily p.o. History of DVT Continue Xarelto Hypothyroidism Continue Synthroid 150 mcg daily p.o. Follow-up TSH Hypertension Continue metoprolol 50 mg daily p.o. GERD Continue Protonix 20 mg daily p.o. Type 2 diabetes Hold metformin Start insulin sliding scale a.c. q.h.s. may dc pt tm if patient condition continue to improve Subjective Date/time seen: 04/22/24 08:20 Interval history: I saw examined patient today, patient feels nauseous, vomited once. Denies abdomen pain, had 1 bowel movement today, soft stool Patient is afebrile, blood pressure stable, pulse ox 94 on room air, Exam Narrative: GENERAL: Pleasant, in no acute distress. Well-nourished. - EYES: EOMI. Anicteric. - HENT: Moist mucous membranes. - LUNGS: Clear to auscultation bilateral ly, no wheezing, rhonchi, or rales. - CARDIOVASCULAR: Regular rate and rhyth m. No murmur. No JVD. Tachycardia - ABDOMEN: Soft, suprapubic tender and n on-distended. No palpable masses. - EXTREMITIES: No edema. Peripheral puls es 2+. Non-tender. - NEUROLOGIC: No focal neurological defi cits. CN II-XII grossly intact. - PSYCHIATRIC: Awake, Alert and oriented x 3. Appropriate mood and affect. - SKIN: No rashes or lesions. Warm. - LYMPH: No cervical lymphadenopathy. Objective Data Vital Signs Vital Signs: Vital Signs - 24 hr 04/21/24 09:30 04/21/24 14:00 04/21/24 19:56 Temperature 98.3 F Pulse Rate 90 90 86 Respiratory Rate 18 Blood Pressure 151/61 H Pulse Oximetry 95 96 Oxygen Delivery Room Air Fraction of Inspired Oxygen 21 04/21/24 20:43 04/21/24 20:00 04/22/24 05:53 Temperature 97.5 F L 98.2 F Pulse Rate 85 72 Respiratory Rate 16 18 Blood Pressure 136/66 120/76 Pulse Oximetry 97 98 Oxygen Delivery Room Air Fraction of Inspired Oxygen 04/22/24 07:46 04/22/24 07:46 Temperature Pulse Rate 77 Respiratory Rate Blood Pressure Pulse Oximetry 94 Oxygen Delivery Room Air Fraction of Inspired Oxygen 21 Intake/Output Intake/Output: Intake & Output 04/19/24 04/20/24 04/21/24 04/22/24 23:59 23:59 23:59 22:59 Intake Total 1200 1898 1400 1600 Output Total 702 Balance 1200 2717 453 0558 Meds/Results Medications: Active Medications Generic Name Dose Route Start Last Admin Trade Name Freq PRN Reason Stop Dose Admin Albuterol 2 puff 04/20/24 08:15 04/20/24 20:03 Albuterol Sulfate (*Sp) Aerosol 1 Puff INHALATION 2 puff Q4H PRN Administration Shortness Of Breath Cholestyramine Resin 4 gm 04/21/24 10:00 04/21/24 12:11 Cholestyramine Light 4 Gm Powd.Pack PO 4 gm QAM@1000 CHRISTIANO Administration Clopidogrel Bisulfate 75 mg 04/20/24 09:00 04/21/24 09:30 Clopidogrel Bisulfate 75 Mg Tablet PO 75 mg QAM CHRISTIANO Administration Doxycycline Hyclate 100 mg 04/20/24 09:00 04/21/24 20:15 Doxycycline Hyclate 100 Mg Tablet PO 100 mg Q12HR CHRISTIANO Administration Ceftriaxone Sodium 2 gm in 100 mls @ 200 mls/hr 04/20/24 20:00 04/21/24 20:45 Rocephin 2 Gm/Ns 100 Ml IVPB Infused Q24H CHRISTIANO Infusion Metronidazole 500 mg in 100 mls @ 100 mls/hr 04/20/24 09:00 04/22/24 01:48 CDT Flagyl 500 Mg/Iso Soln 100 Ml IVPB Infused Q8H CHRISTIANO Infusion Sodium Chloride 1,000 mls @ 100 mls/hr 04/20/24 08:30 04/22/24 00:50 Normal Saline Iv IV CONT 100 mls/hr .Q10H CHRISTIANO Administration Isosorbide Mononitrate 30 mg 04/20/24 09:00 04/21/24 09:30 Isosorbide Mononitrate 30 Mg Tab.Er.24h PO 30 mg QAM CHRISTIANO Administration Levothyroxine Sodium 150 mcg 04/20/24 11:00 04/22/24 05:52 Levothyroxine Sodium 150 Mcg Tablet PO 150 mcg DAILY@0630 CHRISTIANO Administration Metformin HCl 500 mg 04/20/24 09:00 04/21/24 16:59 Metformin Hcl Xr 500 Mg Tab.Sr.24h PO 500 mg BID CHRISTIANO Administration Metoprolol Succinate 50 mg 04/20/24 09:00 04/21/24 09:30 Metoprolol Succinate Ext Rel 50 Mg Tabcr PO 50 mg QAM CHRISTIANO Administration Pantoprazole Sodium 20 mg 04/20/24 09:00 04/21/24 09:30 Pantoprazole Sod Sesquihydrate 20 Mg Tab PO 20 mg QAM CHRISTIANO Administration Rivaroxaban 20 mg 04/20/24 09:00 04/21/24 09:30 Rivaroxaban 20 Mg Tablet PO 20 mg QAM CHRISTIANO Administration Fluticasone/Salmeterol 2 puff 04/20/24 09:00 04/22/24 07:46 Fluticasone/Salmeterol 115-21 Mcg Inhaler 1 Puff INHALATION 2 puff Q12HRT CHRISTIANO Administration Spironolactone 25 mg 04/20/24 09:00 04/21/24 16:59 Spironolactone 25 Mg Tablet PO 25 mg BID CHRISTIANO Administration Radiology Results: ITS Impressions Chest X-Ray 04/19/24 16:13 IMPRESSION: 1. Small wedge-shaped opacity at the lateral right midlung zone which could represent atelectasis or pneumonia. Chest CTA 04/19/24 21:50 IMPRESSION: 1. No pulmonary embolism. 2. Multiple patchy opacities in the right upper, lower and left lower lobes which may indicate focal pneumonia. Follow-up to resolution is advised. Nodule in the left lower lobe measuring 1.1 cm. 3 months follow-up is advised. 3. Soft tissue density in the left kidney. 3 months follow-up advised. 4. Small sliding hiatus hernia. Labs Labs: Laboratory Results - last 24 hr 04/21/24 04/21/24 04/22/24 09:08 09:08 06:38 WBC 11.1 H RBC 3.85 L Hgb 11.6 L Hct 36.2 L MCV 94.0 MCH 30.1 MCHC 32.0 RDW 14.7 H Plt Count 290 MPV 10.8 H Immature Gran % (Auto) 0.5 Neut % (Auto) 63.7 Lymph % (Auto) 26.6 [place] % (Auto) 7.3 Eos % (Auto) 1.5 Baso % (Auto) 0.4 Lymph # (Auto) 2.95 [place] # (Auto) 0.8 H Eos # (Auto) 0.2 Baso # (Auto) 0.0 Abs Immat Gran (auto) 0.05 H Absolute Neuts (auto) 7.1 H Absolute Nucleated RBC 0.000 Nucleated RBC % 0.0 C. difficile (PCR) Negative Cancelled
[2024-04-22 08:25] LABS: Anion Gap 11 mmol/L (4-12); Blood Urea Nitrogen 6 mg/dL (7-17); Calcium 8.4 mg/dL (8.4-10.2); Carbon Dioxide 20 mmol/L (22-30); Chloride 112 mmol/L (98-107); Estimated CRCL calculation 59 ml/min; Estimated Glomerular Filt Rate > 60; Glucose 96 mg/dL (65-110); Potassium 3.1 mmol/L (3.4-5.0); Sodium 143 mmol/L (137-145)
[2024-04-22] MEDS: CHOLESTYRAMINE LIGHT 4 GM POWD.PACK PO (09:11)
[2024-04-22] MEDS: SPIRONOLACTONE 25 MG TABLET PO ×2 (09:12→17:04)
[2024-04-22] MEDS: RIVAROXABAN 20 MG TABLET PO (09:12)
[2024-04-22] MEDS: METOPROLOL SUCCINATE EXT REL 50 MG TABCR PO (09:12)
[2024-04-22] MEDS: metFORMIN HCL XR 500 MG TAB.SR.24H PO (09:12)
[2024-04-22] MEDS: CLOPIDOGREL BISULFATE 75 MG TABLET PO (09:12)
[2024-04-22] MEDS: PANTOPRAZOLE SOD SESQUIHYDRATE 20 MG TAB PO (09:12)
[2024-04-22] MEDS: ISOSORBIDE MONONITRATE 30 MG TAB.ER.24H PO (09:12)
[2024-04-22] MEDS: DOXYCYCLINE HYCLATE 100 MG TABLET PO (09:12)
[2024-04-22] MEDS: ONDANSETRON INJ 4 MG/2 ML VIAL IV PUSH (09:55)
[2024-04-22 14:00] VITALS: BP 102/50; PULSE 88; RESP 17; TEMP 36.7; O2SAT 96
[2024-04-22] MEDS: ACETAMINOPHEN 325 MG TABLET 650 MG PO (18:08)
[2024-04-22 21:12] VITALS: PULSE 80; O2SAT 97
[2024-04-22 22:00] VITALS: BP 100/56; PULSE 80; RESP 18; TEMP 36.5; O2SAT 97
[2024-04-23] MEDS: SODIUM CHLORIDE 0.9% IV 1,000 ML 100 ML IV CONT (05:10)
[2024-04-23] MEDS: LEVOTHYROXINE SODIUM 150 MCG TABLET PO (05:10)
[2024-04-23 06:00] VITALS: BP 137/69; PULSE 80; RESP 18; TEMP 36.4; O2SAT 97
[2024-04-23 07:29] LABS: Basophils Absolute Auto 0.1 K/mm3 (0.0-0.1); Basophils Percent Auto 0.5 % (0.2-1.2); Eosinophils Absolute Auto 0.2 K/mm3 (0-0.3); Eosinophils Percent Auto 1.9 % (0-4.4); Hematocrit 35.7 % (37.0-47.0); Hemoglobin 11.1 g/dL (12.0-15.0); Immature Granulocyte Absolute 0.03 K/mm3 (0.00-0.031); Immature Granulocyte Percent A 0.3 % (0-0.5); Lymphocytes Absolute Auto 2.14 K/mm3 (0.9-3.2); Lymphocytes Percent Auto 20.8 % (18.3-44.2); Mean Corpuscular HGB Conc 31.1 g/dl (32-36); Mean Corpuscular Hemoglobin 30.2 pg (26-34); Mean Platelet Volume 10.5 fl (7.4-10.4); Monocytes Absolute Auto 0.8 K/mm3 (0.1-0.6); Monocytes Percent Auto 7.6 % (2.6-8.5); Neutrophils Absolute Auto 7.1 K/mm3 (1.3-6.7); Neutrophils Percent Auto 68.9 % (45.5-73.1); Platelet Count Result 245 k/mm3 (150-375); Red Blood Count 3.68 M/mm3 (4.2-5.4); Red Cell Distribution Width 14.6 % (11.5-14.5); White Blood Count 10.3 K/mm3 (4.5-10.0)
[2024-04-23 07:50] LABS: Anion Gap 10 mmol/L (4-12); Blood Urea Nitrogen 6 mg/dL (7-17); Calcium 7.8 mg/dL (8.4-10.2); Carbon Dioxide 21 mmol/L (22-30); Chloride 113 mmol/L (98-107); Estimated CRCL calculation 79 ml/min; Estimated Glomerular Filt Rate > 60; Glucose 99 mg/dL (65-110); Potassium 2.8 mmol/L (3.4-5.0); Sodium 144 mmol/L (137-145)
[2024-04-23] MEDS: SPIRONOLACTONE 25 MG TABLET PO (08:11)
[2024-04-23] MEDS: RIVAROXABAN 20 MG TABLET PO (08:11)
[2024-04-23] MEDS: PANTOPRAZOLE SOD SESQUIHYDRATE 20 MG TAB PO (08:11)
[2024-04-23] MEDS: CLOPIDOGREL BISULFATE 75 MG TABLET PO (08:11)
[2024-04-23 08:12] VITALS: PULSE 81
[2024-04-23] MEDS: METOPROLOL SUCCINATE EXT REL 50 MG TABCR PO (08:12)
[2024-04-23] MEDS: ISOSORBIDE MONONITRATE 30 MG TAB.ER.24H PO (08:12)
[2024-04-23 08:15] VITALS: BP 141/60; PULSE 81; O2SAT 96
[2024-04-23] MEDS: FLUTICASONE/SALMETEROL 115-21 MCG INHALER 1 PUFF 2 PUFF INHALATION (08:52)
--- NOTE | 2024-04-23 09:05 | P.DS_ITS ---
DS: Admitting Diagnosis Discharge Date 04/23/24 Admitting Diagnosis sepsis Multifocal Pneumonia controlled DM hypothyroidism mixed hyperlipidemia DS: Discharge Diagnosis Discharge Diagnosis (1) Multifocal pneumonia: Code(s): J18.9 - Pneumonia, unspecified organism Status: Acute (2) Sepsis: Code(s): A41.9 - Sepsis, unspecified organism Status: Acute (3) Controlled diabetes mellitus: Qualifiers: Diabetes mellitus complication status: without complication Diabetes mellitus manager long term care insulin use: without senior care use Diabetes mellitus type: type 2 Qualified Code(s): E11.9 - Type 2 diabetes mellitus without complications Code(s): E11.9 - Type 2 diabetes mellitus without complications Status: Chronic (4) Hypothyroidism, unspecified: Qualifiers: Hypothyroidism type: unspecified Qualified Code(s): E03.9 - Hypothyroidism, unspecified Code(s): E03.9 - Hypothyroidism, unspecified Status: Acute (5) Mixed hyperlipidemia: Code(s): E78.2 - Mixed hyperlipidemia Status: Acute DS: Summary Hospital Course Reason for hospitalization: sepsis Multifocal Pneumonia controlled DM hypothyroidism mixed hyperlipidemia Hospital Course: This is an 83-year-old female who presented to the hospital on 04/20/2024 with productive cough and shortness of breath. Workup in the hospital included a chest x-ray which showed a small wedge-shaped opacity at the right lateral mid lungs zone. Chest CTA was negative for PE and showed multiple patchy opacities in the right upper, lower, and left lower lobes indicating multifocal pneumonia, nodule in the left lower lobe measuring 1.1 cm, soft tissue density in the left kidney, small sliding hiatal hernia. Initial labs showed a white blood cell count of 14.8 bicarb 21, troponin negative x3, lipase 120. A UA was obtained and showed cloudy urine appearance, 1+ urine protein, trace ketone, 1+ urine bili, 3+ leukocytes, 6-10 urine RBC, 51-100 urine WBC, rare bacteria. Respiratory panel was negative for influenza a and B, RSV, COVID. C diff was negative as well. Urine and blood cultures were negative on final read. There was also a stool culture on 04/21/2024 which was negative. Patient originally meeting sepsis criteria with tachypnea, tachycardia, leukocytosis 14,800, and multifocal pneumonia. She was given normal saline bolus in the ED with improvement in her vital signs and white blood cell count. Patient was started on doxycycline, cefepime, and Flagyl initially and then changed to Levaquin 500 mg p.o. daily for pneumonia coverage. Patient is stable for discharge at this time. Her vital signs are stable, she is afebrile, she is currently on room air. She will need to follow up with her primary care physician in 1 week after finishing antibiotics. Final diagnosis: Sepsis, multifocal pneumonia Status at Discharge Cognitive/behavioral status at discharge: Alert oriented x4 Functional status at discharge: independent ambulation Overall status at discharge: patient is progressing back to baseline Time Spent with Patient Time attestation: Total time spent providing and/or coordinating discharge services: Time spent: Greater than 30 minutes Exam Narrative: General: In no acute distress, well nourished Head: atraumatic, no encephalopathy Eyes: PERRLA, sclera clear ENT: moist mucous membranes, nasal passages clear Neck: supple, no JVD, no adenopathy, trachea midline Cardiac: Normal S1 and S2. No murmur, gallops or friction rubs, peripheral pulses intact. Respiratory:mild expiratory wheezing noted bilaterally, currently on room air Gastrointestinal: soft, non-distended, non-tender, normoactive bowel sounds. : voiding without difficulty. Extremities: moves all extremities well, no edema Skin: clean, dry, intact. No wounds or lesions. Neuro: Alert and oriented x4, cranial nerves intact, no neuro deficits. Psych: normal mood, normal affect, interactive DS: Data Data Completed and Pending Completed studies during hospitalization: Chest x-ray Chest CTA Pending studies at discharge: Blood cultures Stool cultures Labs on day of discharge: Labs from last 24 hours 04/23/24 07:15 WBC 10.3 H RBC 3.68 L Hgb 11.1 L Hct 35.7 L MCV 97.0 MCH 30.2 MCHC 31.1 L RDW 14.6 H Plt Count 245 MPV 10.5 H Immature Gran % (Auto) 0.3 Neut % (Auto) 68.9 Lymph % (Auto) 20.8 Real % (Auto) 7.6 Eos % (Auto) 1.9 Baso % (Auto) 0.5 Lymph # (Auto) 2.14 Real # (Auto) 0.8 H Eos # (Auto) 0.2 Baso # (Auto) 0.1 Abs Immat Gran (auto) 0.03 Absolute Neuts (auto) 7.1 H Absolute Nucleated RBC 0.000 Nucleated RBC % 0.0 Sodium 144 Potassium 2.8 L* Chloride 113 H Carbon Dioxide 21 L Anion Gap 10 BUN 6 L Creatinine 0.50 L Estim Creat Clear Calc 79 Estimated GFR > 60 Glucose 99 Calcium 7.8 L Preliminary micro results at discharge 04/19/24 21:37 Blood Culture - Preliminary Blood 04/19/24 21:37 Blood Culture - Preliminary Blood Procedures/Treatments: None Discharge Plan Discharge Attending physician on discharge: Car Matthews Consulting providers: Otoniel Grant; Jarocho Benitez; Xander Sharma; Pato Aguirre; Tamanna Sandhu; Yane Charles; Pipe Alonzo Discharging Clinician: Noris Bautista Anticipated Discharge Date/Time: 04/23/24 09:00 Patient Disposition: Home, Self-Care Activity: as tolerated Diet: as tolerated Discharge Instructions: * Finish all your antibiotics as directed even if you are feeling better * Follow up with primary care doctor in 1 week. * You were found to have a lung nodule measuring 1.1 cm as well as a soft tissue density in the left kidney. Mention this to your primary care physician as she will need follow-up on both of these in about [address] scan. * I started you on a probiotic as well. Keep taking this for 10 days. Patient Instructions: Antibiotic Form, Rivaroxaban (By mouth), Bacterial Pneumonia (DC) Patient Language: Japanese Stand Alone Forms: General Discharge Information Follow-up/Referrals: Ahsan Ta MD [Primary Care Provider] - 1 Week Discharge Medications: New doxycycline hyclate 100 mg Tablet 100 mg PO Q12HR Qty: 3 0RF Saccharomyces boulardii [Florastor] 250 mg Capsule 250 mg PO TID Qty: 30 0RF cefuroxime axetil 250 mg Tablet 500 mg PO Q12HR Qty: 7 0RF Continued metoprolol succinate 50 mg Tablet Extended Release 24 Hr 50 mg PO QAM Qty: 90 3RF isosorbide mononitrate 30 mg Tablet Extended Release 24 Hr 30 mg PO QAM Qty: 90 3RF clopidogrel 75 mg Tablet 75 mg PO QAM Qty: 90 3RF coQ10 (ubiquinol) 100 mg Capsule 100 mg PO DAILY Xarelto 20 mg tablet 20 mg PO QAM Qty: 30 11RF Rx Instructions: must administer with morning meal. albuterol sulfate [Proventil HFA] 90 mcg/actuation HFA aerosol inhaler 2 puff INHALATION Q4H PRN (Reason: Shortness Of Breath) Qty: 18 11RF metformin 500 mg tablet extended release 24 hr 500 mg PO BID Qty: 60 11RF fluticasone propion-salmeterol [Advair Diskus] 250-50 mcg/dose blister with device 1 inh INHALATION BID Qty: 60 11RF pantoprazole 20 mg tablet,delayed release (DR/EC) 20 mg PO QAM 28 Days Qty: 30 11RF levothyroxine [Synthroid] 150 mcg tablet 150 mcg PO DAILY Qty: 90 3RF spironolactone 25 mg tablet 25 mg PO BID Qty: 120 3RF Date of admission: 04/22/24 09:36 Primary Care Provider: Ahsan Ta Admitting Provider: Lucy Espinal Attending physician on admission: Noris Bautista Condition: Improved Quality VTE Prophylaxis VTE prophylaxis: pharmacologic ordered Hospitalist MIPS Heart Failure (Exclusion) Patient has history of Heart Transplant or Left Ventricular Assistive Device?: No IF YES, STOP HERE Heart Failure (Qualifier) Patient has current or prior documentation of LVEF less than or equal to 40%, or mod/servere depressed LVSF?: No IF NO, STOP HERE
[2024-04-23 09:23] LABS: Magnesium 0.9 mg/dL (1.6-2.3)
[2024-04-23] MEDS: POTASSIUM CHLORIDE 20 MEQ ER TABLET 40 MEQ PO ×2 (09:36→12:53)
[2024-04-23] MEDS: DOXYCYCLINE HYCLATE 100 MG TABLET PO (13:23)
[2024-04-23] MEDS: cefuroxime axetiL 250 MG TABLET 500 MG PO (13:23)
[2024-04-23] MEDS: SACCHAROMYCES BOULARDII 250 MG CAPSULE PO (13:23)
[2024-04-23 14:00] VITALS: BP 124/56; PULSE 81; RESP 24; TEMP 35.6; O2SAT 98
[2024-04-23] MEDS: CHOLESTYRAMINE LIGHT 4 GM POWD.PACK PO (15:09)
[2024-04-30 18:44] LABS: Pancreatic Elastase, Stool >500 mcg/g
== END 2024-04-23 16:45 | disposition home or self-care (01) | DRG 194 ==
LOC: ANHED 22:15 → ANH3MEDSUR 04-20 00:14
PROVIDERS: Hospitalist; Internal Medicine Gastroenterology; Physician Assistant; Admitting Provider Internal Medicine; Emergency Provider Emergency Medicine; PCP Family Medicine; Visit Provider Nurse Practitioner Acute Care
DX: J18.9 Pneumonia, unspecified organism (principal); N39.0 Urinary tract infection, site not specified; K52.9 Noninfective gastroenteritis and colitis, unspecified; E11.9 Type 2 diabetes mellitus without complications; E03.9 Hypothyroidism, unspecified; E78.2 Mixed hyperlipidemia; I25.10 Atherosclerotic heart disease of native coronary artery without angina pectoris; I10 Essential (primary) hypertension; K21.9 Gastro-esophageal reflux disease without esophagitis; R31.29 Other microscopic hematuria; R91.1 Solitary pulmonary nodule; Z79.84 Long term (current) use of oral hypoglycemic drugs; Z79.02 Long term (current) use of antithrombotics/antiplatelets; Z79.01 Long term (current) use of anticoagulants; Z20.822 Contact with and (suspected) exposure to COVID-19; Z86.718 Personal history of other venous thrombosis and embolism; Z86.711 Personal history of pulmonary embolism; Z90.49 Acquired absence of other specified parts of digestive tract
CPT/HCPCS: 36415; 71046; 71275; 80048; 80053; 81001; 82653; 83690; 83735; 84484; 85025; 85610; 85730; 87040; 87045; 87086; 87427; 87449; 87493; 87637; 92610; 93005; 94640; 96361; 96365; 96367; 99285; A9270; G0378; J0696; J1836; J2405; J7030; Q9967

== ENCOUNTER 2024-07-24 08:36 | Outpatient (CLI) | payer MEDICARE, SELFPAY ==
--- NOTE | ~2024-07-24 | CT_ITS ---
Clinical Indication: Abnormal finding of lung field CT Scan of the Chest, Abdomen, and Pelvis with Contrast: Technique: Contiguous sections were acquired throughout the chest, abdomen, and pelvis after intraven ous administration of 100 cc of Omnipaque 350. Dose reduction technique was used on this scan by penny churchill automated exposure control and iterative reconstruction technique. The dose-length product (DL P) was 1226.58 mGy-cm. Findings: There is no evidence of any significant mediastinal, hilar or axillary lymphadenopathy. The mediastin al soft tissues appear normal. There is no evidence of pleural or pericardial effusion. The lungs are clear. No pulmonary nodules or infiltrates are noted. There is diffuse hepatic steatosis. The spleen, pancreas, adrenals and kidneys are within normal limi ts. There are atherosclerotic calcifications of the aorta. Gallbladder absent. No lymphadenopathy. No bowel obstruction or bowel wall thickening. There is no evidence to suggest acute appendicitis. Pelvic images are degraded by streak artifact from bilateral hip arthroplasty. Urinary bladder grossl y unremarkable. No definite adnexal mass seen. There is asymmetric masslike prominence probably invol ving the right iliopsoas muscle (axial image 197), stable since 11/11/2020. Impression: Clear lungs. No pulmonary abnormality seen. Diffuse hepatic steatosis. No acute abnormality in the abdomen or pelvis. Reviewed, dictated and finalized at [facility]. MINER Impression: Clear lungs. No pulmonary abnormality seen. Diffuse hepatic steatosis. No acute abnormality in the abdomen or pelvis.
--- OUTSIDE RECORDS SUMMARY | 2024-07-24 08:48 | XMS_ITS | Patient Health Summary ---
Author Organization [facility] Address [address] [place] [address] Care Team Providers Care Nitroglycerin Neutralizer Name Role Phone Ahsan Ta MD Primary Care Provider [phone] Note from [facility],non-owned Affiliates and Associated Physician Practices is amultiple site organization consisting of ambulatory clinics and hospital sitesin [place], [place], [place] and [place]. This disclosure is being madepursuant to the Care Everywhere program and may not contain all information available regarding this patient. 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 07/30/2001 Physician ?Lukas Gregory Description ? The specimen is received in a single formalin-filled container labeled with the patient's name and left femoral bone and tissue . ??The specimen consists of a femoral head bone and other soft tissue fragments. ??The femoral head bone measures 5.5 x 5.5 cm. ??The articular surface is covered by cartilage showing degenerative changes. ??Multiple soft tissue fragments measuring 4.5 x 4.5 cm. are received in the same container with the femoral head bone. ??Rn Hospital section of the femoral head bone shows degenerative bony changes. ??Submitted in cassettes A and B. AE/bk Microscopic Exam ? Microscopic examination of sections labeled A and B submitted in decal reveals bony spicules with intertrabecular normal hematopoietic elements. ??The surface cartilaginous capsule, fibrillary and degenerative change. ?? patchy chronic inflammation is noted in the fibrocollagenous tissue attached. ??The subchondral location shows fibrosis with new bone formation. No malignancy or granulomas are seen. ??Sr/ Diagnosis ?I. ?Left femoral head and soft tissue ?A. ??Changes consistent with degenerative arthritis ?B. ??No evidence of malignancy [facility] Director ? [facility] Pathologist ?Fran Chicas M.D. [place]. ?08/01/2001 1253 <1> CPT code ? 37667, 00129 MISCELLANEOUS SAMPLES / Unknown 07/31/2001 12:42 PM POWER CRANE OPERATOR 07/31/2001 12:42 PM POWER CRANE OPERATOR Historical Provider LAB - PATHOLOGY/C YTOLOGY ORDERABLES Care Teams Nitroglycerin Neutralizer Relationship Specialty Start Date End Date Ahsan Ta MD PCP - General 08/02/19
--- OUTSIDE RECORDS SUMMARY | 2024-07-24 08:48 | XMS_ITS | Referral Summary ---
Author Organization [facility] Address [address] [place] [address] Care Team Providers Care Computing Tutor Name Role Phone Ahsan Ta MD Primary Care Provider Source Comments [facility],non-owned Affiliates and Associated Physician Practices is amultiple site organization consisting of ambulatory clinics and hospital sitesin [place], [place], [place] and [place]. This disclosure is being madepursuant to the Care Everywhere program and may not contain all information available regarding this patient. 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
--- OUTSIDE RECORDS SUMMARY | 2024-07-24 08:48 | XMS_ITS | Clinical Summary ---
Author Organization [facility] [address] Address [address] [place] [address] Care Team Providers Care Lead Pony Rider Name Role Phone Ahsan Ta MD Primary Care Provider [phone] Allergies Active Allergy Reactions Criticality Noted Date Comments Penicillin Hives,Itching,Shortn ess of breath High 12/09/2021 Montelukast Hallucinations Medium 12/09/2021 Suicide thoughts Mbusvwt-Kmd-Dzx Reductase Inhibitors Muscle pain Medium 12/09/[address] (PROTONIX) 20 mg EC tablet TAKE 1 TABLET BY MOUTH EVERY MORNING FOR 4 WEEKS 12/01/19 22 Active spironolactone (ALDACTONE) 25 mg tablet Active levothyroxine (SYNTHROID) 150 mcg tablet Take 1 tablet (150 mcg total) by mouth daily 10/20/19 22 Active Xarelto 20 mg tablet TAKE 1 TABLET BY MOUTH EVERY EVENING. START WHEN XARELTO STARTER PACK IS COMPLETED 11/13/19 22 Active metFORMIN XR (GLUCOPHAGE XR) 500 mg 24 hr tablet Take 1 tablet (500 mg total) by mouth 2 (two) times a day 09/17/19 22 Active arginine HCl, L-arginine, 1,000 mg tablet Take 1 tablet by mouth daily Active metoprolol XL (TOPROL-XL) 50 mg extended release tablet Take 1 tablet (50 mg total) by mouth daily Active albuterol HFA (PROVENTIL HFA,VENTOLIN HFA,PROAIR HFA) 90 mcg/actuation inhaler INHALE 2 PUFFS BY MOUTH EVERY 4 HOURS NEEDED FOR SHORTNESS OF BREATH 07/18/19 24 Active cholecalciferol (Vitamin D3) 5,000 unit tablet Active clopidogreL (PLAVIX) 75 mg tablet Take 1 tablet (75 mg total) by mouth every morning 09/13/19 24 Active diazePAM (VALIUM) 2 mg tablet Active coenzyme Q10 100 mg tablet,chewable Take 200 mg by mouth daily Active multivit-min/fe rrous fumarate (MULTI VITAMIN ORAL) Active meclizine (ANTIVERT) 12.5 mg tablet TAKE 1 TABLET BY MOUTH THREE TIMES DAILY NEEDED FOR DIZZINESS Active nitroglycerin (NITROSTAT) 0.4 mg SL tablet TAKE 1 TABLET UNDER TONGUE EVERY 5 MINTES NEEDED FOR CHEST PAIN UP TO 3 DOSES 09/13/19 24 Active rosuvastatin (CRESTOR) 40 mg tablet Take 0.5 tablets (20 mg total) by mouth daily 10/13/19 24 025 Active Additional Information Patient taking differently:20 mg oral Daily,Pt is going to take 1/2 tablet every 2nd or 3rd day as tolerated, Reported on 10/13/2023 MAGNESIUM MALATE, CHELATE ORAL Take 120 mg by mouth daily Active fluticasone propion-salmete roL (ADVAIR DISKUS) 250-50 mcg/dose diskus inhaler Inhale 1 puff 2 (two) times a day Active isosorbide mononitrate ER (IMDUR) 30 mg 24 hr tablet Take 1 tablet (30 mg total) by mouth every morning 90 tablet 3 07/24/19 25 Active isosorbide mononitrate ER (IMDUR) 30 mg 24 hr tablet Take 1 tablet (30 mg total) by mouth every morning 09/13/19 24 025 Discontinued Active Problems Problem Noted Date Diagnosed Date Coronary artery disease of n ative artery of [place] heart with stable angina pectoris 09/09/2023 Stable angina pectoris 07/07/2023 Chronic anticoagulation 03/01/2023 SOB (shortness of breath) 03/01/2023 PAC (premature atrial contraction) 03/11/2022 History of pulmonary embolus (PE) 12/09/2021 Pulmonary embolism 12/09/2021 Atrial tachycardia 12/09/2021 Surgical History Surgery Date Site/Laterality Comments BREAST SURGERY 1977,1979 CHOLECYSTECTOMY 2019 JOINT REPLACEMENT 1981, 1990 LASIK 2016 Medical History Medical History Date Comments GERD (gastroesophageal reflux disease) 2016 Anxiety 2020 Asthma 1981 Brain concussion 1977 Migraines 2018 Heart disease 2018 Hypertension 2018 Thyroid disease 2015 Fibromyalgia Family History Medical History Relation Name Comments Cancer Father's Sister Jeanie Cancer Sister Amanda Relation Name Status Comments Father's Sister Jeanie Sister Amanda Social History Tobacco Use Types Packs/Day Years Used Date Smoking Tobacco: Never Smokeless Tobacco: Never Tobacco Cessation:Counseling Given: Not Answered Personal Safety Answer Date Recorded Getting School Help Needed Not on file 07/07 Comments Unknown Sex and Gender Information Value Date Recorded Sex Assigned at Not on file 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 Gender Identity Female 12/08/2021 11:08 PM CDT Sexual Orientation Not on file Obstetrics History Last Filed Vital Signs Vital Sign Reading Time Taken Comments Blood Pressure 132/86 12/06/2023 11:27 AM CDT Pulse 90 12/06/2023 11:27 AM CDT Temperature - - Respiratory Rate - - Oxygen Saturation 98% 12/06/2023 11:27 AM CDT Inhaled Oxygen Concentration - - Weight 93.4 kg (206 lb) 12/06/2023 11:27 AM CDT Height 162.6 cm (5' 4 ) 12/06/2023 11:27 AM CDT Body Mass Index 35.36 12/06/2023 11:27 AM CDT Plan of Treatment Health Maintenance Due Date Last Done Comments Depression Screening 1941 Fall Risk Assessment 1940 Osteoporosis Screening-Bone Density Scan 1940 Hepatitis B Screening 11/06/1959 DTaP/Tdap/Td Vaccine (2 - Td or Tdap) 1970 1960 Zoster Vaccine (2 of 3) 01/01/1992 11/06/1991 Well Visit 65+ 2006 Pneumococcal vaccine 65+ (2 of 2 - PPSV23 or PCV20) 12/31/2006 2006 Covid-19 Vaccine (4 - 2023-2 5 season) 2024 05/26/2021, 10/24/2020, 10/03/2020 Influenza Vaccine (#1) 2024 , 03/23/2020, 04/06/2019, Additional history exists Insurance [employer] Care Teams Lead Pony Rider Relationship Specialty Start Date End Date Ahsan Ta MD [address] [address] PCP - General Family Medicine 11/11/21
--- OUTSIDE RECORDS SUMMARY | 2024-07-24 08:48 | XMS_ITS | Referral Summary ---
Author Organization [facility] [address] Address [address] [place] [address] Care Team Providers Care Ortho Tech Name Role Phone Ahsan Ta MD Primary Care Provider [phone] Allergies Active Allergy Reactions Criticality Noted Date Comments Penicillin Hives,Itching,Shortn ess of breath High 12/09/2021 Montelukast Hallucinations Medium 12/09/2021 Suicide thoughts Kmlzwjl-Yiz-Hve Reductase Inhibitors Muscle pain Medium 12/09/2021 Medications [...] artery disease of n ative artery of [place] heart with stable angina pectoris 09/09/2023 Stable angina pectoris 07/07/2023 Chronic anticoagulation 03/01/2023 SOB (shortness of breath) 03/01/2023 PAC (premature atrial contraction) 03/11/2022 History of pulmonary embolus (PE) 12/09/2021 Pulmonary embolism 12/09/2021 Atrial tachycardia 12/09/2021 Social History Tobacco Use Types Packs/Day Years Used Date Smoking Tobacco: Never Smokeless Tobacco: Never Tobacco Cessation:Counseling Given: Not Answered Personal Safety Answer Date Recorded Getting School Help Needed Not on file 07/07 Comments Unknown Sex and Gender Information Value Date Recorded Sex Assigned at Not on file 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
--- OUTSIDE RECORDS SUMMARY | 2024-07-24 08:48 | XMS_ITS | Encounter Summary ---
Author Organization [facility] Healthcare Address [address] [place] [address] Care Team Providers Care Water Tanker Driver Name Role Phone Ahsan Ta MD Primary Care Provider [phone] Encounter Details Date Type Department Care Team (Late st Contact Info) Description 09/14/2023 Orders Only [facility] Health Information Management [address] [place] [id number] Scanning, Provider Social History Tobacco Use Types Packs/Day Years Used Date Smoking Tobacco: Never Cigarettes Smokeless Tobacco: Never Personal Safety Answer Date Recorded Getting School Help Needed Not on file 07/07 Comments Unknown Sex and Gender Information Value Date Recorded Sex Assigned at Not on file 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 Gender Identity Female 12/08/2021 11:08 PM CDT Sexual Orientation Not on file documented as of this encounter Plan of Treatment Not on file documented as of this encounter Procedures Procedure Name Priority Date/Time Associated Diagnosis Comments SCAN - LABS 09/14/2023 documented in this encounter Results * SCAN - LABS (09/14/2023) us Provider Scanning Final Result documented in this encounter Visit Diagnoses Not on filedocumented in this encounter Care Teams Water Tanker Driver Relationship Specialty Start Date End Date Ahsan Ta MD [address] [address] PCP - General Family Medicine 11/11/21 documented as of this encounter
--- OUTSIDE RECORDS SUMMARY | 2024-07-24 08:48 | XMS_ITS | Encounter Summary ---
Author Organization [facility] Healthcare Address [address] [place] [address] Care Team Providers Care Last Cleaner Name Role Phone Ahsan Ta MD Primary Care Provider [phone] Encounter Details Date Type Department Care Team (Late st Contact Info) Description 09/09/2023 Orders Only [facility] Health Information Management [address] [place] [id number] Scanning, Provider Social History Tobacco Use Types Packs/Day Years Used Date Smoking Tobacco: Never Cigarettes Smokeless Tobacco: Never Personal Safety Answer Date Recorded Getting School Help Needed Not on file 07/07 Comments Unknown Sex and Gender Information Value Date Recorded Sex Assigned at Not on file 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 Gender Identity Female 12/08/2021 11:08 PM CDT Sexual Orientation Not on file documented as of this encounter Plan of Treatment Not on file documented as of this encounter Procedures Procedure Name Priority Date/Time Associated Diagnosis Comments SCAN - RADIOLOGY/IMAGING 09/09/2023 documented in this encounter Results * SCAN - RADIOLOGY/IMAGING (09/09/2023) Anatomical Region Laterality Modality Other us Provider Scanning Final Result documented in this encounter Visit Diagnoses Not on filedocumented in this encounter Care Teams Last Cleaner Relationship Specialty Start Date End Date Ahsan Ta MD [address] [address] PCP - General Family Medicine 11/11/21 documented as of this encounter
--- OUTSIDE RECORDS SUMMARY | 2024-07-24 08:48 | XMS_ITS | Clinical Summary ---
Author Organization [facility] Address [address] [place] [address] Care Team Providers Care Builder'S Labourer Name Role Phone Ahsan Ta MD Primary Care Provider [phone] Source Comments [facility],non-owned Affiliates and Associated Physician Practices is amultiple site organization consisting of ambulatory clinics and hospital sitesin [place], [place] and [place]. This disclosure is being madepursuant to the Care Everywhere program and may not contain all information available regarding this patient. 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 12 MONTHS 1940 DTAP/TDAP/TD VACCINES (1 - Tdap) 1960 PNEUMOCOCCAL VACCINE 50+ (1 of 1 - PCV) 11/06/1991 ZOSTER VACCINE (1 of 2) 11/06/1991 Respiratory Syncytial Virus (RSV) Vaccine Pt: or over 60 yrs (1 - 1-dose 75+ series) 2016 COVID-19 VACCINE (2023-2 5 season) 2024 INFLUENZA VACCINE (#1) 2024 DEPRESSION SCREENING 06/20/2024 HEPATITIS B VACCINE Aged Out No longe r eligible based on patient's age to complete this topic HIB VACCINE Aged Out No longer eligi ble based on patient's age to complete this topic HPV VACCINE Aged Out No longer eligi ble based on patient's age to complete this topic MENINGOCOCCAL (Group B) VACCINE Aged Out No longer eligible based on patient's age to complete this topic MENINGOCOCCAL VACCINE Aged Out No adrien angelito eligible based on patient's age to complete this topic Care Teams Builder'S Labourer Relationship Specialty Start Date End Date Ahsan Ta MD PCP - General 08/02/19
[2024-07-24 09:05] LABS: Estimated Glomerular Filt Rate 53
== END 2024-07-24 08:37 | disposition home or self-care (01) ==
PROVIDERS: PCP Family Medicine; Visit Provider Family Medicine
DX: K76.0 Fatty (change of) liver, not elsewhere classified (principal); R91.8 Other nonspecific abnormal finding of lung field; N28.89 Other specified disorders of kidney and ureter
CPT/HCPCS: 71260; 74177; Q9967

== ENCOUNTER 2024-12-03 10:45 | Outpatient (CLI) | payer MEDICARE, SELFPAY ==
--- NOTE | ~2024-12-03 | MM_ITS ---
EXAMINATION: MM screening [facility] BI w dominique HISTORY: Screening TECHNIQUE: Craniocaudal and mediolateral oblique 3-D tomosynthesis images were obtained and synthetic 2-D images were generated. CAD analysis was submitted and interpreted. COMPARISON: Comparison to multiple prior studies sequentially, with oldest reviewed study dated 04/21. BREAST PARENCHYMAL COMPOSITION: Not dense: There are scattered areas of fibroglandular density. FINDINGS: There is no evidence of suspicious mass, calcification, or architectural distortion to sugg est malignancy in either breast. There has been no suspicious interval change. IMPRESSION: 1. No mammographic evidence of malignancy. 2. Recommend routine screening mammography in one year. BI-RADS Category 1: Negative Reviewed, dictated and finalized at location A.
--- OUTSIDE RECORDS SUMMARY | 2024-12-03 11:51 | XMS_ITS | Data Portability ---
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 Plan of Treatment Reminders Order Date Submit Date Provider Last Modified By Organization Details Last Modified Time Details Appointments None recorded. Lab None recorded. Referral None recorded. Procedures None recorded. Surgeries None recorded. Imaging None recorded. Medication Orders meclizine 25 mg tablet 2019 020 INTERFACE [facility] #[id number], [address] [place], [place], [id number], 0 11:13:29 Crestor 10 mg tablet 2019 020 INTERFACE [facility] #[id number], [address] [place], [place], [id number], 0 11:13:28 Patient TargetsNo targets recorded. Patient Instructions Encounter Date Encounter Id Patient Instructions Last Modified By Organization Details Last Modified Time 03/20/2019 [id number] Weight loss 20 pounds Exercise advised Low cholesterol diet advised Low sodium diet advised Not available 03/20/2019 16:29:02 Scribed by Dominique Ma PA-C Not available 03/20/2019 16:35:37 02/19/2020 [id number] Exercise advised Low cholesterol diet advised Low sodium diet advised [email or web address] Not available 02/19/2020 10:45:47 Scribed by Amanda Mendez OFFICE TECHNOLOGY INSTRUCTOR- [email or web address] Not available 02/19/2020 10:45:51 Reason for Referral None Reported. Results Created Date Observation Date Name Description Value Unit Range Abnormal Flag Note LastModifiedBy Organization Detail LastModifiedTime 03/15/20 19 03/15/2019 chase can cardi olite stres s test (PROC ) No observ ation record ed. [email or web address] [facility] (Imaging) [address] [facility] [place], [address], 03/15/2019 19:14:27 03/15/20 chase can cardi olite stres s test (PROC ) No observ ation record ed. [email or web address] Not Available 03/15 17:26:07 03/15/20 19 03/15/2019 NM, lung scan, perfu evie No observ ation record ed. [facility] (Imaging) [address] [facility] [address] [facility] [address], [place], [address], 03/16/2019 08:43:05 03/15/20 19 03/15/2019 US, echoc ardio gram No observ ation record ed. [facility] Not Available 2018 08:54:26 03/15/20 19 03/14/2019 CT, angio gram, chest , w/wo contr ast No observ ation record ed. [facility] Not Available 2018 11:45:53 03/15/20 19 03/14/2019 chase can cardi olite stres s test (PROC ) No observ ation record ed. [facility] Not Available 2018 04:46:01 03/15/20 19 03/14/2019 XR, chest No observ ation record ed. [facility] Not Available 2018 04:48:16 03/15/20 19 03/14/2019 elect eric vinesgr am No observ ation record ed. [facility] Not Available 2018 04:56:15 03/19/20 19 03/15/2019 chase can cardi olite stres s test (PROC ) No observ ation record ed. [email or web address] Not Available 2018 12:03:08 03/27/20 19 03/14/2019 chase can cardi olite stres s test (PROC ) No observ ation record ed. [email or web address] Not Available 2018 11:03:53 04/11/20 19 04/02/2019 CT, angio gram, coron sissy arter ies, w/wo contr ast No observ ation record ed. [email or web address] Not Available 2018 11:00:57 04/13/20 19 04/12/2019 US, echoc ardio gram No observ ation record ed. [facility] [address], [place], [address], 04/14/2019 03:44:02 Result Notes None recorded. Problems Name Problem SNOMED Code Status Onset Date Resolution Date Notes Provider Name and Address Organization Details Recorded Time Hyperlipidemia 67521609 Active 2018 Hala Neli [place], [place] - [facility] 9 01:27:11 Asthma 002780137 Active 2018 [place] [facility] 9 01:27:22 Fibromyalgia 528992120 Active 2018 [place] [facility] 9 01:27:33 Hiatal hernia 36871973 Active 2018 [place] [facility] 9 01:27:45 Gastroesophage al reflux disease 389619455 Active 2018 [place] [facility] 9 01:27:52 Chest pain 55512080 Active 2018 [place] [facility] 9 01:28:17 Hypothyroidism 37633374 Active 2018 [place] [facility] 9 01:28:25 Essential hypertension 03741342 Active 2018 Farris Mesto [place] - [facility] 9 15:07:59 Atypical chest pain 087493113 Active 2019 Farris [place] - [facility] 0 12:47:01 Palpitations 57356889 Active 2019 Farris [place] - [facility] 0 12:47:10 Dyspnea on exertion 71261811 Active 2019 Brenton Johnson [facility] 0 12:47:18 Problem Notes None recorded. Medical Equipment None Reported. Allergies Allergen ID Allergen Name Allergen Category Reaction Reaction Severity Criticality Documentation Date Start Date Code Code System Note Provider Name and Address Organization Details Recorded Time 95049 Product containin g 3-hydroxy -3-methyl glutaryl- coenzyme A reductase inhibitor (product) medicatio n myalgias (muscle pain) Not available Not available 02/19/2020 75439 009 SNOMED Veronica Juarez [facility] 0 10:27:22 8966 Product containin g penicilli n (product) medicatio n Not available Not available Not available 03/15/2019 47452 8001 SNOMED Desiree Mccartney [facility] 9 18:03:02 Medications Name Sig Start Date Stop Date Status Note LastModified by Organization Details LastModified Time Synthroid 150 mcg tablet Take 1 tablet every day by oral route. active Not Available Not Available No t Available Advair Diskus 100 mcg-50 mcg/dose powder for inhalation 03/15 completed Not Available Not Available Not Available meclizine 25 mg tablet Take 1 tablet 3 times a day by oral route. 2019 active Not Available Not Available Not Avai lable Advair Diskus 250 mcg-50 mcg/dose powder for inhalation Inhale 2 puffs every day by inhalati on route as needed. active Not Available Not Available No t Available montelukas t 10 mg tablet 03/15 completed Not Available Not Available Not Available Proventil HFA 90 mcg/actuat ion aerosol inhaler Inhale 2 puffs every 4 hours by inhalati on route as needed. 07/07 completed PRN Not Available Not Available Not Available pravastati n 20 mg tablet 07/07 completed pt not taking 02/19/20 s/s muscle pain Not Available Not Available Not Available metoprolol succinate ER 25 mg tablet,ext ended release 24 hr TAKE 1 TABLET BY MOUTH EVERY DAY DIRECTED active Not Available Not Available No t Available ondansetro n 4 mg disintegra ting tablet 03/20 completed Not Available Not Available Not Available Crestor 10 mg tablet Take 0.5 tablets every other day by oral route. 2019 active Not Available Not Available Not Avai lable multivitam in 1 tablet QD 07/07 completed Not Available Not Available Not Available Cholestyra mine Light 4 gram oral powder 02/18 completed pt not taking 02/19/20 Not Available Not Available Not Available GaviLyte-G 236 gram-22.74 gram-6.74 gram-5.86 gram oral solution 07/07 completed Not Available Not Available Not Available Vitals Date Recorded Body height Body mass index (BMI) Body weight Heart rate Systolic blood pressure Diastolic blood pressure Provider Name and Address Organization Details Last Updated DateTime 0 157.48 cm 41.9 kg/m2 565079. 65 g 86 /min 142 mm[Hg] 91 mm[Hg] Veronica Juarez [facility] 0 10:24:10 Date Recorded Body height Body mass index (BMI) Body weight Heart rate Oxygen saturation Oxygen saturation in Arterial blood by Pulse oximetry Systolic blood pressure Diastolic blood pressure Provider Name and Address Organization Details Last Updated DateTime 9 157.48 cm 43.2 kg/m2 181527. 8 g 104 /min 95 % 95 % 130 mm[Hg] 78 mm[Hg] GERA DARIO [facility] 9 15:45:54 Date Recorded Body height Body mass index (BMI) Body weight Heart rate Oxygen saturation Oxygen saturation in Arterial blood by Pulse oximetry Systolic blood pressure Diastolic blood pressure Provider Name and Address Organization Details Last Updated DateTime 9 157.48 cm 43.3 kg/m2 439763. 39 g 94 /min 95 % 95 % 132 mm[Hg] 76 mm[Hg] Desiree Mccartney [facility] 9 14:28:56 Social History Question Answer Notes LastModified by Organizat ion Details LastModified Time Tobacco Smoking Status Never Smoker Not Available [facility] 04/22/2020 03:30:42 What Is Your Level Of Caffeine Consumption? Occasional [id number] Information not available 04/22/2020 How Much Tobacco Do You Chew? None [id number] Information not available 04/22/2020 What Type Of Diet Are You Following? REGULAR [id number] Information not available 04/22/2020 Which Illicit Or Recreational Drugs Have You Used? None [id number] Information not available 04/22/2020 Live Alone Or With Others? With Others [email or web address] Information not available 04/16/2019 Marital Status [email or web address] Informatio n not available 03/19/2019 What Was The Date Of Your Most Recent Tobacco Screening? 04/16/2019 [id number] Information not available 04/22/2020 How Much Tobacco Do You Smoke? No [id number] Information not available 04/22/2020 General Stress Level Medium [email or web address] Information not available 04/16/2019 Sex: Unknown Functional Status Question Answer Note LastModified by Organizat ion Details LastModified Time What is your level of alcohol consumption? None [id number] Information not available 04/22/2020 Do you or have you ever used smokeless tobacco? Never used smokeless tobacco [id number] Information not available 04/22/2020 Do you or have you ever used e-cigarettes or vape? Never used electronic cigarettes [id number] Information not available 04/22/2020 What is your exercise level? Occasional [id number] Information not available 04/22/2020 Mental Status None recorded. Family History Relationship Description Onset Age of this Age Resolved Age Notes LastModified by Organization Details LastModified Time Sister Malignant tumor of breast hmesto Not available 2018 15:01:44 Sister Parkinson's disease hmesto Not available 2018 15:02:14 Sister Malignant hyperthermia hmesto Not available 15:02:56 Father Congestive heart failure hmesto Not available 2018 15:02:00 Mother Congestive heart failure hmesto Not available 2018 15:02:00 Mother Dementia hmesto Not available 0 03/19/2019 15:02:26 Medical History Condition Response Hyperlipidemia Y Thyroid Disease Y Hypertension Y Asthma Y GERD/Reflux Y Gynecological HistoryNo gynecological history recorded. Obstetrics History GPAL:G 0 P 0 0 0 0 Immunizations Vaccine Type Date Status Note Provider Nam e and Address Organization Details Recorded Time Tdap 1 completed Brenton walker, [place] - [facility] 03/19/2019 14:56:42 zoster live 2 completed Brenton walk[place], [place] - [facility] 03/19/2019 14:57:10 Pneumococcal conjugate PCV 13 7 completed [facility] 03/19/2019 14:57:40 Past Encounters Encounter ID Performer Location Encounter Start Date Encounter Closed Date Diagnosis/Indication Diagnosis SNOMED-CT Code Diagnosis ICD10 Code Diagnosis Note [id number] Emiliano Tafoya MD [facility] [place] [address] 03/20/2019 14:36:24 03/22/2019 12:55:43 Essential hypertension 45549261 I10 Controlled . Hyperlipidemia 50808623 E78.5 Needs to keep LDL less than 100, and HDL more than 40 Hypothyroidism 23600321 E03.9 Palpitations 34470201 R0 0.2 Improved on Metoprolol xl 25mg daily. Atypical chest pain 1025 03355 R07.89 lexiscan cardiolite stress test (PROC) 03-15-2019 Impression ,1.Normal myocardial perfusion at rest and during stress.2. Left ventricula r ejection fraction measuring >70%. She c Dyspnea on exertion 6084 5006 R06.09 will order echo [id number] Emiliano Tafoya MD [place] [facility] [place] [address] 04/16/2019 14:15:00 06/02/2019 19:08:09 Atypical chest pain 511555256 R07.89 lexiscan cardiolite stress test (PROC) 03-15-2019 Impression ,1.Normal myocardial perfusion at rest and during stress.2. Left ventricula r ejection fraction measuring >70%. She c Palpitations 63474082 R0 0.2 Improved on Metoprolol xl 25mg daily. Essential hypertension 81897995 I10 Controlled . Dyspnea on exertion 6084 5006 R06.09 will order echo Hyperlipidemia 61999934 E78.5 Needs to keep LDL less than 100, and HDL more than 40 Hypothyroidism 56720642 E03.9 [id number] Emiliano Tfaoya MD [facility] [address] [place] [address] 02/19/2020 10:21:08 02/19/2020 11:19:52 Atypical chest pain 429199452 R07.89 ResolvedCa rdiac CTA 04/02/2019 : mild coronary disease Palpitations 19490652 R0 0.2 Resolved with metoprolol XL 25mg daily Essential hypertension 59360681 I10 Controlled Dyspnea on exertion 6084 5006 R06.09 Discussed importance of increased activity 04/12/2019 ECHO: Study quality: Technicall y difficult. LV chamber size is normal. There is borderline LV hypertroph y. There is normal global systolic function and contractil ity. The estimated left ventricle ejection fraction is 60-65%(nor mal). LV relaxation is impaired. There is borderline left atrial enlargemen t. There is mild aortic valve sclerosis without significan t stenosis. There is mild aortic regurgitat ion. There is a dense posterior mitral annular calcificat ion. There is trivial pulmonic regurgitat ion. Hyperlipidemia 54104532 E78.5 Needs to keep LDL less than 100, and HDL more than 40. No recent lipid on fileShe stopped taking pravastati n d/t muscle cramps, will try on Crestor 5mg daily.Will get fasting lipids for follow-up Vertigo 295953240 R42 Will start meclizine 25mg TID PRN Health Concerns Section Related Observation LastModified by Organization Detai ls LastModified Time None Recorded Concern Status LastModified by Organization Details LastModified Time None Recorded Advance Directives Directive None Recorded Payers Insurance Date Sequence Insurance Name Policy Number Policy Sawant Covered Member ID Sawant Member ID Guarantor Name 02/19/2020 1 [place] Damaris Wilhelm [id number] Damaris Wilhelm 02/19/2020 2 [place] [id number] Damaris Wilhelm [id number] Damaris Wilhelm Notes Date Note Type Note Provider Name and Address Organization Details Recorded Time 9 text/html 03/20/19 CC : Chest pain, Palpitation, dyspnea 78 years-old Female with h/o Hyperlipidemia , Asthma, Fibromylagia, Hiatal Hernia , and GERD is here for hospital follow up. She was in [facility] in 03/15/19 because of Chest pain . EKG showed sinus tachycardia, left axis deviation, poor R wave progression. Cardiac enzymes were negative . Had normal myocardial perfusion study done in 03/15/19 with EF >70% . Since discharge she reports feeling well, with no recurrence of palpitations. Was started on Metoprolol xl 25mg daily, and records HR at home, ave 70-80s. She is active with exercise, walks total of 20 min daily (7min x 3 times daily), does light weight lifting. She continues to have mild chest pain with diaphoresis.Reports shortness of breath after walking 7 min. No chest pain. No shortness of breath at rest. No dyspnea on exertion. No orthopnea. No PND. No dizziness. No palpitation. No syncope or near syncope. No leg swelling. No nausea and vomiting. Reports having LHC >10 years ago, with normal coronaries. Results from this visit, or from the past: CMP, serum or plasma 03-14-2019 03/14/19: Na 141 , K 3.6, CL 106, CO2 19, GLU 146, BUN 14 ,CR 0.9, AST 32 ,ALT 31, PT/INR 03-14-2019 03/14/19: HB 15.4, HT 45.9, PT 12.1, INR 0.9 TSH + free T4, serum 03-14-2019 03/14/19: TSH 0.364 TSH + free T4, serum 03-14-2019 03/14/19: TSH 0.364 US, echocardiogram 03-15-2019 03/15/19 ECHO: Indication for the stress test. Chest pain. No abnormal ST-T wave changes with lexiscan. Nuclear test results to follow. NM, lung scan, perfusion 03-15-2019 03/15/19 NM STRESS PERFUSION: Normal myocardial perfusion at rest and during stress. Left ventricular ejection fraction measuring> 70%. lexiscan cardiolite stress test (PROC) 03-15-2019 Impression,1.Normal myocardialperfusion at rest and during stress.2. Left ventricular ejection fraction measuring >70%. electrocardiogram 03-14-2019 03/14/19 EKG: Sinus tachycardia. Left axis deviation. Delayed precordial R/S transition. Abnormal ECG. XR, chest 03-14-2019 03/14/19 CHEST 2 VIEW: No active cardiopulmonary disease. Aortic atherosclerosis. CT, angiogram, chest, w/wo contrast 03-14-2019 03/14/19 CTA CHEST: No evidence of pulmonary embolism. Emiliano Tafoya MD [address] [place], [address], [place] [facility] 06/04/2019 01:55:06 9 text/html 04/16/19 CC : Chest pain, Palpitation, dyspnea 78 years-old Female with h/o Hyperlipidemia , Asthma, fibromyalgia, Hiatal Hernia , and GERD is here for cardiac follow up. *Had Cardiac CTA done in 04/02/19 showed mild coronary disease . *Had stress test done in 03/14/19 showed Indication for the stress test Chest pain. No abnormal ST-T wave changes with lexiscan. *Had ECHO .....Study quality: Technically difficult. LV chamber size is normal. There is borderline LV hypertrophy. There is normal global systolic function and contractility. The estimated left ventricle ejection fraction is 60-65%(normal). LV relaxation is impaired. There is borderline left atrial enlargement. There is mild aortic valve sclerosis without significant stenosis. There is mild aortic regurgitation. There is a dense posterior mitral annular calcification. There is trivial pulmonic regurgitation. Results from this visit, or from the past: 03/14/19: Na 141 , K 3.6, CL 106, CO2 19, GLU 146, BUN 14 ,CR 0.9, AST 32 ,ALT 31,03/14/19: HB 15.4, HT 45.9, PT 12.1, INR 0.909: TSH 0.3629603/14/19: TSH 0.364 NM, lung scan, perfusion 03-15-2019 03/15/19 NM STRESS PERFUSION: Normal myocardial perfusion at rest and during stress. Left ventricular ejection fraction measuring> 70%. lexiscan cardiolite stress test (PROC) 03-15-2019 Impression,1.Normal myocardial perfusion at rest and during stress.2. Left ventricular ejection fraction measuring >70%. electrocardiogram 03-14-2019 03/14/19 EKG: Sinus tachycardia. Left axis deviation. Delayed precordial R/S transition. Abnormal ECG. XR, chest 03-14-2019 03/14/19 CHEST 2 VIEW: No active cardiopulmonary disease. Aortic atherosclerosis. CT, angiogram, chest, w/wo contrast 03-14-2019 03/14/19 CTA CHEST: No evidence of pulmonary embolism. US, echocardiogram 03-15-2019 03/15/19 ECHO: Indication for the stress test. Chest pain. No abnormal ST-T wave changes with lexiscan. Nuclear test results to follow. Emiliano Tafoya MD [address] [place], [address], [place] - [facility] 06/02/2019 19:08:08 0 text/html 02-19-20 Due to the CDC nance virus mandated precautions for at risk patients, this visit is being conducted virtually via smart phone face time mode. Patient has agreed for the physician to perform the visit in this manner. CC : Chest pain, Palpitation, dyspnea 79 years-old Female with h/o mild CAD, Hyperlipidemia, Asthma, fibromyalgia, Hiatal Hernia , and GERD is here for cardiac follow up. She was last seen in clinic 10 months ago on 04/16/2019. Since then she reports feeling okay. She reports significant dyspnea on exertion. She reports having issues with vertigo and double vision, improved since having eyeglasses with prisms. However she reports this has impacted her ability to exercise. Her BP at home typically runs 130s-140s/70s-80s. No chest pain. No shortness of breath at rest. No orthopnea. No PND's. No palpitation. No syncope or near syncope. No leg swelling. No nausea and vomiting. No side effects from medications. Had Cardiac CTA done in 04/02/19 showed mild coronary disease . Had stress test done in 03/14/19 showed Indication for the stress test Chest pain. No abnormal ST-T wave changes with lexiscan. 04/12/19 ECHO: Study quality: Technically difficult. LV chamber size is normal. There is borderline LV hypertrophy. There is normal global systolic function and contractility. The estimated left ventricle ejection fraction is 60-65%(normal). LV relaxation is impaired. There is borderline left atrial enlargement. There is mild aortic valve sclerosis without significant stenosis. There is mild aortic regurgitation. There is a dense posterior mitral annular calcification. There is trivial pulmonic regurgitation. Results from this visit, or from the past: 03/14/19: Na 141 , K 3.6, CL 106, CO2 19, GLU 146, BUN 14 ,CR 0.9, AST 32 ,ALT 31,03/14/19: HB 15.4, HT 45.9, PT 12.1, INR 0.909: TSH 0.63813: TSH 0.364 03/14/19 EKG: Sinus tachycardia. Left axis deviation. Delayed precordial R/S transition. Abnormal ECG. 03/15/19 NM STRESS PERFUSION: Normal myocardial perfusion at rest and during stress. Left ventricular ejection fraction measuring> 70%. [facility] STRESS TEST 03/15/19 Impression,1.Normal myocardial perfusion at rest and during stress.2. Left ventricular ejection fraction measuring >70%. 03/14/19 CHEST 2 VIEW: No active cardiopulmonary disease. Aortic atherosclerosis. Cardiac CTA 04/02/19:mild coronary disease. 03/14/19 CTA CHEST: No evidence of pulmonary embolism. 04/12/19 ECHO: Study quality: Technically difficult. LV chamber size is normal. There is borderline LV hypertrophy. There is normal global systolic function and contractility. The estimated left ventricle ejection fraction is 60-65%(normal). LV relaxation is impaired. There is borderline left atrial enlargement. There is mild aortic valve sclerosis without significant stenosis. There is mild aortic regurgitation. There is a dense posterior mitral annular calcification. There is trivial pulmonic regurgitation. 03/15/19 ECHO: Indication for the stress test. Chest pain. No abnormal ST-T wave changes with lexiscan. Nuclear test results to follow. Emiliano Tafoya MD [address] [place], [address], [facility] - [facility] 02/19/2020 11:19:49 OBGyn Episode No OBEpisode recorded.
--- OUTSIDE RECORDS SUMMARY | 2024-12-03 11:51 | XMS_ITS | Referral Summary ---
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); PAC (premature atrial contraction); Atrial tachycardia; History of pulmonary embolus (PE); Chronic anticoagulation from Last 3 Months Allergies Active Allergy Reactions Criticality Noted Date Comments Penicillin Hives,Itching,Shortn ess of breath High 12/09/2021 Montelukast Hallucinations Medium 12/09/2021 Suicide thoughts Izsozcj-Xgn-Amz Reductase Inhibitors Muscle pain Medium 12/09/[address] (PROTONIX) 20 mg EC tablet TAKE 1 TABLET BY MOUTH EVERY MORNING FOR 4 WEEKS 12/01/19 Active spironolactone (ALDACTONE) 25 mg tablet Active Xarelto 20 mg tablet TAKE 1 TABLET BY MOUTH EVERY EVENING. START WHEN XARELTO STARTER PACK IS COMPLETED 11/13/19 22 Active metFORMIN XR (GLUCOPHAGE XR) 500 mg 24 hr tablet Take 1 tablet (500 mg total) by mouth 2 (two) times a day 09/17/19 22 Active arginine HCl, L-arginine, 1,000 mg tablet Take 1 tablet by mouth daily Active albuterol HFA (PROVENTIL HFA,VENTOLIN HFA,PROAIR HFA) 90 mcg/actuation inhaler INHALE 2 PUFFS BY MOUTH EVERY 4 HOURS NEEDED FOR SHORTNESS OF BREATH 07/18/19 24 Active cholecalciferol (Vitamin D3) 5,000 unit tablet Active coenzyme Q10 100 mg tablet,chewable Take 200 mg by mouth daily Active multivit-min/fe rrous fumarate (MULTI VITAMIN ORAL) Active meclizine (ANTIVERT) 12.5 mg tablet TAKE 1 TABLET BY MOUTH THREE TIMES DAILY NEEDED FOR DIZZINESS Active MAGNESIUM MALATE, CHELATE ORAL Take 120 mg by mouth daily Active fluticasone propion-salmete roL (ADVAIR DISKUS) 250-50 mcg/dose diskus inhaler Inhale 1 puff 2 (two) times a day Active isosorbide mononitrate ER (IMDUR) 30 mg 24 hr tablet Take 1 tablet (30 mg total) by mouth every morning 90 tablet 3 07/24/19 25 Active levothyroxine (SYNTHROID) 137 mcg tablet Take 1 tablet (137 mcg total) 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 Active nitroglycerin (NITROSTAT) 0.[address] 1 tablet (0.4 mg total) under the tongue every 5 (five) minutes as needed for chest pain 25 tablet 1 09/05/19 25 Active clopidogreL (PLAVIX) 75 mg tablet Take 1 tablet (75 mg total) by mouth every morning 90 tablet 2 09/18/19 25 Active metoprolol XL (TOPROL-XL) 50 mg extended release tablet TAKE 1 TABLET BY MOUTH EVERY MORNING 90 tablet 2 11/14/19 25 Active metoprolol XL (TOPROL-XL) 50 mg extended release tablet TAKE 1 TABLET BY MOUTH EVERY MORNING 90 tablet 08/21/19 25 025 Discontinued Active Problems Problem Noted Date Diagnosed Date Coronary artery disease of n ative artery of lime heart with stable angina pectoris 09/09/2023 Stable angina pectoris 07/07/2023 Chronic anticoagulation 03/01/2023 SOB (shortness of breath) 03/01/2023 PAC (premature atrial contraction) 03/11/2022 History of pulmonary embolus (PE) 12/09/2021 Pulmonary embolism 12/09/2021 Atrial tachycardia 12/09/2021 Social History Tobacco Use Types Packs/Day Years Used Date Smoking Tobacco: Never Smokeless Tobacco: Never Tobacco Cessation:Counseling Given: Not Answered Comments Unknown Sex and Gender Information Value Date Recorded Sex Assigned at Not on file 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 Gender Identity Female 12/08/2021 11:08 PM CDT Sexual Orientation Not on file Last Filed Vital Signs Vital Sign Reading Time Taken Comments Blood Pressure 122/78 09/04/2024 1:57 PM CDT Pulse 92 09/04/2024 1:57 PM CDT Temperature - - Respiratory Rate - - Oxygen Saturation 90% 09/04/2024 1:57 PM CDT Inhaled Oxygen Concentration - - Weight 89.8 kg (198 lb) 09/04/2024 1:57 PM CDT Height 162.6 cm (5' 4) 09/04/2024 1:57 PM CDT Body Mass Index 33.99 09/04/2024 1:57 PM CDT Plan of Treatment Not on file Insurance [facility] Care Teams Quality Measurement Specialist Relationship Specialty Start Date End Date Ahsan Ta MD [address] [address] PCP - General Family Medicine 11/11/21
--- OUTSIDE RECORDS SUMMARY | 2024-12-03 11:51 | XMS_ITS | Clinical Summary ---
Author Organization [facility] [address] Address [address] [place] [address] Care Team Providers Care Underwriting Account Representative Name Role Phone Ahsan Ta MD Primary Care Provider [phone] Allergies Active Allergy Reactions Criticality Noted Date Comments Penicillin Hives,Itching,Shortn ess of breath High 12/09/2021 Montelukast Hallucinations Medium 12/09/2021 Suicide thoughts Fexxhrr-Yjl-Gwv Reductase Inhibitors Muscle pain Medium 12/09/2021 Medications [...] 1 tablet (137 mcg total) by mouth belt polisher before breakfast Active nitroglycerin (NITROSTAT) 0.4 mg [...] artery disease of n ative artery of [place] heart with stable angina pectoris 09/09/2023 Stable angina pectoris 07/07/2023 Chronic anticoagulation 03/01/2023 SOB (shortness of breath) 03/01/2023 PAC (premature atrial contraction) 03/11/2022 History of pulmonary embolus (PE) 12/09/2021 Pulmonary embolism 12/09/2021 Atrial tachycardia 12/09/2021 Encounters Date Type Department Care Team Description 09/04/2024 2:00 PM CDT Office Visit [facility] Cardiology at [address] [place] [address] [place] Cabello MD Coronary artery disease of [place] artery of [place] heart with stable angina pectoris (Primary Dx); PAC (premature atrial contraction); Atrial tachycardia; History of pulmonary embolus (PE); Chronic anticoagulation from Last 3 Months Surgical History Surgery Date Site/Laterality Comments BREAST SURGERY 1977,1979 CHOLECYSTECTOMY 2019 JOINT REPLACEMENT 1981, 1990 LASIK 2017 ANGIOPLASTY 2023 Medical History Medical History Date Comments GERD (gastroesophageal reflux disease) 2017 Anxiety 2020 Asthma 1982 Brain concussion 1977 Migraines 2018 Heart disease 2018 Hypertension 2018 Thyroid disease 2015 Fibromyalgia Family History Medical History Relation Name Comments Cancer Father's Sister Jeanie Cancer Sister Amanda Relation Name Status Comments Father Juliocesar Father's Sister Jeanie Mother Aidan Alive Sister Amanda Social History Tobacco Use Types Packs/Day Years Used Date Smoking Tobacco: Never Smokeless Tobacco: Never Tobacco Cessation:Counseling Given: Not Answered Comments Unknown Sex and Gender Information Value Date Recorded Sex Assigned at Not on file 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 Gender Identity Female 12/08/2021 11:08 PM [...] 09/04/2024 1:57 PM CDT Plan of Treatment Health Maintenance Due Date Last Done Comments Depression Screening 1941 Fall Risk Assessment 1941 Osteoporosis Screening-Bone Density Scan 1941 Hepatitis B Screening 11/06/1959 DTaP/Tdap/Td Vaccine (2 - Td or Tdap) 1970 1960 Zoster Vaccine (2 of 3) 01/01/1992 11/06/1991 Well Visit 65+ 2006 Pneumococcal vaccine 65+ (2 of 2 - PPSV23) 12/31/2006 2006 Covid-19 Vaccine (2023-2 5 season) 2024 05/26/2021, 10/24/2020, 10/03/2020 Influenza Vaccine (Season Ended) 2025 05/26/2021, 03/23/2020, 04/06/2019, Additional history exists Insurance [facility] Address: [address] [address] Care Teams Underwriting Account Representative Relationship Specialty Start Date End Date Ahsan Ta MD [address] [address] PCP - General Family Medicine 11/11/21
--- OUTSIDE RECORDS SUMMARY | 2024-12-03 11:52 | XMS_ITS | Clinical Summary ---
Author Organization [facility] Address [address] [place] [address] Care Team Providers Care Commercial Shrimping Captain Name Role Phone Ahsan Ta MD Primary Care Provider [phone] Source Comments [facility],non-owned Affiliates and Associated Physician Practices is amultiple site organization consisting of ambulatory clinics and hospital sitesin [place], [place], [place] and [place]. This disclosure is being madepursuant to the Care Everywhere program and may not contain all information available regarding this patient. 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 Gender Identity Not on file Sexual Orientation Not on file Plan of Treatment Health Maintenance Due Date Last Done Comments BONE DENSITY TESTING 1941 DTAP/TDAP/TD VACCINES (1 - Tdap) 1960 PNEUMOCOCCAL VACCINE 50+ (1 of 1 - PCV) 11/06/1991 ZOSTER VACCINE (1 of 2) 11/06/1991 Respiratory Syncytial Virus (RSV) Vaccine Pt: or over 60 yrs (1 - 1-dose 75+ series) 2016 COVID-19 VACCINE ( - 2023-2 5 season) 2024 DEPRESSION SCREENING 06/20/2024 INFLUENZA VACCINE (Season Ended) 2025 HEPATITIS B VACCINE Aged Out No longe r eligible based on patient's age to complete this topic HIB VACCINE Aged Out No longer eligi ble based on patient's age to complete this topic HPV VACCINE Aged Out No longer eligi ble based on patient's age to complete this topic MENINGOCOCCAL (Group B) VACC INE SHARED DECISION-MAKING Aged Out No longer eligibl e based on patient's age to complete this topic MENINGOCOCCAL GROUPS A/C/Y/W VACCINE Aged Out No longer eligible b ased on patient's age to complete this topic Insurance MEDICARE [facility] Care Teams Commercial Shrimping Captain Relationship Specialty Start Date End Date Ahsan Ta MD PCP - General 08/02/19
== END 2024-12-03 10:46 | disposition home or self-care (01) ==
PROVIDERS: PCP Family Medicine; Visit Provider Family Medicine
DX: Z12.31 Encounter for screening mammogram for malignant neoplasm of breast (principal)
CPT/HCPCS: 77063; 77067